=== PATIENT | male | born 1960 | race Caucasian/White ===

== ENCOUNTER 2016-08-11 17:16 | Inpatient (IN) | payer BC ==
[~2016-08-11] VITALS: Ht 182.9 cm; Wt 138.2 kg
[~2016-08-11 17:16] MED LIST: ALT10 PO; AMBCR125 PO; ESCI1TAB10 PO; MULT-506 PO; RISP1TAB68 PO
[2016-08-11] MEDS ORDERED: OPTIRAY 320 IV PRN (17:45)
[2016-08-11 17:51] LABS: BASO % 0.4 %; BASO ABS # 0.03 K/uL (0-0.2); COMPLETE YES; EOS % 6.3 %; HEMATOCRIT 55.8 % (42-52); IG% 0.3 %; LYMPH ABS # 2.32 K/uL (1.2-3.4); MEAN CORPUSCULAR HEMOGLOBIN 32.4 pg (25-34); MEAN CORPUSCULAR HGB CONC 32.4 g/dl (32-36); MEAN PLATELET VOLUME 9.1 fL (7.4-10.4); MONO % 9.3 %; NEUT % 54.7 %; PLATELET COUNT 208 K/uL (130-400); RED BLOOD COUNT 5.58 M/uL (4.7-6.1)
[2016-08-11] MEDS ORDERED: TRAM-10 PO (17:54)
[2016-08-11] MEDS ORDERED: HYDR12.55 PO (17:54)
[2016-08-11] MEDS ORDERED: IBUP-1449 PO (17:54)
[2016-08-11] MEDS ORDERED: ALT/10 PO (17:54)
[2016-08-11] MEDS ORDERED: FRS/40 PO (17:54)
[2016-08-11 17:55] LABS: ISTAT CREATININE 0.9 mg/dl (0.6-1.3); ISTAT HEMOGLOBIN 19.7 g/dl (14.0-18.0); ISTAT IONIZED CALCIUM 1.16 mmol/l (1.12-1.32)
[2016-08-11 17:59] LABS: POINT OF CARE TROPONIN I 0.02 ng/ml (0-0.045)
--- NOTE | 2016-08-11 18:13 | DIAGNOSTIC IMAGING REPORT ---
SINGLE VIEW CHEST CLINICAL HISTORY: Atypical chest pain. FINDINGS: An AP, portable, upright chest radiograph is obtained. No prior studies are available for comparison at the time of dictation. The examination is degraded by portable technique and apical lordotic positioning. The heart is enlarged and there is pulmonary basilar congestion. There is elevation right hemidiaphragm and bibasilar atelectasis. No airspace consolidation is seen typical for pneumonia and there is no large pleural effusion. No pneumothorax is seen. The bony thorax is grossly intact. IMPRESSION: Cardiomegaly with evidence of mild congestive failure. Electronically signed by: Raffy Gleason M.D. 08/11/2016 6:12 PM Dictated Date/Time: 08/11/2016 6:12 PM
[2016-08-11 18:16] LABS: BUN/CREATININE RATIO 19.9 (10-20); CREATININE 0.96 mg/dl (0.60-1.40); POTASSIUM 4.6 mmol/L (3.5-5.1)
[2016-08-11 18:25] LABS: CKMB/CK RATIO 2.7 (0-3.0)
--- NOTE | 2016-08-11 18:40 | DIAGNOSTIC IMAGING REPORT ---
CT ANGIOGRAM OF THE CHEST CLINICAL HISTORY: Dyspnea. Leg swelling. COMPARISON STUDY: Chest x-ray dated 08/11/2016. TECHNIQUE: Following the IV administration of 94 cc of Optiray 320, CT angiogram of the chest was performed from the upper abdomen to the thoracic inlet utilizing the pulmonary embolus protocol. Images are reviewed in the axial, sagittal, and coronal planes. 3-D MIPS images are created and assessed. IV contrast was administered without complication. The examination is moderately degraded by motion artifact. CT DOSE: 776.79 mGy.cm FINDINGS: Thyroid: Imaged portions of the thyroid gland are normal in size and attenuation. Thoracic aorta: The thoracic aorta is normal in caliber and demonstrates standard 3-vessel arch anatomy. No dissection is seen. Pulmonary vasculature: The pulmonary trunk is dilated, measuring 3.5 cm in diameter. This suggests pulmonary artery hypertension. There are no filling defects identified in main, lobar, or proximal segmental pulmonary branches to suggest pulmonary embolus. Evaluation of the peripheral vessels is degraded by motion artifact. Heart: The heart is enlarged and without pericardial effusion. There are coronary artery calcifications. Lungs and pleural spaces: Evaluation of the lung parenchyma is degraded by motion artifact. There is elevation of the right hemidiaphragm with atelectasis at the right lung base. No airspace consolidation is seen typical for pneumonia and there is no pleural effusion. The trachea and central airways are clear. Mediastinum: There is no mediastinal lymphadenopathy. Zari: Clear. Axillae: There is no axillary lymphadenopathy. Upper abdomen: The liver is enlarged and steatotic. There is nodularity of the surface contour suggesting early change of cirrhosis. A tiny hiatal hernia is identified. Skeletal structures: No lytic or blastic bony lesions are seen. IMPRESSION: 1. Motion degraded examination. 2. There is no evidence of pulmonary embolus in the main, lobar, or proximal segmental pulmonary arteries. 3. There is no airspace consolidation typical for pneumonia or pleural effusion. 4. Cardiomegaly with evidence of pulmonary artery hypertension. 5. Hepatomegaly and hepatic steatosis. Nodularity of the hepatic surface contour suggests early change of cirrhosis. Electronically signed by: Raffy Gleason M.D. 08/11/2016 6:38 PM Dictated Date/Time: 08/11/2016 6:33 PM
[2016-08-11 18:43] LABS: PROTHROMBIN TIME (PATIENT) 10.6 SECONDS (9.0-12.0)
[2016-08-11] MEDS ORDERED: ASPIRIN 81 MG CHEW PO STA (18:52)
[2016-08-11] MEDS ORDERED: LEVALBUTEROL/IPRATROPIUM NEB INH STA (19:51)
[2016-08-11 19:52] LABS: THYROID STIMULATING HORMONE 2.88 uIu/ml (0.300-4.500)
[2016-08-11] MEDS ORDERED: ACETAMINOPHEN 325 MG TAB PO PRN (20:00)
[2016-08-11] MEDS ORDERED: TRAMADOL HCL 50 MG TAB PO PRN (20:00)
[2016-08-11] MEDS ORDERED: LEVALBUTEROL/IPRATROPIUM NEB INH PRN (20:00)
[2016-08-11] MEDS ORDERED: NITROGLYCERIN 0.4 MG SL PER TAB CHARGE SL PRN (20:00)
[2016-08-11 20:10] LABS: ALLEN TEST POS (POS); ARTERIAL BLD GAS O2 SATURATION 80.2 % (90-95); ARTERIAL BLOOD GAS BASE EXCESS 5.5 mEq/L (-9-1.8); ARTERIAL BLOOD GAS HCO3 35 mmol/L (19-24); ARTERIAL BLOOD GAS PO2 47 mmHg (80-95); O2 ADMINISTRATION ROOM AIR
--- NOTE | 2016-08-11 20:53 | DIAGNOSTIC IMAGING REPORT ---
ULTRASOUND BILATERAL LOWER EXTREMITY VENOUS CLINICAL HISTORY: Lower extremity edema. COMPARISON STUDY: No priors. TECHNIQUE: Real-time, grayscale, and color Doppler sonography of the deep veins of the right and left lower extremity was performed from the inguinal crease to the calf. Compression and augmentation were utilized. FINDINGS: There is no sonographic evidence of deep venous thrombosis identified in the right or left lower extremity. The common femoral, superficial femoral, and popliteal veins are patent and normally compressible bilaterally. The greater saphenous vein and the profunda femoris vein at the junction with the common femoral vein are clear in both legs. The visualized calf veins are patent bilaterally. IMPRESSION: There is no sonographic evidence of deep venous thrombosis identified in the right or left lower extremity. Electronically signed by: Raffy Gleason M.D. 08/11/2016 8:52 PM Dictated Date/Time: 08/11/2016 8:51 PM
[2016-08-11 21:10] VITALS: BP 150/87; PULSE 96; TEMP 37; O2SAT 79; Ht 182.9 cm; Wt 138.2 kg
[2016-08-11] MEDS ORDERED: IPRATROPIUM BROMIDE NEB SOLN 0.02% 2.5 ML VIAL INH STA (21:28)
[2016-08-11] MEDS ORDERED: LEVALBUTEROL 1.25MG/0.5ML NEB INH STA (21:28)
[2016-08-11] MEDS ORDERED: LEVALBUTEROL 1.25MG/0.5ML NEB INH PRN (21:30)
[2016-08-11] MEDS ORDERED: IPRATROPIUM BROMIDE NEB SOLN 0.02% 2.5 ML VIAL INH PRN (21:30)
[2016-08-11] MEDS ORDERED: LISINOPRIL 2.5 MG TAB PO STA (21:57)
[2016-08-11] MEDS: ENOXAPARIN 40 MG/0.4 ML SYR SC SCH (22:00)
[2016-08-11 22:14] VITALS: PULSE 105; O2SAT 93
--- NOTE | 2016-08-11 22:28 | HISTORY & PHYSICAL EXAMINATION ---
DATE OF ADMISSION: 08/11/2016 PRIMARY CARE DOCTOR: Dr. Christianson. Hx obtained from px and records. CHIEF COMPLAINT: Shortness of breath, sent by cleaning specialist. HISTORY OF PRESENT ILLNESS: Medical history significant for chronic diastolic HF, hypertension, depression, ongoing tobacco abuse. Recent confinement 2009 at the mental health unit for depression. The last month, the patient noted shortness of breath, especially on exertion. No new cough symptoms. Increasing abdominal distention and libby leg swelling. some orthopnea sx. weight gain of about 40 lbs as per px. Seen at PCP's office 3 weeks ago. CXR pulm congestion Px started on diuretics. Improvement of swelling and symptoms. Outpx Cardiology evaluation today. 2D echo showed LVH, mild. EF 60%-70%. RV pressure, volume overload, grade 1 diastolic dysfunction, RV dilatation, typical of acute PE, mild lateral right ventricle akinesis, sparing the basal and apical lateral segments, congenital bicuspid aortic valve, mild calcific aortic valve without stenosis. pulmonary hypertension present. Patient sent to the Emergency Room for further evaluation. Px unaware of snoring sx even when was still alive. Claims he had a normal sleep study years ago after a sinus surgery. MEDICAL HISTORY: As above. SURGERIES: sinus surgery. HOME MEDICATIONS: Include Lasix, HCTZ, Motrin, multivitamins, Altace, Ultram. ALLERGIES: None. FAMILY HISTORY: No heart disease, no lung disease. PERSONAL AND SOCIAL HISTORY: One pack daily. No chronic intake of alcoholic beverages. 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 REVIEW OF SYSTEMS: As per HPI, all other ROS negative. PHYSICAL EXAMINATION: VITAL SIGNS: Blood pressure was noted to be 120/80, pulse rate 101, RR 20, temperature 37, sats 92 on 3 liters. GENERAL: Noted to be obese, no overt respiratory distress. SKIN: Normal color. HEENT: [place] palpebral conjuctivae. Moist buccal mucosa. nasal cannula in place NECK: Short. LUNGS: Occasional wheeze. HEART: Tachycardic. ABDOMEN: Some distension. NT EXTREMITIES: Bilateral lower extremity edema, right greater than left. No tenderness. NEUROLOGIC: No gross focality. LABS: Hemoglobin was noted to be 18.1, white cell count 8, platelets 208. Sodium 136, potassium 4.6, chloride 96, CO2 35, BUN 19, creatinine 0.9, glucose was noted to be 98, troponin 0.02. BNP was normal. Chest x-ray, some congestion, cardiomegaly. CTA noted no evidence of pulmonary embolus, main, lobar, proximal segment pulmonary arteries. cardiomegaly, pulmonary hypertension, hepatomegaly, hepatic steatosis. EKG, normal sinus rhythm, LAD, LAFB, LVH, poor R-wave progression. ASSESSMENT: 1. Acute diastolic congestive heart failure right sided HF possible OHS, underlying chronic obstructive pulmonary disease subacute sx some improvement ff outpx diuretic therapy instituted a few weeks back. 2. Hypoxemic respiratory failure possible hypercapnia possibly chronic 3. Hypertension, stable. 4. Ongoing tobacco abuse. 5. Depression, stable off meds. 6. LE swelling 2 to RSHF ro dvt PLAN: PCU. Continue home diuretics Further management as per Cardiology. Plan for possible right-sided cardiac catheterization tomorrow as per outpx Cardio note. Baseline ABG. Outpatient PFTs/Sleep study/Pulmonary evaluation. Nicotine patch. LE dopplers ro dvt DVT prophylaxis, Lovenox subQ. Full code. MTDD
[2016-08-11 23:22] VITALS: BP 122/70; PULSE 98; TEMP 36.8; O2SAT 90
[2016-08-12] VITALS (9 sets, daily range): BP systolic 115–146; BP diastolic 73–77; PULSE 83–127; TEMP 36.7–37.2; O2SAT 88–93
[2016-08-12] MEDS ORDERED: [UNRECOGNIZED DRUG - REMARK] SCH
[2016-08-12 06:16] LABS: BASO % 0.3 %; BASO ABS # 0.02 K/uL (0-0.2); COMPLETE YES; EOS % 4.9 %; HEMATOCRIT 56.6 % (42-52); IG% 0.1 %; LYMPH % 21.5 %; LYMPH ABS # 1.58 K/uL (1.2-3.4); MEAN CELL VOLUME 103.3 fL (80-100); MEAN CORPUSCULAR HEMOGLOBIN 33.2 pg (25-34); MEAN CORPUSCULAR HGB CONC 32.2 g/dl (32-36); MEAN PLATELET VOLUME 8.9 fL (7.4-10.4); MONO % 8.7 %; NEUT % 64.5 %; PLATELET COUNT 176 K/uL (130-400); RED BLOOD COUNT 5.48 M/uL (4.7-6.1); WHITE BLOOD COUNT 7.36 K/uL (4.8-10.8)
[2016-08-12 06:56] LABS: BUN/CREATININE RATIO 22.2 (10-20); CALCIUM 8.9 mg/dl (8.5-10.1); CREATININE 0.86 mg/dl (0.60-1.40); POTASSIUM 4.9 mmol/L (3.5-5.1)
--- NOTE | 2016-08-12 07:55 | PULMONARY CONSULTATION ---
DATE OF CONSULTATION: 08/12/2016 DATE OF CONSULTATION: 08/12/2016. HISTORY OF PRESENT ILLNESS: The patient is a pleasant 55-year-old male admitted to the hospital on the and presented with shortness of breath. Dr. Cheung has asked me to evaluate the patient from a pulmonary standpoint since the patient has significant hypercapnia. He has had shortness of breath over the last 3 months. Prior to that actually he states he was doing fairly well. He has not had any cough, significant sputum production, but developed about 30-pound weight gain associated with profound peripheral edema. He carries a history of some diastolic heart failure with pulmonary hypertension and continued tobacco use. He was seen in his physician's office 3 weeks ago and chest x-ray showed "pulmonary congestion", although I do not have that film. He had outpatient cardiology evaluation done and was noted to have volume overload with grade 1 diastolic dysfunction, right ventricular dilatation and was admitted to the hospital for treatment of possible pulmonary embolism. CT angiogram of the thorax showed no evidence of pulmonary emboli but did suggest changes consistent with pulmonary hypertension. The pulmonary trunk was dilated to 35 mm. There was cardiomegaly with coronary calcifications, elevation of the right hemidiaphragm with some atelectasis at the right base as well and steatosis of the liver. Changes consistent with cirrhosis of liver were noted as well with small hiatal hernia. He was placed on diuretics and with diuresis he has lost 2.6 kg. He states he is feeling better today. Prior to the development of the significant peripheral edema he actually was fairly stable. A month ago he had difficulty with catching his 3-year-old grandson when running in a park because of shortness of breath. 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 He has some episodes of frequent awakenings at night he relates to the use of diuretic and snoring. His is in March and so he was noted to be heavy snorer in the past. He denies morning headaches, states his dream quality is just fair. He does not have a significant hypersomnia during the day and states he feels fairly well rested for the most part. REVIEW OF SYSTEMS: Otherwise is unremarkable. PAST MEDICAL HISTORY: Positive for obesity, depression after his 's illness. Grade 1 diastolic dysfunction, pulmonary hypertension, congenital bicuspid aortic valve, mild calcific aortic stenosis, obesity, sinusitis. PAST SURGICAL HISTORY: Sinus surgery [place] [address] Ray for chronic sinusitis. At that time he had bilateral ethmoid antrostomies with septoplasty and sinusotomy with removal of osteoma at that time. He also carries a history of some hypertension. ALLERGIES: None. SOCIAL HISTORY: Smoking 2 packs of cigarettes daily, originally from [facility] and has been smoking for about 35 years. He rarely drinks alcohol now. He was drinking several beers a day, states he quit that now. 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 He was in the service in the [employer] and then in the [employer] for a number of years with no significant injuries. He has 2 children. He is not an illicit drug user. MEDICATIONS: Noted. PHYSICAL EXAMINATION: VITAL SIGNS: His blood pressure 125/73, pulse is 90 and regular, respiratory rate 20, oxygen saturation 92% on 4 liters and he is afebrile. His weight is down from 144.6 to 142 kilograms. I\\T\\O is not noted. According to nurses' notes, he had a fairly good night last night had been placed on BiPAP. Apparently, he has some cats and a boxer dog at home that would keep him awake at night. He was concerned about wearing the BiPAP at night. I discussed that with him at great length and his need to wear the BiPAP and he has agreed. HEAD, EYES, EARS, NOSE, AND THROAT: Reveals normal nose with normal septum. No tenderness over the sinuses. He has a very small posterior pharynx, large tongue, low lying soft palate with no evidence of upper airway obstruction. Trachea midline. Thyroid nonpalpable. No adenopathy noted. HEART: Regular rate and rhythm. I do not detect any gallops or murmurs. LUNGS: Reveal decreased breath sounds, otherwise are clear. No crackles or rales noted. No fremitus is noted. Expansion of the thorax is good with deep inspiration. No muscular weakness is noted. ABDOMEN: Soft and massively obese. I could not palpate the liver or spleen. He has +3 edema of the pretibial area. No cyanosis or clubbing is noted. CT scan is noted as above. Venous Doppler study showed no evidence of DVT in the lower extremities. White count 7.36, hemoglobin is 18.2 with hematocrit considerably increased at 56.6 with macrocytic indices, platelet count 176,000. Blood gas revealed pH 7.30, pCO2 of 73, pO2 of only 47 on room air at 8:00 last night. PRP shows a CO2 of 38 this morning with normal liver function studies. BNP was only 454 with normal TSH. IMPRESSION: 1. Respiratory failure with hypercapnia profound hypoxemia. This most likely is related to chronic obstructive lung disease and hypoventilation syndrome. 2. Chronic obstructive pulmonary disease with exacerbation. 3. Probable profound hypoventilation syndrome. I suspect he probably has significant nocturnal hypoxemia hence his symptoms of hypercapnia with a respiratory acidosis and elevated hematocrit, probably secondary to chronic hypoxemia at night. 4. Grade 1 diastolic dysfunction. 5. Pulmonary hypertension. The pulmonary hypertension probably is related to sleep disordered breathing. RECOMMENDATIONS: 1. BiPAP at night. I added an ST rate to the BiPAP. He will need a sleep study as an outpatient. 2. He will continue with his inhalers. 3. Smoking cessation. We discussed this at great length. 4. Continue with diuresis and weight reduction. 5. Check a set of pulmonary function studies as an outpatient. The main treatment for him right now will be good diuresis and use of BiPAP. He states he is feeling considerably improved today compared to yesterday. Good DVT prophylaxis will be recommended as well. Thanks for asking me to evaluate Mr. Dietrich and he could follow up with Dr. Field as an outpatient when he is discharged.
[2016-08-12] MEDS: FUROSEMIDE 40 MG TAB PO SCH (08:17)
[2016-08-12] MEDS: MULTIVITAMIN TAB PO SCH (08:17)
[2016-08-12] MEDS: NICOTINE 21 MG/24 HR TDSY TD SCH (08:18)
--- NOTE | 2016-08-12 09:13 | Clinical Documentation Query ---
AMISHA Gusman : CLINICAL DOCUMENTATION QUERY Patient is a 55 year old male admitted for evaluation and treatment of acute on chronic diastolic CHF and "hypoxemic respiratory failure, possible hypercapnea, possibly chronic". ABG's demonstrated a pH of 7.30, pCO2 of 73, pO2 of 47, HCO3 of 35 with an O2 sat of 80% and Base Excess of 5.5 on room air, suggesting acute on chronic hypercarbia and acute hypoxemia As appropriate, consider clarification as suggested below to avoid technology training associate uncertainty as to the acuity/chronicity of hypercarbia and hypoxemia in your patient. In your clinical opinion is this patient being managed for: ( x ) Acute on chronic hypercapneic and acute hypoxemic respiratory failure ( ) Other explanation of clinical findings (Please Explain) ( ) Unable to determine (Please Define) ( ) Need to Discuss ( ) Not Agree The medical record reflects the following clinical findings, treatment, and risk factors. Clinical Indicators: As above Treatment: Telemetry, Pulmonary consultation, Bi-PAP, nebs, labs, diuresis, cardiology consultation. Risk Factors: Obesity, COPD Please clarify and document your clinical opinion in the progress notes and discharge summary. Terms such as "probable", "suspected", "likely", "questionable", "possible", or "still to be ruled out" are acceptable. IF IN AGREEMENT, YOU MUST DOCUMENT ABOVE DIAGNOSTIC STATEMENT IN DAILY PROGRESS NOTES AND DISCHARGE SUMMARY. This document is not part of the patient's record. Thank You, Tyrell Nam, RN [phone]
--- NOTE | 2016-08-12 10:37 | Cardiology Consultation ---
Cardiology Consultation Date of Consultation: August 12, 2016 Requesting Physician: Skye Attending Digging Machine Operator: Jenna (Ricardo Rand PA-C) History of Present Illness Mr. Dietrich is a 55 year old male who is being seen at the request of Dr. Cheung. Reason for consultation is heart failure. Mr. Dietrich notes the passing of his on April 05, 2016 with metastatic breast cancer. He notes that he went from being active, walking daily to not wanting to get out of bed. Notes only working three or four days since her passing, decreased concentration, increased appetite, drinking 3-4 beers per day , difficulty sleeping, depression. He was being seen by Dr. Christianson, prescribed Lexapro then with lorazepam added for anxiety in May. On July 27, [address] Myers's office with right greater than left lower extremity peripheral edema, weight gain, and dyspnea. He was referred for a chest x-ray, laboratory work, and a resting echocardiogram. D-Dimer was negative on 2016. CXR was interpreted by the radiologist at [facility] as demonstrating a right lower lobe opacity (? atelectasis and/or pneumonia) and mild pulmonary vascular congestion with increased interstitial markings. He was started on furosemide 20 mg/day. He notes loosing 6 pounds with the addition of furosemide 20 mg/day. He was reevaluated by his PCP on 08/04/2016 at which time furosemide was increased to 40 mg/day, resultant additional 4 pound weight loss and improvement in abdominal distention as well as the lower extremity edema. He was referred for an abdominal ultrasound which was negative for ascites or pleural effusion, revealing hepatomegaly and mild hepatic steatosis. On August 11, 2016 he underwent resting echocardiography which demonstrated normal LV chamber size with mild concentric LVH. LV systolic function was normal, EF 65 -70%. Abnormal septal wall motion was observed, consistent with RV pressure/ volume overload. The right ventricular cavity was noted to be moderately dilated with reduced function. There was mid lateral right ventricular akinesis to dyskinesis with sparing of the basal and apical lateral segments. The aortic valve was noted to be congenitally bicuspid, mildly calcified, without stenosis or significant regurgitation. Pulmonary hypertension present, PASP 50 mm Hg. Grade I diastolic dysfunction observed. The patient was see by Dr. Sherman at the time of the resting echocardiogram. He was referred to [facility] for further evaluation, concern for PE. CT of the chest showed no evidence of pulmonary embolus in the main, lobar, or proximal segmental pulmonary arteries. There was no airspace consolidation typical for pneumonia or pleural effusion. There was cardiomegaly with evidence of pulmonary artery hypertension and hepatomegaly along with hepatic steatosis and nodularity of the hepatic surface contour suggestive of early cirrhosis. Venous duplex showed no evidence of DVT in either lower extremity. CXR, as per Dr. Gleason, revealed cardiomegaly with evidence of mild congestive failure. Blood gas revealed a pH 7.30, pCO2 of 73, pO2 of only 47 on room air. Serum CO2 is 38 this morning. BNP was normal. (Ricardo Rand PA-C) History Past Medical and Surgical History: COPD Longstanding tobacco abuse, ongoing Hypertension Obesity. Depression Testicular hypofunction Erectile dysfunction Sinus surgery Family History: Not notable for CAD. Father in his 70's, unknown cause. Mother in her 60's with brain cancer. He has a half brother and half sister without cardiac issues. Social History: Smoker, currently 1.5 to 2 ppd. He started smoking around the age of 25. Alcohol: 3-4 12 ounce beers per day. He denies illegal drug use. ; passed 04/05/2016 with metastatic breast cancer. Originally from [place], [place]. 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 (Ricardo Rand PA-C) Review Of Systems General: 40-50 lb weight gain since the passing of his . No fevers. No chills. No recent illness. HEENT: Glasses. Cataracts. Floaters. No headaches. No head trauma. 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 No palpitations. Starting in July he has experienced orthopnea, PND, increased edema. No near syncope or syncope. Pulmonary: + Cough. Excessive snoring. No hemoptysis. Gastrointestinal: Abdominal bloating. Early satiety. Fatty liver. No vomiting. No diarrhea. No melena or hematochezia. Skin: Erythema of the right lower extremity. No rash. Musculoskeletal: Knee pain. No injuries. Neurological: Denies history of TIA, CVA, or seizures Complete review of systems is as stated above, negative, or noncontributory. (Ricardo Rand PA-C) Allergies Coded Allergies: No Known Allergies (Unverified , 12/22/09) Medications Reported Home Medications Medications Dose Route/Sig Max Daily Dose Days Date Category Motrin (Ibuprofen) 400 Mg Tab 400 Mg PO BID PRN 08/11/16 Reported Ultram (Tramadol HCl) 50 Mg Tab 50 Mg PO Q6H PRN 08/11/16 Reported Hydrochlorothiazide 12.5 Mg Tab 12.5 Mg PO DAILY 08/11/16 Reported Lasix (Furosemide) 40 Mg Tab 40 Mg PO DAILY 08/11/16 Reported Altace (Ramipril) 10 Mg Cap 10 Mg PO BID 08/11/16 Reported Multivitamin (Multivitamins) Tab 1 Tab PO QAM 12/22/09 Reported (Ricardo Rand PA-C) Physical Exam Vital Signs (Last 8hrs): Last 8 Hrs Date Time Temp Pulse Resp B/P Pulse Ox O2 Delivery O2 Flow Rate FiO2 08/12/16 09:23 89 18 92 Nasal Cannula 4.0 08/12/16 08:00 Room Air 08/12/16 07:46 36.7 98 20 134/77 92 Nasal Cannula 4.0 08/12/16 04:00 Nasal Cannula 08/12/16 03:43 36.8 92 21 125/73 92 Nasal Cannula 4.0 General Appearance: Alert and Oriented x3. NAD. Elevated BMI. Head: Normocephalic Atraumatic. Eyes: PER. EOMI. Conjunctiva and sclera clear Neck: Supple. No carotid bruits. No JVD. No HJD. Respiratory: Considerably decreased breath sounds. Right lower lobe rhonchi. Diffuse anterior and posterior expiratory wheezing. Cardiovascular: Regular at 100 bpm. Soft systolic ejection murmur. No diastolic murmur. No rub. No gallop. PMI non displaced. Abdomen: Obese. Normal bowel sounds. Soft. Nontender. Extremities: 1-2+ right greater than left lower extremity edema. Minimal erythema. No overt cellulitis. No clubbing. No cyanosis. Distal pulses 2/4 bilaterally. Neuro: No focal deficits. Psychiatric: Flat affect. (Ricardo Rand PA-C) Data Last 24 Hours Test 08/11/16 17:35 08/11/16 17:40 5/3/17 17:43 08/11/16 18:23 White Blood Count 8.00 K/uL Red Blood Count 5.58 M/uL Hemoglobin 18.1 g/dL Hematocrit 55.8 % Mean Corpuscular Volume 100.0 fL Mean Corpuscular Hemoglobin 32.4 pg Mean Corpuscular Hemoglobin Concent 32.4 g/dl Platelet Count 208 K/uL Mean Platelet Volume 9.1 fL Neutrophils (%) (Auto) 54.7 % Lymphocytes (%) (Auto) 29.0 % Monocytes (%) (Auto) 9.3 % Eosinophils (%) (Auto) 6.3 % Basophils (%) (Auto) 0.4 % Neutrophils # (Auto) 4.39 K/uL Lymphocytes # (Auto) 2.32 K/uL Monocytes # (Auto) 0.74 K/uL Eosinophils # (Auto) 0.50 K/uL Basophils # (Auto) 0.03 K/uL RDW Standard Deviation 53.8 fL RDW Coefficient of Variation 14.6 % Immature Granulocyte % (Auto) 0.3 % Immature Granulocyte # (Auto) 0.02 K/uL Sodium Level 136 mmol/L Potassium Level 4.6 mmol/L Chloride Level 96 mmol/L Carbon Dioxide Level 35 mmol/L Anion Gap 5.0 mmol/L 16.0 mmol/L Blood Urea Nitrogen 19 mg/dl Creatinine 0.96 mg/dl Est Creatinine Clear Calc Drug Dose 131.4 ml/min Estimated GFR () 104.2 Estimated GFR (Non- 89.9 BUN/Creatinine Ratio 19.9 Random Glucose 98 mg/dl Calcium Level 9.0 mg/dl Magnesium Level 2.0 mg/dl Total Bilirubin 0.6 mg/dl Direct Bilirubin 0.1 mg/dl Aspartate Amino Transf (AST/SGOT) 23 U/L Alanine Aminotransferase (ALT/SGPT) 43 U/L Alkaline Phosphatase 99 U/L Total Creatine Kinase 71 U/L Creatine Kinase MB 1.9 ng/ml Creatine Kinase MB Ratio 2.7 Total Protein 7.5 gm/dl Albumin 4.0 gm/dl Lipase 130 U/L Thyroid Stimulating Hormone (TSH) 2.880 uIu/ml Bedside Troponin I 0.020 ng/ml FF-Arp-M-Type Natriuretic Peptide 454 pg/ml Bedside Hemoglobin 19.7 g/dl Bedside Hematocrit 58 % Bedside Sodium 136 mEq/L Bedside Potassium 4.6 mEq/L Bedside Chloride 92 mEq/L Bedside Total CO2 33 mEq/l Bedside Blood Urea Nitrogen 21 mg/dl Bedside Creatinine 0.9 mg/dl Bedside Glucose (other) 102 mg/dl Bedside Ionized Calcium (Salma) 1.16 mmol/l Prothrombin Time 10.6 SECONDS Prothromb Time International Ratio 1.0 Activated Partial Thromboplast Time 26.8 SECONDS Partial Thromboplastin Ratio 1.0 Test 08/11/16 19:57 08/12/16 05:57 Arterial Blood pH 7.30 Arterial Blood Partial Pressure CO2 73 mmHg Arterial Blood Partial Pressure O2 47 mmHg Arterial Blood HCO3 35 mmol/L Arterial Blood Oxygen Saturation 80.2 % Arterial Blood Base Excess 5.5 mEq/L Arterial Blood Gas Delivery ROOM AIR Jose Test POS White Blood Count 7.36 K/uL Red Blood Count 5.48 M/uL Hemoglobin 18.2 g/dL Hematocrit 56.6 % Mean Corpuscular Volume 103.3 fL Mean Corpuscular Hemoglobin 33.2 pg Mean Corpuscular Hemoglobin Concent 32.2 g/dl Platelet Count 176 K/uL Mean Platelet Volume 8.9 fL Neutrophils (%) (Auto) 64.5 % Lymphocytes (%) (Auto) 21.5 % Monocytes (%) (Auto) 8.7 % Eosinophils (%) (Auto) 4.9 % Basophils (%) (Auto) 0.3 % Neutrophils # (Auto) 4.75 K/uL Lymphocytes # (Auto) 1.58 K/uL Monocytes # (Auto) 0.64 K/uL Eosinophils # (Auto) 0.36 K/uL Basophils # (Auto) 0.02 K/uL RDW Standard Deviation 56.2 fL RDW Coefficient of Variation 14.7 % Immature Granulocyte % (Auto) 0.1 % Immature Granulocyte # (Auto) 0.01 K/uL Sodium Level 139 mmol/L Potassium Level 4.9 mmol/L Chloride Level 99 mmol/L Carbon Dioxide Level 38 mmol/L Anion Gap 2.0 mmol/L Blood Urea Nitrogen 19 mg/dl Creatinine 0.86 mg/dl Est Creatinine Clear Calc Drug Dose 145.2 ml/min Estimated GFR () 114.7 Estimated GFR (Non- 99.0 BUN/Creatinine Ratio 22.2 Random Glucose 106 mg/dl Calcium Level 8.9 mg/dl EKG dated and timed 11-AUG-2016 @ 17:22:22: Normal sinus rhythm. Left axis deviation. Left ventricular hypertrophy with QRS widening and repolarization abnormality. Inferior infarct, age undetermined. When compared with ECG of Mar-2000 12:12, premature ectopic complexes are no longer present. QRS duration has increased. Inferior infarct is now Present. EKG dated and timed 12-AUG-2016 @ 06:21:05: Normal sinus rhythm at 99 bpm. Left axis deviation. Inferior infarct (cited on or before 11-AUG-2016). Telemetry: Sinus. Sinus tachycardia. Occasional PVC, very rare couplet. No sustained runs. No significant bradyarrhythmias or pauses. (Ricardo Rand PA-C) Assessment & Plan Respiratory failure with hypercapnia, profound hypoxemia, probable secondary polycythemia, right ventricular dysfunction and pulmonary hypertension appearing to be secondary to marked obesity hypoventilation syndrome and significant underlying chronic obstructive pulmonary disease with acute exacerbation, continued chronic tobacco abuse. RECOMMENDATIONS: Shave facial hair BiPAP therapy strongly encouraged. Continue furosemide as presently prescribed Discontinue HCTZ Add Toprol XL 25 mg/day Add Losartan 25 mg/day (Ramipril is not on formulary) Add ASA 81 mg/day ? ability to add statin given CT finding suggestive of cirrhosis NPO after midnight tonight. ? Full right and left heart catheterization Tobacco cessation DVT prophylaxis, Lovenox. Recommend routine follow-up of the congenitally bicuspid aortic valve. Further recommendations pending the above, evaluation by Dr. West, and his ongoing hospitalization. (Ricardo Rand PA-C) CARDIOLOGY ATTENDING ADDENDUM: The patient was seen and personally examined. Agree with Ricardo Rand PA-C's findings and plans as documented above with additions noted below. At this time, given ABG , echo, clinical findings, with hypoxia, CO2 retention, right heart failure. Trop was negative, BNP only minimally elevated. Although patient has coronary risk factors and coronary calcification, presentation does not seem to be due to subacute isolated right ventricular infarction, but rather obesity hypoventilation syndrome with pulmonary hypertension and resultant RV failure and congestive hepatopathy. Recommend diuretic therapy, CPAP. Hold off on cardiac catheterization for now, but can reconsider depending on progress with treatment as planned. Continue lovenox for DVT prophylaxis. (Nick West D.O.)
[2016-08-12] MEDS: ASPIRIN 81 MG ECTAB PO SCH (11:32)
[2016-08-12] MEDS: METOPROLOL SUCC 25MG EXT REL TAB PO SCH (11:32)
[2016-08-12] MEDS: ENOXAPARIN 40 MG/0.4 ML SYR SC SCH (20:06)
--- NOTE | 2016-08-12 22:47 | Progress Note ---
Medicine Progress Note Date & Time of Visit: August 12, 2016 at 16:00 . Subjective Feels a bit less SOB. No chest pain. No fever. No cough. No nausea or vomiting. . Objective Last 8 Hrs Date Time Temp Pulse Resp B/P Pulse Ox O2 Delivery O2 Flow Rate FiO2 08/12/16 21:47 83 93 3.0 08/12/16 20:00 Nasal Cannula 4.0 08/12/16 19:54 37.2 90 20 146/77 92 Nasal Cannula 4.0 08/12/16 16:00 Nasal Cannula 4.0 08/12/16 16:00 93 Nasal Cannula 4.0 08/12/16 15:55 37.1 100 20 122/76 88 3.0 Physical Exam: General- lying in bed, no acute distress Eyes- anicteric Neck- + JVD Lungs- diffuse mild wheezing Heart- RRR, increased P2 Abdomen- obese, + BS, soft, nontender Extremities- 3+ pretibial edema; no calf tenderness Neuro- alert . Laboratory Results: Last 24 Hours Test 08/12/16 05:57 White Blood Count 7.36 K/uL Red Blood Count 5.48 M/uL Hemoglobin 18.2 g/dL Hematocrit 56.6 % Mean Corpuscular Volume 103.3 fL Mean Corpuscular Hemoglobin 33.2 pg Mean Corpuscular Hemoglobin Concent 32.2 g/dl Platelet Count 176 K/uL Mean Platelet Volume 8.9 fL Neutrophils (%) (Auto) 64.5 % Lymphocytes (%) (Auto) 21.5 % Monocytes (%) (Auto) 8.7 % Eosinophils (%) (Auto) 4.9 % Basophils (%) (Auto) 0.3 % Neutrophils # (Auto) 4.75 K/uL Lymphocytes # (Auto) 1.58 K/uL Monocytes # (Auto) 0.64 K/uL Eosinophils # (Auto) 0.36 K/uL Basophils # (Auto) 0.02 K/uL RDW Standard Deviation 56.2 fL RDW Coefficient of Variation 14.7 % Immature Granulocyte % (Auto) 0.1 % Immature Granulocyte # (Auto) 0.01 K/uL Sodium Level 139 mmol/L Potassium Level 4.9 mmol/L Chloride Level 99 mmol/L Carbon Dioxide Level 38 mmol/L Anion Gap 2.0 mmol/L Blood Urea Nitrogen 19 mg/dl Creatinine 0.86 mg/dl Est Creatinine Clear Calc Drug Dose 145.2 ml/min Estimated GFR () 114.7 Estimated GFR (Non- 99.0 BUN/Creatinine Ratio 22.2 Random Glucose 106 mg/dl Calcium Level 8.9 mg/dl Assessment & Plan CHF Echo performed in clinic demonstrated dilated RV, pulmonary hypertension, normal LVEF, diastolic dysfunction. Primarily acute right ventricular heart failure mixed with left ventricular diastolic failure. IV diuretics. Pulmonary management as discussed below. ACUTE HYPERCAPNIC AND HYPOXIC RESPIRATORY FAILURE Probably combination of COPD and obesity hypoventilation syndrome. CTA chest negative for pulmonary embolism. Pulmonary Medicine consulted. Nebs ordered. BiPAP recommended. POSSIBLE CIRRHOSIS Incidental finding on CTA chest was hepatomegaly, steatosis, nodularity of hepatic surface suggesting early cirrhosis. Moderate drinking in past (3 beers a night), but not at this time. May have fatty liver disease. Will need GI f/u as outpatient. VTE PROPHYLAXIS SQ enoxaparin. Ambulate. DISPOSITION Expected discharge to home. Family Medicine follow-up with Dr. Christianson. . Current Inpatient Medications: Current Inpatient Medications Medications (Trade) Dose Ordered Sig/Colin Route Start Time Stop Time Status Last Admin Dose Admin Ioversol (Optiray 320) 100 ml UD PRN IV 08/11/16 17:45 08/15/16 17:44 Enoxaparin Sodium (Lovenox Inj) 40 mg Q24H SC 08/11/16 22:00 09/10/16 21:59 08/12/16 20:06 40 MG Acetaminophen (Tylenol Tab) 650 mg Q4H PRN PO 08/11/16 20:00 09/10/16 19:59 Nitroglycerin (Nitrostat Tab) 0.4 mg UD PRN SL 08/11/16 20:00 09/10/16 19:59 Nicotine (Nicoderm Cq 21MG Patch) 1 patch QAM TD 08/12/16 09:00 09/11/16 08:59 Miscellaneous (Remove Nicoderm Patch) 1 ea HS N/A 08/12/16 21:00 09/11/16 20:59 08/12/16 20:05 1 EA Furosemide (Lasix Tab) 40 mg DAILY PO 08/12/16 09:00 09/11/16 08:59 08/12/16 08:17 40 MG Multivitamins (Multivitamin Tab) 1 tab QAM PO 08/12/16 09:00 09/11/16 08:59 08/12/16 08:17 1 TAB Tramadol HCl (Ultram Tab) 50 mg Q6H PRN PO 08/11/16 20:00 09/10/16 19:59 Ipratropium [place] (Atrovent 0.02% 0.5MG/2.5ML Neb) 0.5 mg Q4H PRN INH 08/11/16 21:30 09/10/16 21:29 08/12/16 09:23 0.5 MG Levalbuterol (Xopenex 1.25MG/ 0.5ML Neb) 1.25 mg Q4H PRN INH 08/11/16 21:30 09/10/16 21:29 08/12/16 09:23 1.25 MG Metoprolol Succinate (Toprol Xl Tab) 25 mg QAM PO 08/12/16 11:30 09/11/16 11:29 08/12/16 11:32 25 MG Losartan Potassium (coZAAR TAB) 25 mg QAM PO 08/13/16 09:00 09/12/16 08:59 Aspirin (Ecotrin Tab) 81 mg QAM PO 08/12/16 11:30 09/11/16 11:29 08/12/16 11:32 81 MG
[2016-08-13] VITALS (10 sets, daily range): BP systolic 92–148; BP diastolic 59–89; PULSE 22–104; TEMP 36.7–37.7; O2SAT 91–95
--- NOTE | 2016-08-13 00:35 | EMERGENCY ROOM VISIT NOTE ---
History Report prepared by Ally: Mayi Sheth Under the Supervision of: Dr. Tyrell Geiger M.D. First contact with patient: 17:19 Stated Complaint: CARDIAC/ EVAL History of Present Illness The patient is a 55 year old male who presents to the Emergency Room with complaints of persistent leg swelling for the past 3 weeks. He saw cardiology for an echo today and was sent here after they found the right side of his heart was not pumping well. They were concerned for a blood clot in the lungs. He has had SOB which worsens on exertion. The SOB started around the same time as his leg swelling. He has gained around 30 lbs since his symptoms began. One week ago he was started on Lasix and lost 10 lbs since then. His SOB has improved since then. He has some abdominal tightness and feels distended. He denies any chest pain, leg pain, fever, chills, or cough. He denies any recent travel. He has a history of smoking. He has a history of hypertension. 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 He has torn ligaments in his knees from walking. He has been under increased stress for the past 4 months after his passed. Lab work from August 08 shows creatinine at 1.0. Source of History: patient Onset: 3 weeks Position: leg (bilateral) Quality: other (swelling) Timing: other (persistent) Associated Symptoms: + SOB, + abdominal pain, No chest pain, No chills, No cough, No fevers Note: Pt reports weight gain. Pt denies leg pain. Review of Systems See HPI for pertinent positives & negatives. A total of 10 systems reviewed and were otherwise negative. Past Medical & Surgical Medical Problems: (1) CHF (congestive heart failure) (2) CHF (congestive heart failure) (3) Depression (4) Hypertension (5) Testicular hypofunction (6) Tobacco use disorder Surgical Problems: (1) H/O endoscopic sinus surgery Old medical records were reviewed. Nurse's notes were reviewed and I agree with. Family History No pertinent family history stated. Social History Smoking Status: Former Smoker Drug Use: none Marital Status: Occupation Status: employed Current/Historical Medications Scheduled Furosemide (Lasix), 40 MG PO DAILY Hydrochlorothiazide (Hydrochlorothiazide), 12.5 MG PO DAILY Multivitamin (Multivitamin), 1 TAB PO QAM Ramipril (Altace), 10 MG PO BID Scheduled PRN Ibuprofen Tab (Motrin), 400 MG PO BID PRN for Pain Tramadol (Ultram), 50 MG PO Q6H PRN for Pain Allergies Coded Allergies: No Known Allergies (Unverified , 12/22/09) Physical Exam Vital Signs Date Time Temp Pulse Resp B/P Pulse Ox O2 Delivery O2 Flow Rate FiO2 08/11/16 18:48 102 20 123/83 92 Nasal Cannula 3.0 08/11/16 17:31 99 08/11/16 17:29 95 Nasal Cannula 2.0 08/11/16 17:29 36.7 101 20 178/109 92 Room Air Physical Exam General: Non ill-appearing middle aged male in no acute distress. Well developed well nourished, breathing comfortably on room air. Normal speech HEENT: Normal cephalic atraumatic. Pupils are equal round and reactive to light. Extraocular movements are intact. Oropharynx is pink with moist mucous membranes. No swelling of the mouth lips or tongue. Neck: Supple with a midline trachea. No meningeal signs or stiffness, no JVD or bruits. No Stridor. Chest: Clear to auscultation bilaterally. No wheezes or rhonchi. No increased work of breathing. Heart: regular rate and rhythm. Abdomen: Soft nontender, nondistended without rebound guarding or rigidity. Extremities: No cyanosis clubbing. No calf tenderness or assymetry. 1+ bilateral lower extremity edema. Spine/Back. Non tender to palpation. No CVA tenderness Skin: Good turgor without rashes. Neurologic exam: Cranial nerves two through 12 are intact. Motor and sensation are intact and symmetrical throughout. Medical Decision & Procedures ER Provider Diagnostic Interpretation: X-ray results as stated below per interpretation by me and the radiologist: SINGLE VIEW CHEST CLINICAL HISTORY: Atypical chest pain. FINDINGS: An AP, portable, upright chest radiograph is obtained. No prior studies are available for comparison at the time of dictation. The examination is degraded by portable technique and apical lordotic positioning. The heart is enlarged and there is pulmonary basilar congestion. There is elevation right hemidiaphragm and bibasilar atelectasis. No airspace consolidation is seen typical for pneumonia and there is no large pleural effusion. No pneumothorax is seen. The bony thorax is grossly intact. IMPRESSION: Cardiomegaly with evidence of mild congestive failure. Electronically signed by: Raffy Gleason M.D. 08/11/2016 6:12 PM Dictated Date/Time: 08/11/2016 6:12 PM ULTRASOUND BILATERAL LOWER EXTREMITY VENOUS CLINICAL HISTORY: Lower extremity edema. COMPARISON STUDY: No priors. TECHNIQUE: Real-time, grayscale, and color Doppler sonography of the deep veins of the right and left lower extremity was performed from the inguinal crease to the calf. Compression and augmentation were utilized. FINDINGS: There is no sonographic evidence of deep venous thrombosis identified in the right or left lower extremity. The common femoral, superficial femoral, and popliteal veins are patent and normally compressible bilaterally. The greater saphenous vein and the profunda femoris vein at the junction with the common femoral vein are clear in both legs. The visualized calf veins are patent bilaterally. IMPRESSION: There is no sonographic evidence of deep venous thrombosis identified in the right or left lower extremity. Electronically signed by: Raffy Gleason M.D. 08/11/2016 8:52 PM Dictated Date/Time: 08/11/2016 8:[address] ANGIOGRAM OF THE CHEST CLINICAL HISTORY: Dyspnea. Leg swelling. COMPARISON STUDY: Chest x-ray dated 08/11/2016. TECHNIQUE: Following the IV administration of 94 cc of Optiray 320, CT angiogram of the chest was performed from the upper abdomen to the thoracic inlet utilizing the pulmonary embolus protocol. Images are reviewed in the axial, sagittal, and coronal planes. 3-D MIPS images are created and assessed. IV contrast was administered without complication. The examination is moderately degraded by motion artifact. CT DOSE: 776.79 mGy.cm FINDINGS: Thyroid: Imaged portions of the thyroid gland are normal in size and attenuation. Thoracic aorta: The thoracic aorta is normal in caliber and demonstrates standard 3-vessel arch anatomy. No dissection is seen. Pulmonary vasculature: The pulmonary trunk is dilated, measuring 3.5 cm in diameter. This suggests pulmonary artery hypertension. There are no filling defects identified in main, lobar, or proximal segmental pulmonary branches to suggest pulmonary embolus. Evaluation of the peripheral vessels is degraded by motion artifact. Heart: The heart is enlarged and without pericardial effusion. There are coronary artery calcifications. Lungs and pleural spaces: Evaluation of the lung parenchyma is degraded by motion artifact. There is elevation of the right hemidiaphragm with atelectasis at the right lung base. No airspace consolidation is seen typical for pneumonia and there is no pleural effusion. The trachea and central airways are clear. Mediastinum: There is no mediastinal lymphadenopathy. Zari: Clear. Axillae: There is no axillary lymphadenopathy. Upper abdomen: The liver is enlarged and steatotic. There is nodularity of the surface contour suggesting early change of cirrhosis. A tiny hiatal hernia is identified. Skeletal structures: No lytic or blastic bony lesions are seen. IMPRESSION: 1. Motion degraded examination. 2. There is no evidence of pulmonary embolus in the main, lobar, or proximal segmental pulmonary arteries. 3. There is no airspace consolidation typical for pneumonia or pleural effusion. 4. Cardiomegaly with evidence of pulmonary artery hypertension. 5. Hepatomegaly and hepatic steatosis. Nodularity of the hepatic surface contour suggests early change of cirrhosis. Electronically signed by: Raffy Gleason M.D. 08/11/2016 6:38 PM Dictated Date/Time: 08/11/2016 6:33 PM Laboratory Results Test 08/11/16 17:35 08/11/16 17:40 08/11/16 17:43 08/11/16 18:23 Magnesium Level 2.0 mg/dl (1.8-2.4) Total Bilirubin 0.6 mg/dl (0.2-1) Direct Bilirubin 0.1 mg/dl (0-0.2) Aspartate Amino Transf (AST/SGOT) 23 U/L (15-37) Alanine Aminotransferase (ALT/SGPT) 43 U/L (12-78) Alkaline Phosphatase 99 U/L (45-117) Total Creatine Kinase 71 U/L (39-308) Creatine Kinase MB 1.9 ng/ml (0.5-3.6) Creatine Kinase MB Ratio 2.7 (0-3.0) Total Protein 7.5 gm/dl (6.4-8.2) Albumin 4.0 gm/dl (3.4-5.0) Lipase 130 U/L (73-393) Thyroid Stimulating Hormone (TSH) 2.880 uIu/ml (0.300-4.500) Bedside Troponin I 0.020 ng/ml (0-0.045) WW-Ldf-E-Type Natriuretic Peptide 454 pg/ml (0-900) Bedside Hemoglobin 19.7 g/dl (14.0-18.0) Bedside Hematocrit 58 % (42-52) Bedside Sodium 136 mEq/L (135-144) Bedside Potassium 4.6 mEq/L (3.3-5.0) Bedside Chloride 92 mEq/L (101-112) Bedside Total CO2 33 mEq/l (24-31) Bedside Blood Urea Nitrogen 21 mg/dl (7-18) Bedside Creatinine 0.9 mg/dl (0.6-1.3) Bedside Glucose (other) 102 mg/dl (70-99) Bedside Ionized Calcium (Salma) 1.16 mmol/l (1.12-1.32) Prothrombin Time 10.6 SECONDS (9.0-12.0) Prothromb Time International Ratio 1.0 (0.9-1.1) Activated Partial Thromboplast Time 26.8 SECONDS (21.0-31.0) Partial Thromboplastin Ratio 1.0 Laboratory studies as stated above per my review. Medications Administered Medications (Trade) Dose Ordered Sig/Colin Route Start Time Stop Time Status Last Admin Dose Admin Aspirin (Aspirin Chew) 324 mg NOW STAT PO 08/11/16 18:52 08/11/16 18:53 DC 08/11/16 19:03 324 MG ECG Indication: SOB/dyspnea Rate (beats per minute): 98 Rhythm: normal sinus Findings: Q waves (Inferior), other (LVH) Comparison ECG Date: 06-Apr-2000 Change: LVH is now present. ED Course 1722: Past medical records reviewed. The patient was evaluated in room C8, and a complete history and physical examination were performed. 1849: Upon reevaluation, the patient is resting comfortably. I discussed the results and treatment plan with the patient. He verbalized agreement of the treatment plan. The patient will be evaluated for further management. 185: Aspirin 324 mg PO. 185: I discussed the patient's [facility] The patient will be evaluated for further management. Medical Decision Differential diagnoses: CHF, PE, arrhythmia, acute coronary syndrome, anemia, electrolyte or metabolic abnormality. Medication reconciliation: I have personally reviewed his medication list This patient comes in as described above. He was sent over by Dr. Sherman his corporate relations director after he was noted have a dilated RV. He was concerned that he could have a PE or an RV infarct. The patient has had shortness of breath for about 2 or 3 weeks now. He looks well on exam. He does have peripheral edema. IV access established, EKG and multiple blood testing was obtained. I did do chest CT there is no evidence of PE. His EKG does not show any evidence to suggest acute STEMI. His cardiac enzymes are not elevated. I do think that he has CHF and does need to be admitted for further cardiac workup and evaluation as this is a new finding as of a couple weeks ago. I did consult Dr. Taylor, who saw the patient the ER. The patient did receive an aspirin as well and the ER will be admitted for further treatment and evaluation. Consults Time Called: 1850 Consulting Physician: Dr. Cheung [facility] Hospitalist Returned Call: [phone] I discussed the patient's case with him. The patient will be evaluated for further management. Impression Primary Impression: CHF (congestive heart failure) Additional Impressions: Edema of both legs Shortness of breath Scribe Attestation The scribe's documentation has been prepared under my direction and personally reviewed by me in its entirety. I confirm that the note above accurately reflects all work, treatment, procedures, and medical decision making performed by me. Departure Information Dispostion Being Evaluated By Hospitalist Problem Qualifiers
[2016-08-13 07:19] LABS: BUN/CREATININE RATIO 18.4 (10-20); CALCIUM 9.1 mg/dl (8.5-10.1); CREATININE 0.86 mg/dl (0.60-1.40); POTASSIUM 4.7 mmol/L (3.5-5.1)
[2016-08-13] MEDS: FUROSEMIDE 40 MG TAB PO SCH (08:09)
[2016-08-13] MEDS: METOPROLOL SUCC 25MG EXT REL TAB PO SCH (08:09)
[2016-08-13] MEDS: MULTIVITAMIN TAB PO SCH (08:09)
[2016-08-13] MEDS: ASPIRIN 81 MG ECTAB PO SCH (08:09)
[2016-08-13] MEDS: NICOTINE 21 MG/24 HR TDSY TD SCH (08:10)
[2016-08-13] MEDS ORDERED: LOSARTAN POTASSIUM 25 MG TAB PO SCH (09:00)
--- NOTE | 2016-08-13 09:50 | Cardiology Follow-Up ---
Subjective General Date of Service: August 13, 2016. Chief Complaint: RV failure Pt evaluation today including: conversation w/ patient, physical exam, chart review, lab review, review of studies, review of inpatient medication list History of Present Illness Patient seen and examined. Notes difficulty tolerating BiPAP last night Remains bearded. Improved fluid retention, lower extremity peripheral edema. + Cough. + Expiratory wheezing. Improved tremor with the use of the nicotine replacement. Denies chest pain or palpitations. Telemetry: Sinus, sinus tachycardia. PVC's in singles. No runs. No bradyarrhythmias or pauses. Allergies Coded Allergies: No Known Allergies (Unverified , 12/22/09) Social History Smoking Status: Former Smoker Hx Tobacco Use In Past Year?: Yes Hx Alcohol Use - Type And Amou: Yes (beer-3/day) Hx Substance Use - Type And Am: No Problem List Medical Problems: (1) CHF (congestive heart failure) Status: Chronic (2) Edema of both legs Status: Acute (3) Shortness of breath Status: Acute Physical Exam Vital Signs Last Vital Signs Documentation Date Time Temp Pulse Resp B/P Pulse Ox O2 Delivery O2 Flow Rate FiO2 08/13/16 08:00 Nasal Cannula 4.0 08/13/16 04:00 91 08/13/16 03:44 37.7 104 20 142/76 Physical Exam Constitutional: General Apperance: overweight Level of Distress: NAD Psychiatric: Mental Status: active & alert Orientation: to time, to place, to person Memory: recent memory normal, remote memory normal Head: normocephalic, atraumatic Eyes: Pupils: PERRLA Neck: pertinent finding (Normal JVP. No HJR) Lungs: Respiratory effort: no dyspnea Auscultation: no rales/crackles, no rhonchi, deminished air movement, decreased breath sounds, expiratory wheezing Cardiovascular: Heart Auscultation: normal S1, normal S2, no murmurs, no rubs, tachycardia ( 100 bpm) Peripheral Pulses: Carotid Pulse: normal on the left, normal on the right Radial Pulse: normal on the left, normal on the right Dorsalis Pedis Pulse: decreased on the left, decreased on the right Abdomen: Bowel Sounds: normal Inspection & Palpation: soft, non-distended, no masses Musculoskeletal: normal Extremities: no cyanosis, no clubbing, edema (1+ edema) Neurologic: Cranial Nerves: grossly intact Assessment and Plan Assessment and Plan Respiratory failure with hypercapnia, hypoxemia, probable secondary polycythemia , right ventricular dysfunction and pulmonary hypertension appearing to be secondary to marked obesity hypoventilation syndrome and significant underlying chronic obstructive pulmonary disease, chronic tobacco abuse. Doubt subacute isolated right ventricular infarction. RECOMMENDATIONS: Shave facial hair BiPAP therapy Continue furosemide Titrate Toprol and Losartan for heart rate and blood pressure control. ASA 81 mg/day added, use and risks explained. ? ability to add statin given CT finding suggestive of cirrhosis. Will await outpatient GI input. Tobacco cessation advised. HCTZ discontinued. Recommend outpatient cardiology follow-up, consideration to be made for full right and left heart catheterization as well as routine follow-up of the congenitally bicuspid aortic valve. DVT prophylaxis, Lovenox. CARDIOLOGY ATTENDING ADDENDUM: The patient was seen and personally examined. Agree with Ricardo Rand PA-C's findings and plans as documented above with additions as noted below. Patient states he tolerated CPAP for a few hours last night. He notes having a better seal with the mask since his figueroa was shaved. Exam: mild R > L LE edema, no murmurs Impression: as above. Plan. as above. Laboratory Results Last 24 Hours Test 08/13/16 05:59 Sodium Level 138 mmol/L Potassium Level 4.7 mmol/L Chloride Level 97 mmol/L Carbon Dioxide Level 38 mmol/L Anion Gap 3.0 mmol/L Blood Urea Nitrogen 16 mg/dl Creatinine 0.86 mg/dl Est Creatinine Clear Calc Drug Dose 145.2 ml/min Estimated GFR () 114.7 Estimated GFR (Non- 99.0 BUN/Creatinine Ratio 18.4 Random Glucose 106 mg/dl Calcium Level 9.1 mg/dl
--- NOTE | 2016-08-13 10:11 | PULMONARY PROGRESS NOTE ---
DATE: 08/13/2016 DATE: 08/13/2016. SUBJECTIVE: The patient is comfortable this morning. He states he has difficulty with wearing BIPAP at night, only worked for about an hour but did tolerate it for an hour. I discussed using the BiPAP for a longer period of time each time he sleeps. He understands. He states no one showed him how to use it. I showed him how easy it was just to put the head gear on and off. I showed him where the quick removal clip was on the left hand side. He seems to understand. He states with the diuresis he is feeling improved. PHYSICAL EXAMINATION: VITAL SIGNS: Stable and he is afebrile. Respiratory rate is 20, blood pressure 142/76, oxygen saturation is 91-93% on 4 liters. His weight is down from 144.6 to 142 kilograms. HEAD, EYES, EARS, NOSE, AND THROAT: Posterior pharynx shows a small posterior pharyngeal opening with a large tongue, low lying soft palate, normal mandible and TM joints. HEART: Regular rate and rhythm. LUNGS: Revealed decreased breath sounds. ABDOMEN: Soft and obese. No tenderness noted. EXTREMITIES: He has less edema of his lower extremities. One can now visualize the tibia bilaterally. LABORATORY DATA: CO2 on the electrolytes is 38 with a BUN of 16, creatinine of 0.86. TSH is 2.9. IMPRESSIONS: 1. Respiratory failure secondary to hypoventilation syndrome, probable obstructive sleep apnea, chronic obstructive lung disease. 2. Chronic obstructive pulmonary disease with exacerbation. RECOMMENDATIONS: 1. At this point I would encourage the patient to try to use the BiPAP. It could be placed on him during the daytime so he can get accustomed to use it and perhaps from 9 at night to about 6 in the morning every day, or at least when he is sleeping. 2. Continue with the diuresis and the inhalers. Overall he is stable.
[2016-08-13] MEDS ORDERED: METOPROLOL SUCC 25MG EXT REL TAB PO ONE (10:30)
[2016-08-13] MEDS ORDERED: LOSARTAN POTASSIUM 25 MG TAB PO ONE (10:30)
--- NOTE | 2016-08-13 21:02 | Progress Note ---
Medicine Progress Note Date & Time of Visit: August 13, 2016 at 17:40 . Subjective Less SOB. No chest pain. No nausea or vomiting. Good diuresis. Having some difficulty tolerating BiPAP. . Objective Last 8 Hrs Date Time Temp Pulse Resp B/P Pulse Ox O2 Delivery O2 Flow Rate FiO2 08/13/16 20:11 37.1 94 18 125/80 91 Nasal Cannula 4.0 08/13/16 16:00 Nasal Cannula 4.0 08/13/16 15:37 37.2 90 20 123/80 93 Nasal Cannula 4.0 Physical Exam: General-no acute distress Eyes- anicteric Neck- + JVD Lungs- diffuse mild wheezing Heart- RRR, increased P2 Abdomen- obese, + BS, soft, nontender Extremities- 2-3+ pretibial edema; no calf tenderness Neuro- alert . Laboratory Results: Last 24 Hours Test 08/13/16 05:59 Sodium Level 138 mmol/L Potassium Level 4.7 mmol/L Chloride Level 97 mmol/L Carbon Dioxide Level 38 mmol/L Anion Gap 3.0 mmol/L Blood Urea Nitrogen 16 mg/dl Creatinine 0.86 mg/dl Est Creatinine Clear Calc Drug Dose 145.2 ml/min Estimated GFR () 114.7 Estimated GFR (Non- 99.0 BUN/Creatinine Ratio 18.4 Random Glucose 106 mg/dl Calcium Level 9.1 mg/dl Assessment & Plan CHF Echo performed in clinic demonstrated dilated RV, pulmonary hypertension, normal LVEF, diastolic dysfunction. Primarily acute right ventricular heart failure mixed with left ventricular diastolic failure. IV diuretics. Pulmonary management as discussed below. ACUTE HYPERCAPNIC AND HYPOXIC RESPIRATORY FAILURE Probably combination of COPD and obesity hypoventilation syndrome. CTA chest negative for pulmonary embolism. Pulmonary Medicine consulted. Nebs ordered. BiPAP recommended; not well-tolerated, but patient trying to comply. POSSIBLE CIRRHOSIS Incidental finding on CTA chest was hepatomegaly, steatosis, nodularity of hepatic surface suggesting early cirrhosis. Moderate drinking in past (3 beers a night), but not at this time. May have fatty liver disease. Will need GI f/u as outpatient. POLYCYTHEMIA Hgb on admission = 18.1. Polycythemia probably due to chronic hypoxia. Follow. VTE PROPHYLAXIS SQ enoxaparin. Ambulate. DISPOSITION Expected discharge to home. Family Medicine follow-up with Dr. Christianson. . Current Inpatient Medications: Current Inpatient Medications Medications (Trade) Dose Ordered Sig/Colin Route Start Time Stop Time Status Last Admin Dose Admin Ioversol (Optiray 320) 100 ml UD PRN IV 08/11/16 17:45 08/15/16 17:44 Enoxaparin Sodium (Lovenox Inj) 40 mg Q24H SC 08/11/16 22:00 09/10/16 21:59 08/12/16 20:06 40 MG Acetaminophen (Tylenol Tab) 650 mg Q4H PRN PO 08/11/16 20:00 09/10/16 19:59 Nitroglycerin (Nitrostat Tab) 0.4 mg UD PRN SL 08/11/16 20:00 09/10/16 19:59 Nicotine (Nicoderm Cq 21MG Patch) 1 patch QAM TD 08/12/16 09:00 09/11/16 08:59 08/13/16 08:10 1 PATCH Miscellaneous (Remove Nicoderm Patch) 1 ea HS N/A 08/12/16 21:00 09/11/16 20:59 08/12/16 20:05 1 EA Furosemide (Lasix Tab) 40 mg DAILY PO 08/12/16 09:00 09/11/16 08:59 08/13/16 08:09 40 MG Multivitamins (Multivitamin Tab) 1 tab QAM PO 08/12/16 09:00 09/11/16 08:59 08/13/16 08:09 1 TAB Tramadol HCl (Ultram Tab) 50 mg Q6H PRN PO 08/11/16 20:00 09/10/16 19:59 Ipratropium Holloway (Atrovent 0.02% 0.5MG/2.5ML Neb) 0.5 mg Q4H PRN INH 08/11/16 21:30 09/10/16 21:29 08/12/16 09:23 0.5 MG Levalbuterol (Xopenex 1.25MG/ 0.5ML Neb) 1.25 mg Q4H PRN INH 08/11/16 21:30 09/10/16 21:29 08/12/16 09:23 1.25 MG Aspirin (Ecotrin Tab) 81 mg QAM PO 08/12/16 11:30 09/11/16 11:29 08/13/16 08:09 81 MG Metoprolol Succinate (Toprol Xl Tab) 50 mg QAM PO 08/14/16 09:00 09/13/16 08:59 Losartan Potassium (coZAAR TAB) 50 mg QAM PO 08/14/16 09:00 09/13/16 08:59
[2016-08-13] MEDS: ENOXAPARIN 40 MG/0.4 ML SYR SC SCH (21:09)
[2016-08-14] VITALS (10 sets, daily range): BP systolic 118–132; BP diastolic 66–77; PULSE 70–95; TEMP 36.5–37.3; O2SAT 77–94
[2016-08-14 07:40] LABS: BUN/CREATININE RATIO 17.3 (10-20); CALCIUM 9.1 mg/dl (8.5-10.1); CREATININE 0.9 mg/dl (0.60-1.40)
[2016-08-14] MEDS: ASPIRIN 81 MG ECTAB PO SCH (08:15)
[2016-08-14] MEDS: MULTIVITAMIN TAB PO SCH (08:16)
[2016-08-14] MEDS: NICOTINE 21 MG/24 HR TDSY TD SCH (08:16)
[2016-08-14] MEDS: FUROSEMIDE 40 MG TAB PO SCH (08:16)
[2016-08-14] MEDS: LOSARTAN POTASSIUM 50 MG TAB PO SCH (08:16)
[2016-08-14] MEDS: METOPROLOL SUCC 50MG EXT REL TAB PO SCH (08:16)
--- NOTE | 2016-08-14 08:42 | PULMONARY PROGRESS NOTE ---
DATE: 08/14/2016 DATE: 08/14/2016. SUBJECTIVE: The patient is comfortable this morning, states he feels 100% better than he did at the time of admission. He is able to use the BiPAP last night for several hours. He did shave his figueroa and that has allowed better placement and fitting of the mask. He was out of bed yesterday, has been able to ambulate in his room without difficulty. OBJECTIVE: VITAL SIGNS: Stable and he is afebrile. Oxygen saturation 93% on 4 liters. I\T\O is 1000 in, unknown amount out. Weight is down to 140.9 kilograms from 144.6 kilograms. NECK: Posterior pharynx shows no evidence of thrush. No neck vein distention or HJR. HEART: Regular rate and rhythm, second heart sound normal. LUNGS: Clear today. ABDOMEN: Soft, there is no tenderness. He has considerably less edema. He does have asterixis. IMPRESSION: 1. Respiratory failure secondary to hypoventilation syndrome, chronic obstructive lung disease. 2. Chronic obstructive pulmonary disease. RECOMMENDATIONS: 1. Wear the BiPAP each time he sleeps. He should be sent home with BiPAP since he is improved. 2. Follow up with Dr. Field or Dr. Dickinson a week to 10 days after discharge. He should be scheduled for a sleep study as well and that can be done with BiPAP if his insurance will allow that to adjust the settings appropriately. 3. Continue weight reduction and good diuresis. We discussed avoiding cigarette smoking at all costs and he understands. Overall he is stable today.
[2016-08-14] MEDS ORDERED: LOSARTAN POTASSIUM 25 MG TAB PO SCH (09:00)
[2016-08-14] MEDS ORDERED: FUROSEMIDE INJ 40 MG in SYRINGE 0 ML IV ONE (18:30)
--- NOTE | 2016-08-14 19:28 | Progress Note ---
Medicine Progress Note Date & Time of Visit: August 14, 2016 at 10:20 . Subjective No fever. Less SOB. Still adapting to BiPAP. Rare cough. No chest pain. No nausea or vomiting. . Objective Last 8 Hrs Date Time Temp Pulse Resp B/P Pulse Ox O2 Delivery O2 Flow Rate FiO2 08/14/16 16:00 91 Nasal Cannula 2.0 Humidified Oxygen 08/14/16 15:30 36.7 86 20 132/77 91 Nasal Cannula 2.0 Humidified Oxygen 08/14/16 12:00 Nasal Cannula 2.0 08/14/16 11:38 37.3 91 18 118/70 89 2.0 Physical Exam: General-no acute distress Eyes- anicteric Neck- + JVD Lungs- diffuse mild wheezing Heart- RRR, increased P2 Abdomen- obese, + BS, soft, nontender Extremities- 3+ pretibial edema; no calf tenderness Neuro- alert . Laboratory Results: Last 24 Hours Test 08/14/16 06:15 Sodium Level 138 mmol/L Potassium Level 5.0 mmol/L Chloride Level 95 mmol/L Carbon Dioxide Level 41 mmol/L Anion Gap 2.0 mmol/L Blood Urea Nitrogen 16 mg/dl Creatinine 0.90 mg/dl Est Creatinine Clear Calc Drug Dose 138.2 ml/min Estimated GFR () 112.6 Estimated GFR (Non- 97.2 BUN/Creatinine Ratio 17.3 Random Glucose 104 mg/dl Calcium Level 9.1 mg/dl Assessment & Plan CHF Echo performed in clinic demonstrated dilated RV, pulmonary hypertension, normal LVEF, diastolic dysfunction. Primarily acute right ventricular heart failure mixed with left ventricular diastolic failure. IV diuretics. Pulmonary management as discussed below. ACUTE HYPERCAPNIC AND HYPOXIC RESPIRATORY FAILURE Probably combination of COPD, sleep apnea, obesity hypoventilation syndrome. CTA chest negative for pulmonary embolism. Pulmonary Medicine consulted. Nebs ordered. Continue BiPAP as tolerated. Outpatient sleep study recommended. POSSIBLE CIRRHOSIS Incidental finding on CTA chest was hepatomegaly, steatosis, nodularity of hepatic surface suggesting early cirrhosis. Moderate drinking in past (3 beers a night), but not at this time. May have fatty liver disease. Will need GI f/u as outpatient. POLYCYTHEMIA Hgb on admission = 18.1. Polycythemia probably due to chronic hypoxia. Follow. VTE PROPHYLAXIS SQ enoxaparin. Ambulate. DISPOSITION Expected discharge to home. Family Medicine follow-up with Dr. Christianson. . Current Inpatient Medications: Current Inpatient Medications Medications (Trade) Dose Ordered Sig/Colin Route Start Time Stop Time Status Last Admin Dose Admin Ioversol (Optiray 320) 100 ml UD PRN IV 08/11/16 17:45 08/15/16 17:44 Enoxaparin Sodium (Lovenox Inj) 40 mg Q24H SC 08/11/16 22:00 09/10/16 21:59 08/13/16 21:09 40 MG Acetaminophen (Tylenol Tab) 650 mg Q4H PRN PO 08/11/16 20:00 09/10/16 19:59 Nitroglycerin (Nitrostat Tab) 0.4 mg UD PRN SL 08/11/16 20:00 09/10/16 19:59 Nicotine (Nicoderm Cq 21MG Patch) 1 patch QAM TD 08/12/16 09:00 09/11/16 08:59 08/14/16 08:16 1 PATCH Miscellaneous (Remove Nicoderm Patch) 1 ea HS N/A 08/12/16 21:00 09/11/16 20:59 08/13/16 21:08 1 EA Furosemide (Lasix Tab) 40 mg DAILY PO 08/12/16 09:00 09/11/16 08:59 08/14/16 08:16 40 MG Multivitamins (Multivitamin Tab) 1 tab QAM PO 08/12/16 09:00 09/11/16 08:59 08/14/16 08:16 1 TAB Tramadol HCl (Ultram Tab) 50 mg Q6H PRN PO 08/11/16 20:00 09/10/16 19:59 Ipratropium [place] (Atrovent 0.02% 0.5MG/2.5ML Neb) 0.5 mg Q4H PRN INH 08/11/16 21:30 09/10/16 21:29 08/12/16 09:23 0.5 MG Levalbuterol (Xopenex 1.25MG/ 0.5ML Neb) 1.25 mg Q4H PRN INH 08/11/16 21:30 09/10/16 21:29 08/12/16 09:23 1.25 MG Aspirin (Ecotrin Tab) 81 mg QAM PO 08/12/16 11:30 09/11/16 11:29 08/14/16 08:15 81 MG Metoprolol Succinate (Toprol Xl Tab) 50 mg QAM PO 08/14/16 09:00 09/13/16 08:59 08/14/16 08:16 50 MG Losartan Potassium 50 mg 50 mg QAM PO 08/14/16 09:00 09/13/16 08:59 08/14/16 08:16 50 MG Furosemide/Syringe (Lasix Inj/ Syringe) 4 ml @ 4 mls/min BID@0900,1500 IV 08/15/16 09:00 09/14/16 08:59
[2016-08-14] MEDS: ENOXAPARIN 40 MG/0.4 ML SYR SC SCH (22:07)
[2016-08-15 03:19] VITALS: BP 118/70; PULSE 81; TEMP 36.6; O2SAT 90
[2016-08-15 06:23] LABS: BASO % 0.4 %; BASO ABS # 0.03 K/uL (0-0.2); COMPLETE YES; EOS % 7.7 %; HEMATOCRIT 55.9 % (42-52); IG% 0.1 %; LYMPH % 27.1 %; MEAN CELL VOLUME 102.9 fL (80-100); MEAN CORPUSCULAR HEMOGLOBIN 33.5 pg (25-34); MEAN CORPUSCULAR HGB CONC 32.6 g/dl (32-36); MEAN PLATELET VOLUME 8.7 fL (7.4-10.4); MONO % 8.4 %; NEUT % 56.3 %; PLATELET COUNT 152 K/uL (130-400); RED BLOOD COUNT 5.43 M/uL (4.7-6.1); WHITE BLOOD COUNT 7.38 K/uL (4.8-10.8)
[2016-08-15 06:57] LABS: BUN/CREATININE RATIO 22.2 (10-20); CALCIUM 8.8 mg/dl (8.5-10.1); CREATININE 0.81 mg/dl (0.60-1.40); POTASSIUM 4.6 mmol/L (3.5-5.1)
[2016-08-15 07:24] VITALS: BP 119/87; PULSE 81; TEMP 37; O2SAT 94
[2016-08-15] MEDS: NICOTINE 21 MG/24 HR TDSY TD SCH (08:04)
[2016-08-15] MEDS: METOPROLOL SUCC 50MG EXT REL TAB PO SCH (08:05)
[2016-08-15] MEDS: LOSARTAN POTASSIUM 50 MG TAB PO SCH (08:05)
[2016-08-15] MEDS: FUROSEMIDE 40 MG TAB PO SCH (08:05)
[2016-08-15] MEDS: ASPIRIN 81 MG ECTAB PO SCH (08:05)
[2016-08-15] MEDS: MULTIVITAMIN TAB PO SCH (08:05)
[2016-08-15] MEDS: FUROSEMIDE INJ 40 MG in SYRINGE 0 ML IV SCH ×2 (08:06→15:53)
[2016-08-15 11:39] VITALS: BP 126/78; PULSE 91; TEMP 37.1; O2SAT 92
[2016-08-15 16:13] VITALS: BP 131/60; PULSE 92; TEMP 36.8; O2SAT 92
--- NOTE | 2016-08-15 18:25 | Progress Note ---
Medicine Progress Note Date & Time of Visit: August 15, 2016 at 13:30 . Subjective Gradually improving. Less SOB. Still having problems adapting to BiPAP. No chest pain. No nausea or vomiting. . Objective Last 8 Hrs Date Time Temp Pulse Resp B/P Pulse Ox O2 Delivery O2 Flow Rate FiO2 08/15/16 16:13 36.8 92 18 131/60 92 CPAP 08/15/16 16:00 Nasal Cannula 2.0 08/15/16 12:00 Nasal Cannula 2.0 08/15/16 11:39 37.1 91 20 126/78 92 Nasal Cannula 2.0 Physical Exam: General- no distress Eyes- anicteric Neck- + JVD Lungs- diffuse mild wheezing Heart- RRR, increased P2 Abdomen- obese, + BS, soft, nontender Extremities- 2+ pretibial edema; no calf tenderness Neuro- alert . Laboratory Results: Last 24 Hours Test 08/15/16 06:00 White Blood Count 7.38 K/uL Red Blood Count 5.43 M/uL Hemoglobin 18.2 g/dL Hematocrit 55.9 % Mean Corpuscular Volume 102.9 fL Mean Corpuscular Hemoglobin 33.5 pg Mean Corpuscular Hemoglobin Concent 32.6 g/dl Platelet Count 152 K/uL Mean Platelet Volume 8.7 fL Neutrophils (%) (Auto) 56.3 % Lymphocytes (%) (Auto) 27.1 % Monocytes (%) (Auto) 8.4 % Eosinophils (%) (Auto) 7.7 % Basophils (%) (Auto) 0.4 % Neutrophils # (Auto) 4.15 K/uL Lymphocytes # (Auto) 2.00 K/uL Monocytes # (Auto) 0.62 K/uL Eosinophils # (Auto) 0.57 K/uL Basophils # (Auto) 0.03 K/uL RDW Standard Deviation 54.7 fL RDW Coefficient of Variation 14.3 % Immature Granulocyte % (Auto) 0.1 % Immature Granulocyte # (Auto) 0.01 K/uL Sodium Level 139 mmol/L Potassium Level 4.6 mmol/L Chloride Level 96 mmol/L Carbon Dioxide Level 40 mmol/L Anion Gap 2.0 mmol/L Blood Urea Nitrogen 18 mg/dl Creatinine 0.81 mg/dl Est Creatinine Clear Calc Drug Dose 153.2 ml/min Estimated GFR () 117.6 Estimated GFR (Non- 101.5 BUN/Creatinine Ratio 22.2 Random Glucose 119 mg/dl Calcium Level 8.8 mg/dl Assessment & Plan CHF Echo performed in clinic demonstrated dilated RV, pulmonary hypertension, normal LVEF, diastolic dysfunction. Primarily acute right ventricular heart failure mixed with left ventricular diastolic failure. Continue IV diuretics. Pulmonary management as discussed below. ACUTE HYPERCAPNIC AND HYPOXIC RESPIRATORY FAILURE Probably combination of COPD, sleep apnea, obesity hypoventilation syndrome. CTA chest negative for pulmonary embolism. Pulmonary Medicine consulted. Nebs ordered. Continue BiPAP as tolerated- will need at time of discharge. Outpatient sleep study recommended. POSSIBLE CIRRHOSIS Incidental finding on CTA chest was hepatomegaly, steatosis, nodularity of hepatic surface suggesting early cirrhosis. Moderate drinking in past (3 beers a night), but not at this time. May have fatty liver disease. Will need GI f/u as outpatient. POLYCYTHEMIA Hgb on admission = 18.1. Polycythemia probably due to chronic hypoxia. Follow. VTE PROPHYLAXIS SQ enoxaparin. Ambulate. DISPOSITION Expected discharge to home. Family Medicine follow-up with Dr. Christianson. Pulmonary follow-up with MIR[facility]. . Current Inpatient Medications: Current Inpatient Medications Medications (Trade) Dose Ordered Sig/Colin Route Start Time Stop Time Status Last Admin Dose Admin Enoxaparin Sodium (Lovenox Inj) 40 mg Q24H SC 08/11/16 22:00 09/10/16 21:59 08/14/16 22:07 40 MG Acetaminophen (Tylenol Tab) 650 mg Q4H PRN PO 08/11/16 20:00 09/10/16 19:59 Nitroglycerin (Nitrostat Tab) 0.4 mg UD PRN SL 08/11/16 20:00 09/10/16 19:59 Nicotine (Nicoderm Cq 21MG Patch) 1 patch QAM TD 08/12/16 09:00 09/11/16 08:59 08/14/16 08:16 1 PATCH Miscellaneous (Remove Nicoderm Patch) 1 ea HS N/A 08/12/16 21:00 09/11/16 20:59 08/14/16 20:24 1 EA Furosemide (Lasix Tab) 40 mg DAILY PO 08/12/16 09:00 09/11/16 08:59 08/14/16 08:16 40 MG Multivitamins (Multivitamin Tab) 1 tab QAM PO 08/12/16 09:00 09/11/16 08:59 08/15/16 08:05 1 TAB Tramadol HCl (Ultram Tab) 50 mg Q6H PRN PO 08/11/16 20:00 09/10/16 19:59 Ipratropium [place] (Atrovent 0.02% 0.5MG/2.5ML Neb) 0.5 mg Q4H PRN INH 08/11/16 21:30 09/10/16 21:29 08/12/16 09:23 0.5 MG Levalbuterol (Xopenex 1.25MG/ 0.5ML Neb) 1.25 mg Q4H PRN INH 08/11/16 21:30 09/10/16 21:29 08/12/16 09:23 1.25 MG Aspirin (Ecotrin Tab) 81 mg QAM PO 08/12/16 11:30 09/11/16 11:29 08/15/16 08:05 81 MG Metoprolol Succinate (Toprol Xl Tab) 50 mg QAM PO 08/14/16 09:00 09/13/16 08:59 08/15/16 08:05 50 MG Losartan Potassium 50 mg 50 mg QAM PO 08/14/16 09:00 09/13/16 08:59 08/15/16 08:05 50 MG Furosemide/Syringe (Lasix Inj/ Syringe) 4 ml @ 4 mls/min BID@0900,1500 IV 08/15/16 09:00 09/14/16 08:59 08/15/16 15:53 4 MLS/MIN
[2016-08-15 19:59] VITALS: BP 123/75; PULSE 95; TEMP 37.4; O2SAT 92
[2016-08-15] MEDS: ENOXAPARIN 40 MG/0.4 ML SYR SC SCH (22:27)
[2016-08-15 23:58] VITALS: BP 132/78; PULSE 89; TEMP 36.7; O2SAT 91
[2016-08-16 03:45] VITALS: BP 143/76; PULSE 86; TEMP 36.9; O2SAT 91
[2016-08-16 07:04] LABS: CREATININE 0.79 mg/dl (0.60-1.40)
[2016-08-16 07:05] LABS: BUN/CREATININE RATIO 23.8 (10-20); CALCIUM 8.7 mg/dl (8.5-10.1); POTASSIUM 4.2 mmol/L (3.5-5.1)
[2016-08-16] MEDS: METOPROLOL SUCC 50MG EXT REL TAB PO SCH (07:28)
[2016-08-16] MEDS: ASPIRIN 81 MG ECTAB PO SCH (07:28)
[2016-08-16] MEDS: NICOTINE 21 MG/24 HR TDSY TD SCH (07:29)
[2016-08-16] MEDS: MULTIVITAMIN TAB PO SCH (07:29)
[2016-08-16] MEDS: LOSARTAN POTASSIUM 50 MG TAB PO SCH (07:29)
[2016-08-16] MEDS: FUROSEMIDE 40 MG TAB PO SCH (07:29)
[2016-08-16 07:52] VITALS: BP 129/77; PULSE 84; TEMP 37.1; O2SAT 92
[2016-08-16] MEDS ORDERED: SODIUM CHLORIDE 0.65% NA SOLN 45 ML (OCEAN) PRN (08:00)
[2016-08-16] MEDS ORDERED: NURSING DECISION MEDICATION ORDER SCH (08:00)
[2016-08-16] MEDS: FUROSEMIDE INJ 40 MG in SYRINGE 0 ML IV SCH (08:31)
[2016-08-16 12:00] VITALS: BP 108/78; PULSE 83; TEMP 37.2; O2SAT 92
--- NOTE | 2016-08-16 14:01 | PULMONARY PROGRESS NOTE ---
DATE: 08/16/2016 TIME: 1:25 p.m. SUBJECTIVE: The patient is feeling much better. He is less short of breath. He is trying to adapt to wearing BiPAP at night. Apparently, he wears it for about 3 hours, then takes it off for a while and then puts it back on. He does find it difficult to sleep with it. He feels that his edema is continuing to get better. His weight continues to decrease. The patient discussed that, sometimes he feels like it is hard to find his words. He was wondering if this was something permanent. The patient did have his pass away about 5 months ago. He has been going through a very stressful situation and now he is ill. I expressed to him that I suspect it was all of these issues that perhaps had him feeling it was hard to think clearly. It could also be that his blood gas abnormalities have played some sort of a role. OBJECTIVE: GENERAL: The patient was comfortable at rest. Apparently, he has been walking around the hallways without too much difficulty. VITAL SIGNS: Temperature is 37.2. HEENT: Pupils were reactive. Mouth exam was unremarkable. NECK: Palpation of the neck reveals no lymph nodes. CHEST: Normal development. HEART: Heart rate was 96 per minute. The rhythm was regular. Blood pressure was 108/78. LUNGS: Lung drake revealed diminished breath sounds. No wheezes, rales or rhonchi were heard. Oxygen saturation on 2 liters was 92%. The patient's weight today is 139.1 kilograms, which reflects a 5.5 kilograms weight loss compared with 08/11/2016. ABDOMEN: Soft. Bowel sounds were present. There was no tenderness to palpation. EXTREMITIES: Reveals +2 edema on the right and +1 edema on the left. LABORATORIES: Electrolytes today show sodium of 139, potassium 4.2, chloride 96 and bicarbonate 40. BUN was 19 with a creatinine of 0.79. It is notable that his last CBC on 08/15/2016 showed a hemoglobin elevated at 18.2. This would be suspicious for secondary polycythemia. IMPRESSION: 1. Respiratory failure with hypoxia and hypercarbia. 2. Chronic obstructive pulmonary disease. 3. Probable obstructive sleep apnea. 4. Secondary polycythemia. COMMENTS AND RECOMMENDATIONS: The patient seems to be doing well. We would suggest that, if possible, he get a BiPAP for discharge; this would require an overnight pulse oximetry study to be done on 2 liters. The patient could be considered a candidate for pulmonary rehabilitation. He should have pulmonary function tests following discharge. It sounds like; if he had them done it was many years ago. Obviously, spirometry could give guidance as to how much aggression we need with bronchodilator therapy. I did speak with the patient about the need to totally abstain from smoking. He has done well with Chantix in the past. However, he is depressed now apparently related to his 's passing, so perhaps that is not a good choice for him. He seems interested in getting nicotine patches at home even though he feels he does not need them while in the hospital.
[2016-08-16] MEDS ORDERED: FUROSEMIDE INJ 40 MG in SYRINGE 0 ML IV ONE (15:00)
[2016-08-16 15:35] VITALS: BP 148/81; PULSE 95; TEMP 36.7; O2SAT 93
[2016-08-16 19:01] VITALS: BP 134/78; PULSE 90; TEMP 37.1; O2SAT 92
[2016-08-16] MEDS: ENOXAPARIN 40 MG/0.4 ML SYR SC SCH (21:03)
--- NOTE | 2016-08-16 22:29 | Progress Note ---
Medicine Progress Note Date & Time of Visit: August 16, 2016 at 09:10 . Subjective Doing his best to use BiPAP, but can only tolerate it for short periods of time. No chest pain. No cough. Less SOB. Edema improved. Ambulating. . Objective Last 8 Hrs Date Time Temp Pulse Resp B/P Pulse Ox O2 Delivery O2 Flow Rate FiO2 08/16/16 20:00 Nasal Cannula 2.0 08/16/16 19:01 37.1 90 18 134/78 92 Nasal Cannula 2.0 08/16/16 16:00 Nasal Cannula 2.0 08/16/16 15:35 36.7 95 20 148/81 93 Nasal Cannula 2.0 Physical Exam: General- no distress Eyes- anicteric Neck- + JVD Lungs- minimal wheezing Heart- RRR, increased P2 Abdomen- obese, + BS, soft, nontender Extremities- 2+ pretibial edema; no calf tenderness Neuro- alert . Laboratory Results: Last 24 Hours Test 08/16/16 05:50 Sodium Level 139 mmol/L Potassium Level 4.2 mmol/L Chloride Level 96 mmol/L Carbon Dioxide Level 40 mmol/L Anion Gap 3.0 mmol/L Blood Urea Nitrogen 19 mg/dl Creatinine 0.79 mg/dl Est Creatinine Clear Calc Drug Dose 156.3 ml/min Estimated GFR () 118.8 Estimated GFR (Non- 102.5 BUN/Creatinine Ratio 23.8 Random Glucose 101 mg/dl Calcium Level 8.7 mg/dl Assessment & Plan CHF Echo performed in clinic demonstrated dilated RV, pulmonary hypertension, normal LVEF, diastolic dysfunction. Primarily acute right ventricular heart failure mixed with left ventricular diastolic failure. Receiving IV diuretics. Weight down 4.7 kg since admission. Pulmonary management as discussed below. ACUTE + CHORNIC HYPERCAPNIC AND HYPOXIC RESPIRATORY FAILURE Probably combination of COPD, sleep apnea, obesity hypoventilation syndrome. Echo in clinic showed pulmonary hypertension and RV systolic failure / cor pulmonale due to underlying respiratory disease. CTA chest negative for pulmonary embolism. Pulmonary Medicine consulted. Continue BiPAP as tolerated- will need at time of discharge. Outpatient sleep study and PFT's recommended. Smoking cessation discussed. POSSIBLE CIRRHOSIS Incidental finding on CTA chest was hepatomegaly, steatosis, nodularity of hepatic surface suggesting early cirrhosis. Moderate drinking in past (3 beers a night), but not at this time. May have fatty liver disease. Will need GI f/u as outpatient. POLYCYTHEMIA Hgb on admission = 18.1. Polycythemia probably due to chronic hypoxia. Follow. VTE PROPHYLAXIS SQ enoxaparin. Ambulate. DISPOSITION Expected discharge to home. Family Medicine follow-up with Dr. Christianson. Pulmonary follow-up with MIRZA. . Consultants: Cardiology Pulmonary . Procedures: CTA chest venous duplex lower extremities cardiac monitoring IV meds . Current Inpatient Medications: Current Inpatient Medications Medications (Trade) Dose Ordered Sig/Colin Route Start Time Stop Time Status Last Admin Dose Admin Enoxaparin Sodium (Lovenox Inj) 40 mg Q24H SC 08/11/16 22:00 09/10/16 21:59 08/16/16 21:03 40 MG Acetaminophen (Tylenol Tab) 650 mg Q4H PRN PO 08/11/16 20:00 09/10/16 19:59 Nitroglycerin (Nitrostat Tab) 0.4 mg UD PRN SL 08/11/16 20:00 09/10/16 19:59 Nicotine (Nicoderm Cq 21MG Patch) 1 patch QAM TD 08/12/16 09:00 09/11/16 08:59 08/14/16 08:16 1 PATCH Miscellaneous (Remove Nicoderm Patch) 1 ea HS N/A 08/12/16 21:00 09/11/16 20:59 08/14/16 20:24 1 EA Furosemide (Lasix Tab) 40 mg DAILY PO 08/12/16 09:00 09/11/16 08:59 08/16/16 07:29 40 MG Multivitamins (Multivitamin Tab) 1 tab QAM PO 08/12/16 09:00 09/11/16 08:59 08/16/16 07:29 1 TAB Tramadol HCl (Ultram Tab) 50 mg Q6H PRN PO 08/11/16 20:00 09/10/16 19:59 Ipratropium [place] (Atrovent 0.02% 0.5MG/2.5ML Neb) 0.5 mg Q4H PRN INH 08/11/16 21:30 09/10/16 21:29 08/12/16 09:23 0.5 MG Levalbuterol (Xopenex 1.25MG/ 0.5ML Neb) 1.25 mg Q4H PRN INH 08/11/16 21:30 09/10/16 21:29 08/12/16 09:23 1.25 MG Aspirin (Ecotrin Tab) 81 mg QAM PO 08/12/16 11:30 09/11/16 11:29 08/16/16 07:28 81 MG Metoprolol Succinate (Toprol Xl Tab) 50 mg QAM PO 08/14/16 09:00 09/13/16 08:59 08/16/16 07:28 50 MG Losartan Potassium (coZAAR TAB) 50 mg QAM PO 08/14/16 09:00 09/13/16 08:59 08/16/16 07:29 50 MG Sodium Chloride ([place] Nasal [place]) 1 sprays PRN PRN NA 08/16/16 08:00 09/15/16 07:59
[2016-08-16 23:19] VITALS: BP 135/74; PULSE 81; TEMP 36.7; O2SAT 96
[2016-08-17 03:50] VITALS: BP 126/86; PULSE 86; TEMP 36.8; O2SAT 90
[2016-08-17 07:18] LABS: CALCIUM 9.2 mg/dl (8.5-10.1); CREATININE 0.82 mg/dl (0.60-1.40); POTASSIUM 4.4 mmol/L (3.5-5.1)
[2016-08-17 07:41] VITALS: BP 146/86; PULSE 84; TEMP 36.8; O2SAT 92
[2016-08-17] MEDS: METOPROLOL SUCC 50MG EXT REL TAB PO SCH (07:46)
[2016-08-17] MEDS: LOSARTAN POTASSIUM 50 MG TAB PO SCH (07:46)
[2016-08-17] MEDS: ASPIRIN 81 MG ECTAB PO SCH (07:46)
[2016-08-17] MEDS: MULTIVITAMIN TAB PO SCH (07:46)
[2016-08-17] MEDS: NICOTINE 21 MG/24 HR TDSY TD SCH (07:46)
[2016-08-17] MEDS: FUROSEMIDE 40 MG TAB PO SCH (07:46)
--- NOTE | 2016-08-17 12:02 | PROGRESS NOTE ---
DATE: 08/17/2016 PULMONARY PROGRESS NOTE PROBLEM LIST: Includes: 1. Respiratory failure with hypoxia and hypercarbia. 2. Chronic obstructive pulmonary disease. 3. Probable obstructive sleep apnea. 4. Secondary polycythemia. SUBJECTIVE: The patient reports that he is doing well today. He is a little bit down because he thought that he was going to be able to go home today, but he had an overnight test done last night on oxygen and unfortunately the sensor fell off, so he is unable to go home today due to the need for BiPAP. He states that he is tolerating the BiPAP somewhat. He states that he still has taken it off from time to time and he states that he does not feel that he is getting a good seal with his facial hair. He states that his breathing bassett, he seems to be doing pretty well. He is not really having any cough or congestion. He is not having any wheezing or chest tightness or heaviness. He states he is walking around, he states he did 20 laps around the floor yesterday with oxygen on. He is wearing oxygen at 2 liters per minute when he walks. He states that he has done about 6 laps today, he states that he is not really getting short of breath. When he is walking, he has had oxygen on. He denies any chest pain. Denies any abdominal pain, no nausea or vomiting, no indigestion or heartburn, no difficulty with his bowels. No difficulty voiding. No swelling in his extremities. The patient may get a little bit teary. At the end of the visit, he mentioned about his passing away about 5 years ago from cancer. OBJECTIVE: GENERAL: The patient is a 55-year-old male in no acute distress. He is alert and oriented x3. Mood is good. Affect is good. VITAL SIGNS: Temp 36.8, pulse 84, respirations 20, blood pressure is 148/86, pulse ox 92% on 2 liters. HEENT: Normocephalic, atraumatic. Pupils equal, round and reactive to light and accommodation. Extraocular movements are intact. [place] moist gingival and buccal mucosa. NECK: Supple, short, thick. No mass. No adenopathy. No bruit. CHEST: The patient has a few expiratory wheezes. No rales or rhonchi noted. CARDIOVASCULAR: Regular rate and rhythm. No appreciated murmurs, gallops or rubs. ABDOMEN: Bowel sounds are present. Abdomen soft, nontender. No guarding, rigidity or organomegaly. EXTREMITIES: No erythema, trace edema bilaterally. No tenderness to palpation. No guarding. NEUROLOGIC: Cranial nerves II through XII are intact. No focal deficit noted. LABORATORY DATA: BUN 21, creatinine 0.82. IMAGING DATA: No new imaging data. IMPRESSION: 1. A 55-year-old male with respiratory failure and hypoxia, hypercarbia secondary to chronic obstructive pulmonary disease exacerbation. The patient is doing better, continues to use oxygen at 2 liters per minute, but is doing well at this. 2. Presumed obstructive sleep apnea. The patient has been doing better with his BiPAP. He still has difficulty tolerating it, but is sounding like he is trying to utilize that and wants to be able to use it more, he does feel better when he uses it. 3. Chronic obstructive pulmonary disease. The patient's long time smoking. PLAN: 1. Continue current regimen. At this point, await the results of the overnight oximetry study, for evaluation for BiPAP at night. The patient has been counseled on stopping smoking. Will continue to follow through hospitalization. ALYSSA
[2016-08-17 12:16] VITALS: BP 121/77; PULSE 92; TEMP 36.8; O2SAT 91
[2016-08-17 15:38] VITALS: BP 114/70; PULSE 92; TEMP 36.8; O2SAT 94
--- NOTE | 2016-08-17 19:32 | Progress Note ---
Medicine Progress Note Date & Time of Visit: August 17, 2016 at 09:20 . Subjective Doing well. No chest pain. No cough. Less SOB. No nausea or vomiting. Diuresing well. Nocturnal pulse oximetry study last night not completed due to technical difficulties. . Objective Last 8 Hrs Date Time Temp Pulse Resp B/P Pulse Ox O2 Delivery O2 Flow Rate FiO2 08/17/16 16:00 Nasal Cannula 2.0 08/17/16 15:38 36.8 92 20 114/70 94 Nasal Cannula 2.0 08/17/16 12:16 36.8 92 20 121/77 91 Nasal Cannula 2.0 08/17/16 12:00 Nasal Cannula 2.0 Physical Exam: General- no distress Neck- + JVD Lungs- essentially clear Heart- RRR Abdomen- obese, + BS, soft, nontender Extremities- 2+ pretibial edema; no calf tenderness Neuro- alert . Laboratory Results: Last 24 Hours Test 08/17/16 06:20 Sodium Level 138 mmol/L Potassium Level 4.4 mmol/L Chloride Level 96 mmol/L Carbon Dioxide Level 39 mmol/L Anion Gap 3.0 mmol/L Blood Urea Nitrogen 21 mg/dl Creatinine 0.82 mg/dl Est Creatinine Clear Calc Drug Dose 150.0 ml/min Estimated GFR () 117.0 Estimated GFR (Non- 101.0 BUN/Creatinine Ratio 25.0 Random Glucose 114 mg/dl Calcium Level 9.2 mg/dl Assessment & Plan CHF Echo performed in clinic demonstrated dilated RV, pulmonary hypertension, normal LVEF, diastolic dysfunction. Primarily acute right ventricular heart failure mixed with left ventricular diastolic failure. Receiving IV diuretics. Weight down 6.5 kg since admission. Pulmonary management as discussed below. ACUTE + CHORNIC HYPERCAPNIC AND HYPOXIC RESPIRATORY FAILURE Probably combination of COPD, sleep apnea, obesity hypoventilation syndrome. Echo in clinic showed pulmonary hypertension and RV systolic failure / cor pulmonale due to underlying respiratory disease. CTA chest negative for pulmonary embolism. Pulmonary Medicine consulted. Continue BiPAP as tolerated- will need at time of discharge. Outpatient sleep study and PFT's recommended. Smoking cessation discussed. POSSIBLE CIRRHOSIS Incidental finding on CTA chest was hepatomegaly, steatosis, nodularity of hepatic surface suggesting early cirrhosis. Moderate drinking in past (3 beers a night), but not at this time. May have fatty liver disease. Will need GI f/u as outpatient. Discussed with patient. POLYCYTHEMIA Hgb on admission = 18.1. Polycythemia probably due to chronic hypoxia. Follow. VTE PROPHYLAXIS SQ enoxaparin. Ambulate. DISPOSITION Expected discharge to home. Family Medicine follow-up with Dr. Christianson. Pulmonary follow-up with M[facility]. . Consultants: Cardiology Pulmonary . Procedures: CTA chest venous duplex lower extremities cardiac monitoring IV meds . Current Inpatient Medications: Current Inpatient Medications Medications (Trade) Dose Ordered Sig/Colin Route Start Time Stop Time Status Last Admin Dose Admin Enoxaparin Sodium (Lovenox Inj) 40 mg Q24H SC 08/11/16 22:00 09/10/16 21:59 08/16/16 21:03 40 MG Acetaminophen (Tylenol Tab) 650 mg Q4H PRN PO 08/11/16 20:00 09/10/16 19:59 Nitroglycerin (Nitrostat Tab) 0.4 mg UD PRN SL 08/11/16 20:00 09/10/16 19:59 Nicotine (Nicoderm Cq 21MG Patch) 1 patch QAM TD 08/12/16 09:00 09/11/16 08:59 08/14/16 08:16 1 PATCH Miscellaneous (Remove Nicoderm Patch) 1 ea HS N/A 08/12/16 21:00 09/11/16 20:59 08/14/16 20:24 1 EA Furosemide (Lasix Tab) 40 mg DAILY PO 08/12/16 09:00 09/11/16 08:59 08/17/16 07:46 40 MG Multivitamins (Multivitamin Tab) 1 tab QAM PO 08/12/16 09:00 09/11/16 08:59 08/17/16 07:46 1 TAB Tramadol HCl (Ultram Tab) 50 mg Q6H PRN PO 08/11/16 20:00 09/10/16 19:59 Ipratropium [place] (Atrovent 0.02% 0.5MG/2.5ML Neb) 0.5 mg Q4H PRN INH 08/11/16 21:30 09/10/16 21:29 08/12/16 09:23 0.5 MG Levalbuterol (Xopenex 1.25MG/ 0.5ML Neb) 1.25 mg Q4H PRN INH 08/11/16 21:30 09/10/16 21:29 08/12/16 09:23 1.25 MG Aspirin (Ecotrin Tab) 81 mg QAM PO 08/12/16 11:30 09/11/16 11:29 08/17/16 07:46 81 MG Metoprolol Succinate (Toprol Xl Tab) 50 mg QAM PO 08/14/16 09:00 09/13/16 08:59 08/17/16 07:46 50 MG Losartan Potassium (coZAAR TAB) 50 mg QAM PO 08/14/16 09:00 09/13/16 08:59 08/17/16 07:46 50 MG Sodium Chloride ([place] Nasal [place]) 1 sprays PRN PRN NA 08/16/16 08:00 09/15/16 07:59
[2016-08-17 20:28] VITALS: BP 118/76; PULSE 85; TEMP 37.1; O2SAT 94
[2016-08-17] MEDS: ENOXAPARIN 40 MG/0.4 ML SYR SC SCH (21:54)
[2016-08-17 23:43] VITALS: BP 112/64; PULSE 73; TEMP 36.5; O2SAT 93
[2016-08-18 04:02] VITALS: BP 114/69; PULSE 77; TEMP 36.6; O2SAT 94
[2016-08-18 07:13] LABS: BASO % 0.6 %; BASO ABS # 0.04 K/uL (0-0.2); COMPLETE YES; EOS % 7.2 %; HEMATOCRIT 56.6 % (42-52); IG% 0.1 %; LYMPH % 28.8 %; LYMPH ABS # 2.01 K/uL (1.2-3.4); MEAN CELL VOLUME 102.4 fL (80-100); MEAN CORPUSCULAR HEMOGLOBIN 33.3 pg (25-34); MEAN CORPUSCULAR HGB CONC 32.5 g/dl (32-36); MEAN PLATELET VOLUME 9.2 fL (7.4-10.4); MONO % 9.6 %; NEUT % 53.7 %; PLATELET COUNT 161 K/uL (130-400); RED BLOOD COUNT 5.53 M/uL (4.7-6.1); WHITE BLOOD COUNT 6.99 K/uL (4.8-10.8)
[2016-08-18 07:25] VITALS: BP 129/73; PULSE 73; TEMP 36.9; O2SAT 94
[2016-08-18 07:48] LABS: BUN/CREATININE RATIO 21.3 (10-20); CALCIUM 9.1 mg/dl (8.5-10.1); CREATININE 0.9 mg/dl (0.60-1.40); POTASSIUM 4.2 mmol/L (3.5-5.1)
[2016-08-18] MEDS: LOSARTAN POTASSIUM 50 MG TAB PO SCH (08:06)
[2016-08-18] MEDS: ASPIRIN 81 MG ECTAB PO SCH (08:06)
[2016-08-18] MEDS: MULTIVITAMIN TAB PO SCH (08:06)
[2016-08-18] MEDS: METOPROLOL SUCC 50MG EXT REL TAB PO SCH (08:06)
[2016-08-18] MEDS: FUROSEMIDE 40 MG TAB PO SCH (08:07)
[2016-08-18] MEDS: NICOTINE 21 MG/24 HR TDSY TD SCH (08:07)
[2016-08-18 11:01] VITALS: BP 155/79; PULSE 89; TEMP 36.5; O2SAT 94
--- NOTE | 2016-08-18 11:39 | Consultant Recommendations ---
Chemical Strength Tester Recommendations Date of Service August 18, 2016. Chemical Strength Tester Recommendations The patient has a followup scheduled in the [facility] [place] office on at 9:45 am.
--- NOTE | 2016-08-18 12:27 | PROGRESS NOTE ---
DATE: 08/18/2016 DATE: 08/18/2016. PROBLEM LIST: Includes: 1. Respiratory failure with hypoxia and hypercarbia. 2. Chronic obstructive pulmonary disease. 3. Probable obstructive sleep apnea. 4. Secondary polycythemia. HISTORY OF PRESENT: The patient reports that he is doing well today. He did have the overnight study last night. It is showing desaturation of greater than 50 minutes on oxygen at 2 liters per minute. The longest continuous episode was for 16 minutes and 40 seconds. He had 7 events over 3 minutes. He had 21 events between 10 seconds and 3 minutes with the average duration of those being 90.4 seconds. The patient reports that he is breathing well. He did have a 2-step done today and does require 2 liters with ambulation. At rest his oxygen saturation is maintaining at about 95%. He denies any cough at this time. No chest pain. No chest pressure. No chest tightness. He is not having any palpitations at this time. He is not having any wheezing. He states that he has been up walking around with oxygen and is doing well. He is concerned about going back to work. He states that he does need [facility] paperwork filled out. I did inform him that our office can fill this out for him. He states that he also is going to be set up with cardiology. He showed me a list of names with the [facility] group. He is not having any GI symptoms. No bowel symptoms, no swelling in his extremities. OBJECTIVE: GENERAL: The patient is a 55-year-old male in no acute distress. He is alert and oriented x3. Mood is good. Affect is good. VITAL SIGNS: Temp 36.9, pulse 73, respirations 20, blood pressure is 129/73, pulse ox is 94% on 2 liters. HEAD, EYES, EARS, NOSE, AND THROAT: Normocephalic, atraumatic. Pupils equal, round and react to light and accommodation. Extraocular movements are intact. Rupert moist gingival and buccal mucosa. NECK: Supple. No mass. No adenopathy. No bruit. CHEST: Overall pretty clear today. I do not really appreciate any wheeze or rales at this time. CARDIOVASCULAR: Regular rate and rhythm. No murmurs, gallops or rubs. ABDOMEN: Bowel sounds present. Abdomen soft, nontender. No guarding, rigidity or organomegaly. EXTREMITIES: No erythema or edema. No cyanosis or clubbing. NEUROLOGIC: Cranial nerves II through XII are intact. No focal deficit noted. LABORATORY DATA: Shows white count 6.9, H\T\H of 18.4 and 56.5, platelet count of 161,000. BUN 19, creatinine 0.9. No new imaging data. IMPRESSION: This is a 55-year-old male with respiratory failure, hypoxia and hypercarbia secondary to COPD as well as polycythemia and right ventricular cardiac dysfunction with possible pulmonary hypertension. At this point, the patient is improved. He is doing well with current medications. He did have a 2-step done today and is showing some slight desaturations to about 86% with ambulation which is corrected with 2 liters of oxygen. He is to use oxygen as part of his protocol with any type of exertion or ambulation. His overnight did show desaturation greater than 16 minutes. In 1 continuous episode he had several events over 3 minutes and 21 events between 10 seconds and 3 minutes. At this time, it is recommended that he have BiPAP for continued treatment as this may help prevent his CO2 retention or decrease it. It does appear that the patient is going to be discharged today at this time. He does have an appointment set up in the office on August 31 at 9:45 a.m. He is to keep that appointment. As discussed above he did have some significant concerns and anxieties about his [facility] paperwork. I did inform him that our office would fill it out for him. He will be followed up in the office.
[2016-08-18] MEDS ORDERED: OXYGEN ×2 (14:18→14:48)
[2016-08-18 15:12] VITALS: BP 155/79; PULSE 89; TEMP 36.5; O2SAT 94
[2016-08-18] MEDS ORDERED: ASPEC81 PO (15:33)
[2016-08-18] MEDS ORDERED: TPRSR50 PO (15:33)
[2016-08-18] MEDS ORDERED: CZR50 PO (15:33)
[2016-08-18] MEDS ORDERED: LSX40 PO (15:33)
--- NOTE | 2016-08-18 16:09 | Discharge Instructions ---
Discharge Instructions Date of Service August 18, 2016. Admission Reason for Admission: shortness of breath . Discharge Discharge Diagnosis / Problem: congestive heart failure (fluid retention in lungs and legs) Discharge Goals Goal(s): Decrease discomfort, Improve function, Increase independence, Improve disease control Activity Recommendations Activity Limitations: as noted below Lifting Limitations: gradually increase as tolerated . Instructions / Follow-Up Instructions / Follow-Up APPOINTMENTS: MEDICINE 08/23/2016 11:00 AM Patty Myers MD (covering for Dr. Christianson) [facility] CARDIOLOGY [facility] Office will contact you with appointment. PULMONARY Lynette Harvey PA-C 08/31/16 at 9:[address] [facility] [id number] [place] [address] INSTRUCTIONS: You have congestive heart failure, primarily due to lung problems. New medications for congestive heart failure and high blood pressure: furosemide (Lasix) 40 mg twice a day (new dose) aspirin (Ecotrin) 81 mg daily losartan (Cozaar) 50 mg daily metoprolol succinate (Toprol XL) 50 mg daily STOP hydrochlorothiazide. STOP ramipril (Altace). Losartan (Cozaar) is taking its place. STOP ibuprofen (Advil or Motrin)- it can cause fluid retention, high blood pressure, heart attacks, strokes, kidney failure. Wear oxygen 2 liters / minute when you are sleeping and during the day when walking. Please do not smoke- it will cause more damage to your lungs and heart. Please do not drink any alcoholic beverages, including beer. Arrangements will be made for pulmonary function tests and sleep study. Seek medical attention if you have: * temperature above 101 * chest pain or trouble breathing * abdominal pain, nausea, vomiting * diarrhea, dark stools or bloody stools * any unanswered questions or concerns Call 911 if symptoms are severe. Call if you have any questions or problems. My cell # is [phone]. You can also reach a [facility] hospitalist on duty at [facility] 24 hours a day by calling [phone]. Please take good care of yourself. Kenton Brooks INSTRUCTIONS FOR CONGESTIVE HEART FAILURE: Call your Primary Care doctor if any of the following symptoms or problems start or get worse: * Shortness of breath or difficulty breathing * Wake up at night short of breath * Chest pain * Cough * Swelling of your hands, feet, or legs * More fatigued or tired with your normal activity * Palpitations - sudden fast heart beats WEIGHT * Weigh yourself every morning after using the bathroom. * Use the same scale. * Wear the same amount of clothing. * Write your weight down on a chart. * Call your Primary Care doctor if you gain more than 2-3 pounds in 1-2 days. MEDICATIONS * Use this discharge instruction sheet for medication instructions. * Take your medications at the time your doctor ordered. * Do not skip a dose of your medicines. * If you miss a dose of medicine, take it as soon as possible, but DO NOT DOUBLE A DOSE. * Read your medicine information when you get home. * Know all of the side effects of your medicine. If in doubt, ask your pharmacist * Call your Primary Care doctor's office if you have any side effects. * Be sure all of your doctors know what medicine and herbs you take (including cold, flu, and herbal medicine). Take the following with you to your follow-up doctor appointments: * Weight Chart * Medication List * List of questions . Current Hospital Diet Patient's current hospital diet: AHA Diet (Heart Healthy) Discharge Diet Recommended Diet: AHA Diet (Heart Healthy) Pending Studies Studies pending at discharge: no Work Instructions Return To Work: after follow-up Additional Instructions: Mr. Dietrich has been absent from work since 08/11/16 due to illness. Return to work date to be determined after further evaluation and consultation. Medical Emergencies . Who to Call and When: Call 911 or go to the Emergency Room if: * If at any time you feel your situation is an emergency * You have tightness or pain in your chest that does not go away with rest or Nitroglycerin * You are very short of breath even with rest . Non-Emergent Contact Non-Emergency issues call your: Primary Care Provider . . "Provider Documentation" section prepared by Kenton Brooks. . Credit Resolution Representative Recommendations Credit Resolution Representative Recommendations: The patient has a followup scheduled in the [facility] pulmonary [place] office on at 9:45 am. VTE Core Measure Inpt VTE Proph given/why not?: Enoxaparin (Lovenox)SQ
--- NOTE | 2016-08-18 16:22 | Progress Note ---
Medicine Progress Note Date & Time of Visit: August 18, 2016 at ~ 15:00 . Subjective Doing well. Dyspnea improved. No cough. No chest pain. Ambulating with O2. . Objective Last 8 Hrs Date Time Temp Pulse Resp B/P Pulse Ox O2 Delivery O2 Flow Rate FiO2 08/18/16 15:12 36.5 89 20 94 Nasal Cannula 08/18/16 12:00 Nasal Cannula 2.0 08/18/16 11:01 36.5 89 20 155/79 94 Nasal Cannula 2.0 Physical Exam: General- no distress Neck- + JVD Lungs- essentially clear Heart- RRR Abdomen- obese, + BS, soft, nontender Extremities- 1-2+ pretibial edema; no calf tenderness Neuro- alert . Laboratory Results: Last 24 Hours Test 08/18/16 06:40 White Blood Count 6.99 K/uL Red Blood Count 5.53 M/uL Hemoglobin 18.4 g/dL Hematocrit 56.6 % Mean Corpuscular Volume 102.4 fL Mean Corpuscular Hemoglobin 33.3 pg Mean Corpuscular Hemoglobin Concent 32.5 g/dl Platelet Count 161 K/uL Mean Platelet Volume 9.2 fL Neutrophils (%) (Auto) 53.7 % Lymphocytes (%) (Auto) 28.8 % Monocytes (%) (Auto) 9.6 % Eosinophils (%) (Auto) 7.2 % Basophils (%) (Auto) 0.6 % Neutrophils # (Auto) 3.76 K/uL Lymphocytes # (Auto) 2.01 K/uL Monocytes # (Auto) 0.67 K/uL Eosinophils # (Auto) 0.50 K/uL Basophils # (Auto) 0.04 K/uL RDW Standard Deviation 51.6 fL RDW Coefficient of Variation 13.6 % Immature Granulocyte % (Auto) 0.1 % Immature Granulocyte # (Auto) 0.01 K/uL Sodium Level 137 mmol/L Potassium Level 4.2 mmol/L Chloride Level 96 mmol/L Carbon Dioxide Level 40 mmol/L Anion Gap 1.0 mmol/L Blood Urea Nitrogen 19 mg/dl Creatinine 0.90 mg/dl Est Creatinine Clear Calc Drug Dose 136.7 ml/min Estimated GFR () 112.6 Estimated GFR (Non- 97.2 BUN/Creatinine Ratio 21.3 Random Glucose 128 mg/dl Calcium Level 9.1 mg/dl Assessment & Plan CHF Echo performed in clinic demonstrated dilated RV, pulmonary hypertension, normal LVEF, diastolic dysfunction. Primarily acute right ventricular heart failure mixed with left ventricular diastolic failure. Right-sided heart failure secondary to underlying pulmonary disease (s). Pulmonary embolism ruled out per CTA. Received diuretics and lost 6.4 kg during hospital stay. CHF instructions given. Pulmonary management as discussed below. ACUTE + CHRONIC HYPERCAPNIC AND HYPOXIC RESPIRATORY FAILURE Probably combination of COPD, sleep apnea, obesity hypoventilation syndrome. Echo in clinic showed pulmonary hypertension and RV systolic failure / cor pulmonale due to underlying respiratory disease. CTA chest negative for pulmonary embolism. ABG on RA: Item Value Date Time Arterial Blood pH 7.30 L 08/11/161956 Arterial Blood Partial Pressure CO2 73 mmHg H 08/11/161956 Arterial Blood Partial Pressure O2 47 mmHg L 08/11/161956 Arterial Blood HCO3 35 mmol/L H 08/11/161956 Arterial Blood Oxygen Saturation 80.2 % L 08/11/161956 Arterial Blood Gas Delivery ROOM AIR 08/11/161956 Pulmonary Medicine consulted. BiPAP was utilized during hospital stay. Nocturnal O2 saturations as low as 81% on RA. Desaturation with exercise also noted. Did not qualify for BiPAP per data available by time of discharge. Discharged to home on O2 2 LPM. Outpatient sleep study and PFT's to be arranged. Smoking cessation discussed. POSSIBLE CIRRHOSIS Incidental finding on CTA chest was hepatomegaly, steatosis, nodularity of hepatic surface suggesting early cirrhosis. Moderate drinking in past (3 beers a night), but not at this time. May have fatty liver disease. Will need GI f/u as outpatient. Discussed with patient. POLYCYTHEMIA Hgb on admission = 18.1. Polycythemia probably due to chronic hypoxia. Follow. VTE PROPHYLAXIS SQ enoxaparin. Ambulating. DISPOSITION Discharge to home. Family Medicine follow-up with Dr. Christianson. Pulmonary follow-up with [facility]. Follow[facility]up with [facility]. [facility]. . Consultants: Cardiology Pulmonary . Procedures: CTA chest venous duplex lower extremities cardiac monitoring IV meds . Current Inpatient Medications: Current Inpatient Medications Medications (Trade) Dose Ordered Sig/Colin Route Start Time Stop Time Status Last Admin Dose Admin Enoxaparin Sodium (Lovenox Inj) 40 mg Q24H SC 08/11/16 22:00 09/10/16 21:59 08/17/16 21:54 40 MG Acetaminophen (Tylenol Tab) 650 mg Q4H PRN PO 08/11/16 20:00 09/10/16 19:59 Nitroglycerin (Nitrostat Tab) 0.4 mg UD PRN SL 08/11/16 20:00 09/10/16 19:59 Nicotine (Nicoderm Cq 21MG Patch) 1 patch QAM TD 08/12/16 09:00 09/11/16 08:59 08/14/16 08:16 1 PATCH Miscellaneous (Remove Nicoderm Patch) 1 ea HS N/A 08/12/16 21:00 09/11/16 20:59 08/14/16 20:24 1 EA Furosemide (Lasix Tab) 40 mg DAILY PO 08/12/16 09:00 09/11/16 08:59 08/18/16 08:07 40 MG Multivitamins (Multivitamin Tab) 1 tab QAM PO 08/12/16 09:00 09/11/16 08:59 08/18/16 08:06 1 TAB Tramadol HCl (Ultram Tab) 50 mg Q6H PRN PO 08/11/16 20:00 09/10/16 19:59 08/18/16 11:02 50 MG Ipratropium [place] (Atrovent 0.02% 0.5MG/2.5ML Neb) 0.5 mg Q4H PRN INH 08/11/16 21:30 09/10/16 21:29 08/12/16 09:23 0.5 MG Levalbuterol (Xopenex 1.25MG/ 0.5ML Neb) 1.25 mg Q4H PRN INH 08/11/16 21:30 09/10/16 21:29 08/12/16 09:23 1.25 MG Aspirin (Ecotrin Tab) 81 mg QAM PO 08/12/16 11:30 09/11/16 11:29 08/18/16 08:06 81 MG Metoprolol Succinate (Toprol Xl Tab) 50 mg QAM PO 08/14/16 09:00 09/13/16 08:59 08/18/16 08:06 50 MG Losartan Potassium (coZAAR TAB) 50 mg QAM PO 08/14/16 09:00 09/13/16 08:59 08/18/16 08:06 50 MG Sodium Chloride ([place] Nasal [place]) 1 sprays PRN PRN NA 08/16/16 08:00 09/15/16 07:59
--- NOTE | 2016-08-18 16:31 | Discharge Summary ---
Discharge Summary Date of Service August 18, 2016. Discharge Summary Admission Date: August 11, 2016 at 19:18 Discharge Date: August 18, 2016 Principal Diagnosis: congestive heart failure acute + chronic left ventricular diastolic failure acute + chronic right ventricular systolic failure (cor pulmonale) acute on chronic hypoxic and hypercapnic respiratory failure obesity hypoventilation syndrome probable sleep apnea probable COPD possible cirrhosis of liver per CT . Secondary Diagnoses/Problems: Chronic and Resolved Medical Problems: (1) CHF (congestive heart failure) Status: Chronic (2) Depression Status: Chronic (3) Hypertension Status: Chronic (4) Testicular hypofunction Status: Chronic (5) Tobacco use disorder Status: Chronic Surgical Problems: (1) H/O endoscopic sinus surgery Status: Chronic . Procedures: CTA chest venous duplex lower extremities cardiac monitoring IV meds BiPAP . Consultations: Cardiology Pulmonary . Pending Studies/Follow-Up: Please check basic metabolic profile in clinic Re: CHF. Please arrange for sleep study as soon as possible Re: chronic hypoxic and hypercapnic respiratory failure. Please make referral to Lynette Harvey PA-C (Pulmonary Medicine) if necessary Re: chronic hypoxic and hypercapnic respiratory failure. Appointment already made for 08/31/16. Please make referral to Ricardo Rand PA-C Re: CHF. Please make referral to GI Re: possible cirrhosis noted on CT. . Medication Reconciliation New Medications: Home O2 Therapy (Oxygen) Gas 1 LITER NA UD, #2 Dx: chronic hypoxic respiratory failure, nocturnal hypoxia 2 LPM by nasal cannula continuously + supplies + portable equipment Aspirin (Aspirin EC Low Dose) 81 Mg Ectab 81 MG PO QAM, #30 TAB 5 Refills Furosemide (Furosemide) 40 Mg Tab 40 MG PO BID, #60 TAB 5 Refills Losartan Potassium (Losartan Potassium) 50 Mg Tab 50 MG PO QAM, #30 TAB 5 Refills Metoprolol Succinate (Metoprolol Succinate ER) 50 Mg Tabcr 50 MG PO QAM, #30 TAB 5 Refills Continued Medications: Multivitamin (Multivitamin) Tab 1 TAB PO QAM Tramadol (Ultram) 50 Mg Tab 50 MG PO Q6H PRN for Pain, TAB Discontinued Medications: Furosemide (Lasix) 40 Mg Tab 40 MG PO DAILY, TAB Hydrochlorothiazide (Hydrochlorothiazide) 12.5 Mg Tab 12.5 MG PO DAILY, TAB Ibuprofen Tab (Motrin) 400 Mg Tab 400 MG PO BID PRN for Pain, TAB Ramipril (Altace) 10 Mg Cap 10 MG PO BID, CAP Admission Information HPI (per Admitting provider): Medical history significant for chronic diastolic HF, hypertension, depression, ongoing tobacco abuse. Recent confinement 2009 at the mental health unit for depression. The last month, the patient noted shortness of breath, especially on exertion. No new cough symptoms. Increasing abdominal distention and libby leg swelling. some orthopnea sx. weight gain of about 40 lbs as per px. Seen at PCP's office 3 weeks ago. CXR pulm congestion Px started on diuretics. Improvement of swelling and symptoms. Outpx Cardiology evaluation today. 2D echo showed LVH, mild. EF 60%-70%. RV pressure, volume overload, grade 1 diastolic dysfunction, RV dilatation, typical of acute PE, mild lateral right ventricle akinesis, sparing the basal and apical lateral segments, congenital bicuspid aortic valve, mild calcific aortic valve without stenosis. pulmonary hypertension present. Patient sent to the Emergency Room for further evaluation. Px unaware of snoring sx even when was still alive. Claims he had a normal sleep study years ago after a sinus surgery. . Physical Exam (per Admitting): VITAL SIGNS: Blood pressure was noted to be 120/80, pulse rate 101, RR 20, temperature 37, sats 92 on 3 liters. GENERAL: Noted to be obese, no overt respiratory distress. SKIN: Normal color. HEENT: Burchard palpebral conjuctivae. Moist buccal mucosa. nasal cannula in place NECK: Short. LUNGS: Occasional wheeze. HEART: Tachycardic. ABDOMEN: Some distension. NT EXTREMITIES: Bilateral lower extremity edema, right greater than left. No tenderness. NEUROLOGIC: No gross focality. . Hospital Course CHF Presented with worsening dyspnea, dependent edema, abdominal distention. Echo performed in clinic demonstrated dilated RV, pulmonary hypertension, normal LVEF, diastolic dysfunction. Primarily acute right ventricular heart failure mixed with left ventricular diastolic failure. Right-sided heart failure secondary to underlying pulmonary disease (s). Pulmonary embolism ruled out per CTA. Received diuretics and lost 6.4 kg during hospital stay. CHF instructions given. Pulmonary management as discussed below. ACUTE + CHRONIC HYPERCAPNIC AND HYPOXIC RESPIRATORY FAILURE Probably combination of COPD, sleep apnea, obesity hypoventilation syndrome. Echo in clinic showed pulmonary hypertension and RV systolic failure / cor pulmonale due to underlying respiratory disease. CTA chest negative for pulmonary embolism. ABG on RA: Item Value Date Time Arterial Blood pH 7.30 L 08/11/161956 Arterial Blood Partial Pressure CO2 73 mmHg H 08/11/161956 Arterial Blood Partial Pressure O2 47 mmHg L 08/11/161956 Arterial Blood HCO3 35 mmol/L H 08/11/161956 Arterial Blood Oxygen Saturation 80.2 % L 08/11/161956 Arterial Blood Gas Delivery ROOM AIR 08/11/161956 Pulmonary Medicine consulted. BiPAP was utilized during hospital stay. Nocturnal O2 saturations as low as 81% on RA. Desaturation with exercise also noted. Did not qualify for BiPAP per data available by time of discharge. Discharged to home on O2 2 LPM. Outpatient sleep study and PFT's to be arranged. Smoking cessation discussed. POSSIBLE CIRRHOSIS Incidental finding on CTA chest was hepatomegaly, steatosis, nodularity of hepatic surface suggesting early cirrhosis. Moderate drinking in past (3 beers a night), but not at this time. May have fatty liver disease. Will need GI f/u as outpatient. Discussed with patient. POLYCYTHEMIA Hgb on admission = 18.1. Polycythemia probably due to chronic hypoxia. Follow. VTE PROPHYLAXIS SQ enoxaparin. Ambulating. DISPOSITION Discharge to home. Family Medicine follow-up with Dr. Christianson. Pulmonary follow-up with [facility]. Follow-up with [facility]. Follow-up with Jose E STRICKLAND to be arranged. . Total time spent on discharge = 45 min. This includes examination of the patient, discharge planning, medication reconciliation, and communication with other providers. . Discharge Instructions Date of Service August 18, 2016. Admission Reason for Admission: shortness of breath . Discharge Discharge Diagnosis / Problem: congestive heart failure (fluid retention in lungs and legs) Discharge Goals Goal(s): Decrease discomfort, Improve function, Increase independence, Improve disease control Activity Recommendations Activity Limitations: as noted below Lifting Limitations: gradually increase as tolerated . Instructions / Follow-Up Instructions / Follow-Up APPOINTMENTS: MEDICINE 08/23/2016 11:00 AM Patty Myers MD (covering for Dr. Christianson) [facility] CARDIOLOGY [facility] Office will contact you with appointment. PULMONARY Lynette Harvey PA-C 08/31/16 at 9:45 AM [facility] [address] [place] [address] [address] [place] [address] INSTRUCTIONS: You have congestive heart failure, primarily due to lung problems. New medications for congestive heart failure and high blood pressure: furosemide (Lasix) 40 mg twice a day (new dose) aspirin (Ecotrin) 81 mg daily losartan (Cozaar) 50 mg daily metoprolol succinate (Toprol XL) 50 mg daily STOP hydrochlorothiazide. STOP ramipril (Altace). Losartan (Cozaar) is taking its place. STOP ibuprofen (Advil or Motrin)- it can cause fluid retention, high blood pressure, heart attacks, strokes, kidney failure. Wear oxygen 2 liters / minute when you are sleeping and during the day when walking. Please do not smoke- it will cause more damage to your lungs and heart. Please do not drink any alcoholic beverages, including beer. Arrangements will be made for pulmonary function tests and sleep study. Seek medical attention if you have: * temperature above 101 * chest pain or trouble breathing * abdominal pain, nausea, vomiting * diarrhea, dark stools or bloody stools * any unanswered questions or concerns Call 911 if symptoms are severe. Call if you have any questions or problems. My cell # is [phone]. You can also reach a [facility] hospitalist on duty at [facility] 24 hours a day by calling [phone]. Please take good care of yourself. Kenton Brooks INSTRUCTIONS FOR CONGESTIVE HEART FAILURE: Call your Primary Care doctor if any of the following symptoms or problems start or get worse: * Shortness of breath or difficulty breathing * Wake up at night short of breath * Chest pain * Cough * Swelling of your hands, feet, or legs * More fatigued or tired with your normal activity * Palpitations - sudden fast heart beats WEIGHT * Weigh yourself every morning after using the bathroom. * Use the same scale. * Wear the same amount of clothing. * Write your weight down on a chart. * Call your Primary Care doctor if you gain more than 2-3 pounds in 1-2 days. MEDICATIONS * Use this discharge instruction sheet for medication instructions. * Take your medications at the time your doctor ordered. * Do not skip a dose of your medicines. * If you miss a dose of medicine, take it as soon as possible, but DO NOT DOUBLE A DOSE. * Read your medicine information when you get home. * Know all of the side effects of your medicine. If in doubt, ask your pharmacist * Call your Primary Care doctor's office if you have any side effects. * Be sure all of your doctors know what medicine and herbs you take (including cold, flu, and herbal medicine). Take the following with you to your follow-up doctor appointments: * Weight Chart * Medication List * List of questions . Current Hospital Diet Patient's current hospital diet: AHA Diet (Heart Healthy) Discharge Diet Recommended Diet: AHA Diet (Heart Healthy) Pending Studies Studies pending at discharge: no Work Instructions Return To Work: after follow-up Additional Instructions: Mr. Dietrich has been absent from work since 08/11/16 due to illness. Return to work date to be determined after further evaluation and consultation. Medical Emergencies . Who to Call and When: Call 911 or go to the Emergency Room if: * If at any time you feel your situation is an emergency * You have tightness or pain in your chest that does not go away with rest or Nitroglycerin * You are very short of breath even with rest . Non-Emergent Contact Non-Emergency issues call your: Primary Care Provider . . "Provider Documentation" section prepared by Kenton Brooks. . Brand Marketing Manager Recommendations Brand Marketing Manager Recommendations: The patient has a [place] [facility] [place] on at 9:45 am. VTE Core Measure Inpt VTE Proph given/why not?: Enoxaparin (Lovenox)SQ . Additional Copies To Ottoniel Dickinson DO; Lynette Harvey PA-C; Ricardo Rand PA-C; Patty Myers M.D.; Kenton Christianson III, M.D.
[2016-08-18] MEDS ORDERED: NURSING VERBAL MED ORDER ONE (17:45)
[2016-08-18] MEDS ORDERED: DESTROY THIS MEDICATION ONE (17:45)
[2016-10-11] MEDS ORDERED: VAREPAK PO (08:36)
[2016-10-11] MEDS ORDERED: BUPR150T5 PO (08:36)
[2016-10-11] MEDS ORDERED: METO50TA7 PO (08:36)
== END 2016-08-18 17:45 | disposition home or self-care (01) | DRG 291 ==
LOC: ENRESERVTM → ENRESERVDT → EDBD 17:16 → C.EDC 17:18 → C.2T 19:18
PROVIDERS: ADMIT Hospitalist; ATTEND Hospitalist
DX: I50.43 Acute on chronic combined systolic (congestive) and diastolic (congestive) heart failure (principal); J96.22 Acute and chronic respiratory failure with hypercapnia; J96.01 Acute respiratory failure with hypoxia; J96.21 Acute and chronic respiratory failure with hypoxia; E66.2 Morbid (severe) obesity with alveolar hypoventilation; Z68.41 Body mass index [BMI] 40.0-44.9, adult; I27.81 Cor pulmonale (chronic); J44.9 Chronic obstructive pulmonary disease, unspecified; F32.9 Major depressive disorder, single episode, unspecified; F17.210 Nicotine dependence, cigarettes, uncomplicated; K74.60 Unspecified cirrhosis of liver; E29.9 Testicular dysfunction, unspecified; D75.1 Secondary polycythemia; I27.2 Other secondary pulmonary hypertension; Z79.899 Other long term (current) drug therapy; Z79.1 Long term (current) use of non-steroidal anti-inflammatories (NSAID); Z79.891 Long term (current) use of opiate analgesic

== ENCOUNTER → 2016-09-22 | Outpatient (CLI) | payer BC ==
[~2016-09-22] MED LIST changes: -ALT10 PO; -AMBCR125 PO; +ASPEC81 PO; +BUPR150T5 PO; +CZR50 PO; -ESCI1TAB10 PO; +LSX40 PO; +METO50TA7 PO; +OXYGEN; -RISP1TAB68 PO; +TPRSR50 PO; +TRAM-10 PO; +VAREPAK PO
--- NOTE | 2016-09-23 05:56 | PAP/PSG TECHNICIAN REPORT ---
[facility] Lift Mechanic Polysomnogram Report Study name: None Report date: 09/23/2016 Study date: 09/22/2016 Referring Physician: OTTONIEL FAIR DO, DO Name: GURMEET DIETRICH Interpreting Physician: Ottoniel Fair D.O. Date of : 1960 Lift Mechanic: Domenica Hoffmann, PSGT. Sex: Male Age: 56 StudyType: PSG Weight: 305 lbs Height: 56 years, Height 5' 11" BMI: 42.53 Medications: Aspirin 81 mg, Furosemide 40 mg, Losartan 50 mg, Metoprolol ER 50 mg, Tramadol 50 mg, Wellbutrin XL 150 mg. Patient History 56 yr. old male in room 7, presents tonight with resp..failure, failed pulse ox test. Pt. uses 2 liters of oxygen at night. Parameters Monitored NPSG: E1-M2, E2-M1, Fp1-M2, Fp2-M1, F3-M2, F4-M2, F4-M1, C3-M2, C4-M2, C4-M1, O1-M2, O2-M2, O2-M1, T3-M2, T4-M1, P3-M2, P4-M1, CHIN1, CHIN2, HR, EKG, Legs, PFLOW, SNOR, FLOW, CFLOW, Tidal Volume, THOR, ABDO, SpO2, PLTH, CPRESS, ETCO2 Wave, ETCO2, pH Sleep Architecture Sleep Stages Time at Lights Off 9:41:19 PM STAGES Time (min.) TST (%) Time at Lights On 5:13:19 AM Wake 87.0 -- Total Recording Time (TRT) 451.00 min. N1 6.5 2 Total Sleep Period (TSP) 414.0 min. N2 325.5 89 Total Sleep Time (TST) 364.0min. N3 0.0 0 Awake Time 87.0 min. REM 32.0 9 Wake after Sleep Onset 51.0 min. Sleep Efficiency (SE) 81 % Sleep Onset Latency (YADIRA) 37.0 min. Number of Stage 1 Shifts None Awakenings 10 Stage Changes 35 Number of REM periods 3 REM 32.0 9 REM Latency 289.5 min. NREM 332.0 91 Body Position Analysis Supine Right Left Side Prone Vertical Total Sleep Time (min.) 261.2 45.0 129.4 174.32 0.0 0.0 Total Sleep Time (%) 52% 12% 36% 48 0% N/A% Total Sleep Time REM (min.) 0.0 0.0 32.0 None 0.0 0.0 Total Sleep Time NREM (min.) 189.7 45.0 97.4 None 0.0 0.0 Intermittent Wake (min.) 71.5 13.0 2.5 None 0.0 0.0 Total Sleep Period (%) 54% None None None None None Arousals Myoclonus (PLM) * Events Count Index Events Count Index Spontaneous 216 36 Events Awake (PLMW) 0 0.0 Respiratory 17 2.8 Events Asleep w/ Arousal (PLMA) 27 4.5 PLM 27 4 Events Asleep w/o Arousal (PLMS) 277 45.7 Snoring 28 5 Total Asleep 304 50.1 Total 287 47 Total 304 40 Respiratory Analysis * CA OA MA CH H RERA Total Count 0 0 0 0 36 0 37 Index 0.0 0.0 0.0 0 5.9 0 6.1 Mean Duration 0.0 0.0 0.0 28.82 20.9 0.0 21.1 Longest Duration 0.0 0.0 0.0 28.82 0.0 0.0 49.4 Respiratory Event Summary Total Supine ~Supine Right Left Prone REM NREM Apneas Count 0 0 0 0 0 N/A 0 0 Index 0.0 0 0 0.0 0.0 N/A 0 0 Hypopneas (4% Desat) Count 36 25 11 9 2 N/A 2 34 Index 5.9 7.9 4 12.0 0.9 N/A 3.8 6.1 Apneas & All Hypopneas Count 37 25 12 9 3 N/A 2 35 Index 6.1 8 4 12 1 N/A 3.8 6.3 Respiratory Events (Toe Lining Closer+All Hyp+RERA) Count 37 25 12 9 3 N/A 2 35 Index 6.1 8 4 12.0 1.4 N/A 3.8 6.3 Respiratory Related Arousal Count 17 25 7 6 1 N/A 1 16 Index 2.8 3 2 8 0 N/A 2 3 Snoring Analysis Supine Right Left Prone REM NREM Total Snore duration 14.1 min Snores count 320 75 78 N/A 8 465 473 Snore mean duration 1.8 Sec Snores index 101 100 36 N/A 15.0 84.0 78.0 TST with snoring (%) 3.9% SpO2 Analysis Total REM NREM Awake <50% 0.0 min. 0.0 min. 0.0 min. 0.0 min. 51 - 60% 0.0 min. 0.0 min. 0.0 min. 0.0 min. 61 - 70% 0.0 min. 0.0 min. 0.0 min. 0.0 min. 71 - 80% 41.4 min. 0.0 min. 17.3 min. 24.1 min. 81 - 90% 375.8 min. 28.6 min. 296.2 min. 51.0 min. 91 - 100% 5.8 min. 2.6 min. 2.4 min. 0.7 min. Average 85 87 85 82 Minimum SpO2 73 83 77 73 Desaturation Event Index 10.2 3.8 13.6 0.0 # Desat. Events below 89% 77 2 75 0 Time(%) with Saturation below 89% 91.6 5.4 69.0 17.3 Time(min.) with Saturation below 89% 387.5 22.7 291.6 73.2 Heart Rate Analysis End Tidal CO2 Analysis Min (bpm) Max (bpm) Average (bpm) TSP (mins) % of TSP Awake 42 281 84 Above 55 mmHg 312.3 85.8 NREM 38 237 80 50-55 mmHg 24.3 6.7 REM 60 127 84 45-50 mmHg 16.2 4.5 Overall 38 237 80 40-45 mmHg 8.3 2.3 35-40 mmHg 2.3 0.6 30-35 mmHg 0.4 0.1 Average ETCO2 0.0 Supplemental O2 Values Minimum O2 level: None Value Start Time End Time Lift Mechanic Comments PSG Study Mr. Dietrich slept in the right, left, and supine positions. No cardiac arrhythmia or PLM's noted. No bruxism noted. Snoring was noted and scored as a 2 on a scale of 1 through 5. (0=no snoring, 5=snoring loud enough to be heard through a closed door or down the daugherty way) Mr. Dietrich awoke to use the restroom one time during the night. Mr. Dietrich stated, I did not sleep as well as I do when I am in my own bed. The final report will be interpreted and signed by a sleep physician. The completed physician report will then be placed in the patient medical record. Pt. had very low oxygen saturations and 2 liters of 02 was during this study, Pt. was restless during the study, had a hard time getting his breath, he raised the head of the bed at 40-degree angle. Therapy (cm H2O) 0 TIB (min.) 451.0 TST (min.) 364.0 Sleep Onset (min.) 37.0 REM Onset From Sleep (min.) 289.5 Sleep Efficiency % 81 Wakefulness (%) 19 Wakefulness (min.) 87.0 NREM 1 (%) 2 NREM 1 (min.) 6.5 NREM 2 (%) 89 NREM 2 (min.) 325.5 NREM 3 (%) 0 NREM 3 (min.) 0.0 REM (%) 9 REM (min.) 32.0 # Arousals 287 Arousal Index 47 # Snore 473 Snore Index 78.0 AHI 6.1 AHI Supine 8 AHI Non-Supine 4 NREM AHI 6.3 REM AHI 3.8 RDI 6.1 # Obstructive Apnea 0 # Central Apnea 0 # Mixed Apnea 0 # Hypopneas 36 RERAs 0 Total Respiratory Events 38 Time Below SpO2 89% (min.) 314.4 Mean NREM SpO2 (%) 85 Mean REM SpO2 (%) 87 Mean Sleep SpO2 (%) 85 Min NREM SpO2 (%) 77 Min REM SpO2 (%) 83 Position Supine (min.) 261.2 Position Non-supine (min.) 174.3 LM Index Sleep 50.1 LM Index NREM 52.8 LM Index REM 22.5 Mean Heart Rate (bpm) 80 Min Heart Rate (bpm) 38
--- NOTE | 2016-09-25 12:18 | POLYSOMNOGRAPH REPORT ---
DATE OF STUDY: 09/22/2016. REFERRING PHYSICIAN: Kenton Christianson. CLINICAL DATA: The patient is a 56-year-old male who was hospitalized recently with respiratory failure. He had congestive heart failure. He was thought to likely have sleep apnea. He has symptoms of disturbed nocturnal sleep and excessive daytime somnolence. His BMI is elevated at 42.53. This was an in-lab diagnostic sleep study. SLEEP ARCHITECTURE: The total sleep period was 414 minutes. The total sleep time was 364 minutes. The sleep efficiency was modestly reduced to 81%. The sleep latency was prolonged to 37 minutes. Wake after sleep onset was 51 minutes. The REM latency was severely prolonged to 289.5 minutes. Sleep consisted of stage N1 2%, stage N2 89%, stage N3 0%, and stage REM 9%. AROUSAL DATA: The patient had a total of 287 arousals including 216 spontaneous arousals, 17 respiratory arousals, 27 PLM arousals, and 28 snoring arousals. The arousal index is severely elevated at 47. PLM DATA: The patient had 304 periodic limb movements for an index of 50.1. There were 27 limb movements associated with arousals for a PLM arousal index of 4.5. EKG: The underlying cardiac rhythm was normal sinus. The cardiac rates generally range between 38 and 90 beats per minute. The average heart rate was 80 beats per minute. He had a mild number of PVCs during the night. RESPIRATORY DATA: The patient had a total of 37 respiratory events including 36 hypopneas and 1 central hypopnea. Hypopneas were scored by the 4% desaturation rule. The apnea hypopnea index is mildly elevated at 6.1 events per hour. This would be compatible with mild sleep apnea. It is notable that his end tidal CO2 was above 55 for the majority of the night and the highest was approximately 87. This would be significantly abnormal. The mean duration of the hypopneas was 20.9 seconds. OXIMETRY DATA: The average saturation was 85%. The minimum saturation was 73%. He had 387.5 minutes with saturations less than 89%. This is despite the fact the patient was wearing 2 liters of oxygen throughout the night. FORKLIFT DRIVER COMMENTS: Mr. Dietrich slept in the right, left, and supine positions. PLMs were noted. No bruxism noted. Snoring was noted and scored as a 2 on a scale of 1 through 5. IMPRESSIONS: 1. Obstructive sleep apnea -- mild. 2. Periodic limb movement disorder. 3. Occasional premature ventricular contractions. COMMENTS: The patient has mild sleep apnea. However, he has severe hypoxia and it is suggested that he has significant elevation of carbon dioxide based upon the end tidal CO2 recordings. The patient was known to have a high pCO2 when he was hospitalized recently. He has frequent periodic limb movements. However, the sleep apnea should be treated first. Although his apnea hypopnea index is only mildly elevated, with his history of respiratory failure and congestive heart failure he is clearly a candidate for treatment. He also is known to have hypertension. He had increased spontaneous arousals. This may well be seen with upper airways resistance. RECOMMENDATIONS: 1. It is advised that the patient be treated with nasal CPAP or BiPAP. BiPAP would be preferred with his history of respiratory failure and his significant elevation of carbon dioxide. Considerations would be with a titration study versus treatment with an auto BiPAP. 2. Consideration is given to having an arterial blood gas done in light of the end tidal CO2 results. 3. Weight reduction is advised in light of the elevation of his body mass index at 42.53. 4. If possible, the patient should avoid sleeping in the supine position. He did spend more than half of this sleep study night supine. [facility]
== END | disposition home or self-care (01) ==
LOC: C.NEUR 20:00
PROVIDERS: ATTEND Physician Assistant
DX: J96.22 Acute and chronic respiratory failure with hypercapnia (principal); J96.21 Acute and chronic respiratory failure with hypoxia; I27.81 Cor pulmonale (chronic); I27.2 Other secondary pulmonary hypertension; G47.33 Obstructive sleep apnea (adult) (pediatric); G47.61 Periodic limb movement disorder; I49.3 Ventricular premature depolarization

== ENCOUNTER → 2016-10-11 | Day surgery (SDC) | payer BC ==
[~2016-10-11] VITALS: Ht 180.3 cm; Wt 137.0 kg
[~2016-10-11] MED LIST changes: +ACETAMINOPHEN 325 MG TAB PO PRN; +ATROPINE SULFATE 0.1 MG/ML 5ML SYR IV PRN; +DIAZEPAM 5MG TAB ONE; +FENTANYL CITRATE INJ 50 MCG/1 ML 2 ML VIAL ONE; +MIDAZOLAM HCL 1 MG/ML 2ML VIAL ONE; +ONDANSETRON INJ 2 MG/ML 2 ML VIAL IV PRN; +SODIUM CHLORIDE 0.9% 1000ML 1,000 ML IV SCH; +SODIUM CHLORIDE 0.9% 1000ML 250 ML IV PRN
[2016-10-11 08:00] VITALS: BP 164/98; PULSE 82; TEMP 36.5; O2SAT 95; Ht 180.3 cm; Wt 137.0 kg
--- NOTE | 2016-10-11 09:20 | History and Physical ---
History General Date of Service: Oct 11, 2016. Chief Complaint: SOB Stated Complaint: Left And Right , Abnormal Stress Echo, R Ventricular failure. This is a 55 year old male with a history of COPD, Cor Pulmonale Obesity and sleep apnea. Pt has continuous SOB with activity. Limited stress ECHO. Here for RT and LT hearrt cath. History of Present Illness The patient is a 56 year old male who presents to [facility] with complaints of Left And Right , Abnormal Stress Echo, R Ventricular failure. The patient's primary care provider is Kenton Christianson III, M.D.. Review of Systems Constitutional: No see HPI, No fever, No chills, No sweats, No weight loss, No weakness, No fatigue, No problem reported Respiratory: + shortness of breath, + dyspnea on exertion Cardiac: No see HPI, No chest pain, No orthopnea, No PND, No edema, No claudication, No palpitations, No problem reported Abdomen: No see HPI, No pain, No nausea, No vomiting, No diarrhea, No constipation, No GI bleeding, No problem reported Male : No see HPI, No dysuria, No urinary frequency, No incontinence, No nocturia more than once/night, No slowing stream, No hematuria, No sexual dysfunction, No problem reported Neurologic: No see HPI, No memory loss, No paralysis, No weakness, No numbness/ tingling, No vertigo, No balance problems, No problem reported Heme: No see HPI, No abnormal bleeding/bruising, No clotting problems, No swollen lymph nodes, No night sweats, No problem reported Endo: No see HPI, No fatigue, No excessive thirst, No excessive urination, No problem reported Skin: No see HPI, No rash, No itch, No new/changing skin lesions, No color change, No bleeding, No problem reported Family History FH: cancer MOTHER ( of lung CA age 65) Hypertension MOTHER Social History Smoking Status: Current Every Day Smoker Drug Use: none Marital Status: Occupation Status: employed Immunizations History of Influenza Vaccine: No History of Tetanus Vaccine?: Yes Tetanus Immunization Date: May 13, 2009 History of Pneumococcal: No History of Hepatitis B Vaccine: No History of MDRO History of MDRO: No Allergies Coded Allergies: No Known Allergies (Unverified , 12/22/09) Current Home Medications Reported Home Medications Medications Dose Route/Sig Max Daily Dose Days Date Category Dose Instructions Toprol-Xl (Metoprolol Succinate) 50 Mg Tabcr 1 Tab PO BID 30 10/11/16 Reported Chantix (Varenicline Tartrate) 1 Charlie Charlie PO UD 28 10/11/16 Reported Bupropion Hcl Xl (Bupropion Hcl) 150 Mg Tab 1 Tab PO QAM 30 10/11/16 Reported Furosemide 40 Mg Tab 40 Mg PO BID 08/18/16 Rx Aspirin EC Low Dose (Aspirin) 81 Mg Ectab 81 Mg PO QAM 08/18/16 Rx Losartan Potassium 50 Mg Tab 50 Mg PO QAM 08/18/16 Rx Oxygen Gas 1 Liter NA UD 08/18/16 Rx Dx: chronic hypoxic respiratory failure, nocturnal hypoxia 2 LPM by nasal cannula continuously + supplies + portable equipment Ultram (Tramadol HCl) 50 Mg Tab 50 Mg PO Q6H PRN 08/11/16 Reported Multivitamin (Multivitamins) Tab 1 Tab PO QAM 12/22/09 Reported Physical Exam Date Time Temp Pulse Resp B/P (MAP) Pulse Ox O2 Delivery O2 Flow Rate FiO2 10/11/16 08:00 36.5 82 16 164/98 95 Room Air Weight in Kilograms: 137 Head: normocephalic ENMT: normal ENT inspection Neck: supple, trachea midline, no masses Lungs: Auscultation: breath sounds normal, no wheezing, no rales/crackles Cardiovascular: Heart Auscultation: RRR, normal S1, normal S2 Peripheral Pulses: Carotid Pulse: normal on the left, normal on the right Radial Pulse: normal on the left, normal on the right Femoral Pulse: normal on the left, normal on the right Abdomen: Bowel Sounds: normal Inspection & Palpation: soft, non-distended Liver: non-tender Musculoskeletal: normal Extremities: no cyanosis, no edema, no varicosities Neurologic: Gait & Station: normal gait Cranial Nerves: grossly intact Sensation: grossly intact Impression Assessment and Plan Here for RT and LT heart cath. Risk ,benefit and intent of procedure explained. Pt. willing to proceed.
[2016-10-11 11:11] LABS: ISTAT ARTERIAL BLOOD GAS HCO3 37 meq/L (19-24); ISTAT ARTERIAL BLOOD GAS HCO3 38 meq/L (19-24); ISTAT ARTERIAL BLOOD GAS PCO2 64 mmHg (35-46); ISTAT ARTERIAL BLOOD GAS PCO2 71 mmHg (35-46); ISTAT ARTERIAL BLOOD GAS PO2 76 mmHg (80-95); ISTAT ARTERIAL BLOOD GAS PO2 85 mmHg (80-95); ISTAT ARTERIAL BLOOD GAS pH 7.34 (7.35-7.45); ISTAT ARTERIAL BLOOD GAS pH 7.37 (7.35-7.45); ISTAT CARBON DIOXIDE 39 mEq/l (24-31); ISTAT CARBON DIOXIDE > 40 mEq/l (24-31)
[2016-10-11 11:11] LABS: ISTAT ARTERIAL BLOOD GAS HCO3 41 meq/L (19-24); ISTAT ARTERIAL BLOOD GAS PCO2 77 mmHg (35-46); ISTAT ARTERIAL BLOOD GAS PO2 < 32 mmHg (80-95); ISTAT ARTERIAL BLOOD GAS pH 7.33 (7.35-7.45); ISTAT CARBON DIOXIDE > 40 mEq/l (24-31)
[2016-10-11 11:11] LABS: ISTAT ARTERIAL BLOOD GAS HCO3 39 meq/L (19-24); ISTAT ARTERIAL BLOOD GAS PCO2 72 mmHg (35-46); ISTAT ARTERIAL BLOOD GAS PO2 33 mmHg (80-95); ISTAT ARTERIAL BLOOD GAS pH 7.34 (7.35-7.45); ISTAT CARBON DIOXIDE > 40 mEq/l (24-31)
--- NOTE | 2016-10-11 11:52 | Cardiac Catheterization ---
Procedure Note Procedure Date Oct 11, 2016. Pre-Procedure Diagnosis Positive Stress Test, Cardiomyopathy, Cardiothoracic Symptom AUC Score 7 Post-Procedure Diagnosis Normal Coronary Arteries Procedure(s) Performed Coronary Angiography, Left Heart Cath, Right Heart Cath, LV Angiography Guest Relation Officer Dr. Calles Tub Tender(s) None Estimated Blood Loss None Medication(s) Versed, Lidocaine 1%, Diazepam Summary of Findings Normal Coronaries. Moderate Pulmonary Hypertension Hemodynamics Rest Ao: 129/78 Final Ao: 131/82 LV: 108/24 RA: 10 RV: 45/7 PA: 46/18 PW: 14 Recommendations Medical therapy and/or Counseling Specimens None Radiation Exposure (mGy) 1469 Contrast (mls) 128 Fluids (cc crystalloids) 90 Procedural Complication(s) None Disposition Body Care Manager Holding/Recovery ACC Data Cardiac Status Clinical evaluation leading to the procedure CAD Presntation: Positive Stress Test Anginal Classification: CCS II Heart Failure: No Cardiogenic Shock w/in 24Hrs: No Cardiac Arrest w/in 24Hrs: No Imaging studies past 6 months: Yes Stress studies past 6 months: Yes Stress Echocardiogram: Yes - Indeterminant Coronary Anatomy Dominant: Co-dominant Left Main (% Stenosis): Normal LAD (% Stenosis): Normal Circumflex (% Stenosis): Normal RCA (% Stenosis): Normal Left Ventricular Angiography EF (%): 60 Mitral Regurgitation: None Diagnostic Status: Elective Closure Device Percutaneous Entry Location: Femoral Closure Device: Mynx Recommendations: Medical therapy and/or Counseling
--- NOTE | 2016-10-11 11:58 | Discharge Instructions ---
Discharge Instructions Procedure Procedure Date: Oct 11, 2016. Reason for Visit: Left And Right , Abnormal Stress Echo, R Ventricul. Discharge Discharge Date: Oct 11, 2016. Discharge Diagnosis: COPD and Pulmonary HPT Last Recorded Wt (Kilograms): 137 Anesthesia Post Anesthesia Instructions: If you have had General Anesthesia or IV Sedation: * Do not drive today. * Resume driving when surgeon permits. * Do not make important decisions or sign legal documents today. * Call surgeon for: 1. Temperature elevations greater than 101 degrees F. 2. Uncontrollable pain. 3. Excessive bleeding. 4. Persistent nausea and vomiting. 5. Medication intolerance (nausea, vomiting or rash). * For nausea and vomiting use only clear liquids such as: tea, soda, bouillon until nausea subsides, then gradually increase diet as tolerated. * If you have any concerns or questions, call your surgeon's office. If physician is unavailable and it is an emergency, call 911 or go to the nearest emergency room. Instructions Activity Recommendations: limitations Recommended Home Diet: resume previous diet Allergies: Coded Allergies: No Known Allergies (Unverified , 12/22/09) Provider Instructions ACTIVITY RECOMMENDATIONS: It is common to feel weak and fatigue for a few days. * Do not drive or operate any motorized equipment for the next three days. * Limit stair usage (2 or 3 trips a day only) for the next three days. * Do not lift anything heavier than 10 pounds for the next three days. * Do not engage in vigorous exercise or any sports for the next five days. * You may shower the day after your procedure, but do not immerse the area for three days. Cleanse the site gently with soap and water. SPECIAL CARE INSTRUCTIONS: * You may replace the pressure dressing or band-aid the morning after the procedure. * After your procedure, it is normal to have a small bruise or small lump at the site. Examine your site daily for any change in the bruise or lump, redness, swelling, drainage or numbness. Notify your doctor if any change. BLEEDING: * If there is a small amount of bleeding at the site, lie down and apply firm pressure with a clean cloth for ten minutes. When the bleeding stops, lie quietly keeping the procedure limb straight for six hours. Notify your doctor as soon as possible. * If the bleeding does not stop after ten minutes or if there is a large amount of bleeding or spurting, call 911 immediately. Continue to lie down and hold firm pressure until help arrives. SKIN IRRITATION: * You may experience some redness and/or swelling in the area where radiation was administered. If any skin irritation occurs, please contact your family physician. FOLLOW UP VISIT: Keep any scheduled doctor appointments. Follow Up Mario Vega Recommendations: Call your doctor if: * Temperature above 101 degrees * Pain not relieved by pain medicine ordered * There is increased drainage or redness from any incision * You have any unanswered questions or concerns. Your Doctors Instructions noted above were prepared by provider Lico Calles. Patient Signature Section: Patient Instructions Signature Page Surinder Dietrich Patient (or Guardian) Signature/Date: I have read and understand the instructions given to me by my caregivers. Caregiver/RN/Doctor Signature/Date: The above-named patient and/or guardian has received patient instructions on this date. + Original Patient Signature Page (only) stays with chart. Please make copy for patient.
[2016-10-11 15:00] VITALS: BP 148/56; PULSE 77; O2SAT 98
== END | disposition home or self-care (01) ==
LOC: C.CATH 07:05
PROVIDERS: ATTEND Internal Medicine Interventional Cardiology
DX: R06.02 Shortness of breath (principal); J44.9 Chronic obstructive pulmonary disease, unspecified; E66.9 Obesity, unspecified; Z82.49 Family history of ischemic heart disease and other diseases of the circulatory system; Z80.1 Family history of malignant neoplasm of trachea, bronchus and lung; F17.200 Nicotine dependence, unspecified, uncomplicated

== ENCOUNTER → 2016-10-14 | Outpatient (CLI) | payer BC ==
[~2016-10-14] MED LIST changes: -ACETAMINOPHEN 325 MG TAB PO PRN; -ATROPINE SULFATE 0.1 MG/ML 5ML SYR IV PRN; -DIAZEPAM 5MG TAB ONE; -FENTANYL CITRATE INJ 50 MCG/1 ML 2 ML VIAL ONE; -MIDAZOLAM HCL 1 MG/ML 2ML VIAL ONE; -ONDANSETRON INJ 2 MG/ML 2 ML VIAL IV PRN; -SODIUM CHLORIDE 0.9% 1000ML 1,000 ML IV SCH; -SODIUM CHLORIDE 0.9% 1000ML 250 ML IV PRN; -TPRSR50 PO
--- NOTE | 2016-10-15 07:44 | PAP/PSG TECHNICIAN REPORT ---
[facility] Captain Waiter Polysomnogram Report Study name: None Report date: 10/15/2016 Study date: 10/14/2016 Referring Physician: Kenton Stewart M.D. Name: GURMEET DIETRICH Interpreting Physician: Lynette Harvey PA-C. Date of : 1960 Captain Waiter: Domenica Hoffmann, PSGT. Sex: Male Age: 56 StudyType: PSG Weight: 305 lbs Height: 56 years, Height 5' 11" BMI: 42.53 Medications: ASPIRIN 81 MG, FUROSEMIDE 40 MG, LOSARTAN 50 MG, METOPROLOL ER 50 MG, TRAMADOL 50 MG, WELLBUTRIN XL 150 MG. Patient History 56 YR. OLD MALE IN ROOM #7, PRESENTS TONIGHT FOR A TITRATION BI-PAP SLEEP STUDY. PT. HAD A BASELINE DON AND HAAD AN AHI OF 6.1, HE HAS A HX OF RESPIRATORY FAILURE, PT. USES TWO LITERS OF OXYGEN AT NIGHT ONLY. Parameters Monitored NPSG: E1-M2, E2-M1, Fp1-M2, Fp2-M1, F3-M2, F4-M2, F4-M1, C3-M2, C4-M2, C4-M1, O1-M2, O2-M2, O2-M1, T3-M2, T4-M1, P3-M2, P4-M1, CHIN1, CHIN2, HR, EKG, Legs, PFLOW, SNOR, FLOW, CFLOW, Tidal Volume, THOR, ABDO, SpO2, PLTH, CPRESS, ETCO2 Wave, ETCO2, pH Sleep Architecture Sleep Stages Time at Lights Off 9:53:37 PM STAGES Time (min.) TST (%) Time at Lights On 5:07:37 AM Wake 76.0 -- Total Recording Time (TRT) 435.00 min. N1 5.5 2 Total Sleep Period (TSP) 394.5 min. N2 214.0 60 Total Sleep Time (TST) 358.0min. N3 46.5 13 Awake Time 77.0 min. REM 92.0 26 Wake after Sleep Onset 45.0 min. Sleep Efficiency (SE) 82 % Sleep Onset Latency (YADIRA) 31.0 min. Number of Stage 1 Shifts None Awakenings 10 Stage Changes 38 Number of REM periods 10 REM 92.0 26 REM Latency 9.0 min. NREM 266.0 74 Body Position Analysis Supine Right Left Side Prone Vertical Total Sleep Time (min.) 305.6 57.3 38.2 95.50 0.0 0.0 Total Sleep Time (%) 73% 16% 11% 27 0% N/A% Total Sleep Time REM (min.) 50.5 4.5 37.0 None 0.0 0.0 Total Sleep Time NREM (min.) 212.0 52.8 1.2 None 0.0 0.0 Intermittent Wake (min.) 43.1 8.5 24.4 None 0.0 0.0 Total Sleep Period (%) 70% None None None None None Arousals Myoclonus (PLM) * Events Count Index Events Count Index Spontaneous 17 3 Events Awake (PLMW) 3 2.4 Respiratory 1 0.2 Events Asleep w/ Arousal (PLMA) 10 1.7 PLM 10 2 Events Asleep w/o Arousal (PLMS) 274 45.9 Snoring 2 0 Total Asleep 284 47.6 Total 30 5 Total 287 40 Respiratory Analysis * CA OA MA CH H RERA Total Count 0 0 0 0 6 5 6 Index 0.0 0.0 0.0 0 1.0 1 1.8 Mean Duration 0.0 0.0 0.0 0.00 12.6 9.9 11.4 Longest Duration 0.0 0.0 0.0 0.00 0.0 18.9 18.9 Respiratory Event Summary Total Supine ~Supine Right Left Prone REM NREM Apneas Count 0 0 0 0 0 N/A 0 0 Index 0.0 0 0 0.0 0.0 N/A 0 0 Hypopneas (4% Desat) Count 6 6 0 0 0 N/A 1 5 Index 1.0 1.4 0 0.0 0.0 N/A 0.7 1.1 Apneas & All Hypopneas Count 6 6 0 0 0 N/A 1 5 Index 1.0 1 0 0 0 N/A 0.7 1.1 Respiratory Events (Student Driving Instructor+All Hyp+RERA) Count 6 11 0 0 0 N/A 1 5 Index 1.8 3 0 0.0 0.0 N/A 3.9 1.1 Respiratory Related Arousal Count 1 11 0 0 0 N/A 0 1 Index 0.2 0 0 0 0 N/A 0 0 Snoring Analysis Supine Right Left Prone REM NREM Total Snore duration 2.7 min Snores count 136 2 1 N/A 3 136 139 Snore mean duration 1.2 Sec Snores index 31 2 2 N/A 2.0 30.7 23.3 TST with snoring (%) 0.8% Desaturation Event Summary: Minimum %SpO2 Event Count Mean/Min/Max Duration(sec.) Desaturation Index % Time In Bed > 90 2 13.4 / 12.5 / 14.3 16.7 1.7 86 - 90 20 31.8 / 7.5 / 60.0 6.2 45.3 81 - 85 16 26.8 / 7.5 / 54.0 5.0 44.6 76 - 80 11 21.3 / 8.0 / 45.3 19.0 8.1 71 - 75 0 N/A 0.0 0.3 66 - 70 0 N/A 0.0 0.0 61 - 65 0 N/A 0.0 0.0 56 - 60 0 N/A 0.0 0.0 51 - 55 0 N/A 0.0 0.0 < 50 0 N/A 0.0 0.0 Total REM NREM Awake <50% 0.0 min. 0.0 min. 0.0 min. 0.0 min. 51 - 60% 0.0 min. 0.0 min. 0.0 min. 0.0 min. 61 - 70% 0.0 min. 0.0 min. 0.0 min. 0.0 min. 71 - 80% 36.1 min. 30.2 min. 1.1 min. 4.8 min. 81 - 90% 386.2 min. 61.4 min. 261.9 min. 62.9 min. 91 - 100% 7.2 min. 0.0 min. 0.4 min. 6.7 min. Average 85 82 86 86 Minimum SpO2 71 75 77 71 Desaturation Event Index 5.1 13.0 3.8 0.0 # Desat. Events below 89% 37 20 17 0 Time(%) with Saturation below 89% 95.2 21.2 60.3 13.7 Time(min.) with Saturation below 89% 408.7 91.1 258.9 58.7 Heart Rate Analysis End Tidal CO2 Analysis Min (bpm) Max (bpm) Average (bpm) TSP (mins) % of TSP Awake 46 265 88 Above 55 mmHg 0.0 0.0 NREM 45 237 88 50-55 mmHg 0.0 0.0 REM 68 100 89 45-50 mmHg 358.0 100.0 Overall 45 237 88 40-45 mmHg 0.0 0.0 35-40 mmHg 0.0 0.0 30-35 mmHg 0.0 0.0 Average ETCO2 0.0 Supplemental O2 Values Minimum O2 level: None Value Start Time End Time Captain Waiter Comments Bi-Level Study: slept in the right, left, and supine positions. No cardiac arrhythmia or PLM's noted. No bruxism noted. PAP initiated at an IPAP of +4 CMH2O and an EPAP of +8 CMH2O up-titrated to an optimal level of: IPAP +10 CMH2O, EPAP + 4 CM H20 which nearly eliminated all respiratory events and snoring. A Large Res Med Mirage Quattro, was used during titration awoke to use the restroom zero times during the night. Mr. Dietrich stated, I did not sleep as well as I do when I am in my own bed". The final report will be interpreted and signed by a sleep physician. The completed physician report will then be placed in the patient medical record. 4 liters of oxygen was added throughout the night.1 liter @ 10:15,pm 1 liter @ 10:46,pm 1 liter @ 1:12 am, 1 liter @ 3:46 am Therapy Event: Therapy (cm H20) 11/12 12/13 01/12 Total Time at Pressure (min.) 46.1 93.0 294.9 TST at Pressure (min.) 15.1 89.0 253.9 # Periods 1 1 1 Sleep Onset (min.) 31.0 0.0 0.0 REM Onset (min.) 40.0 0.0 31.4 Sleep Efficiency % 32 95 86 Wakefulness (%) 67.2 4.3 13.9 Wakefulness (min.) 31.0 4.0 41.0 NREM 1 (%) 2.2 0.0 1.5 NREM 1 (min.) 1.0 0.0 4.5 NREM 2 (%) 17.3 38.8 57.6 NREM 2 (min.) 8.0 36.1 169.9 NREM 3 (%) 0.0 30.7 6.1 NREM 3 (min.) 0.0 28.5 18.0 REM (%) 13.3 26.2 20.9 REM (min.) 6.1 24.4 61.5 # Arousals 0 5 25 Arousal Index 0.0 3.4 5.9 # Snore 0 3 136 Snore Index 0.0 2.0 32.1 AHI 4.0 0.7 0.9 AHI Supine 4.0 0.7 1.5 AHI Non-Supine N/A N/A 0.0 NREM AHI 0.0 0.9 1.2 REM AHI 9.8 0.0 0.0 RDI 11.9 2.7 0.9 # Obstructive 0 0 0 # Central Ap 0 0 0 # Mixed 0 0 0 # Hypopneas 1 1 4 RERAS 2 3 0 Total Respiratory Events 3 4 4 Time Below SpO2 89.00% (min.) 15.1 87.2 247.7 Mean NREM SpO2 (%) 83 86 85 Mean REM SpO2 (%) 80 81 83 Mean Sleep SpO2 (%) 82 85 85 Min NREM SpO2 (%) 81 82 77 Min REM SpO2 (%) 75 75 75 Position Supine (min.) 15.1 89.0 158.4 Position Non-supine (min.) 0.0 0.0 95.5 LM Index Sleep 55.5 76.2 37.1 LM Index NREM 60.0 97.6 40.5 LM Index REM 49.0 19.7 26.3 Mean Heart Rate (bpm) 92 90 87 Min Heart Rate (bpm) 81 46 45
--- NOTE | 2016-10-20 09:30 | Sleep Study ---
Sleep Study Report Date of Service: October 14, 2016 Sleep Study Report Clinical data: 56-year-old male with mild sleep apnea with a baseline AHI of 6.1. He also has a history of respiratory failure and uses 2 liters of oxygen at night only. He is referred for a BiPAP titration study. Sleep architecture: Total sleep period was 394.5 minutes. Total sleep time was 358 minutes divided between 266 minutes of non-REM sleep and 92 minutes of REM sleep. Sleep onset latency was delayed at 31 minutes. REM latency was markedly foreshortened at 9 minutes. Sleep efficiency was 82 percent. Wake after sleep onset was 45 minutes. Sleep consisted of stage N1 2 percent, stage N2 60 percent, stage N3 13 percent, and REM 26 percent. Arousal data: 30 arousals were recorded for an index of 5 per hour. PLM data: Significantly elevated limb movements during sleep were noted. There were 284 limb movement events during sleep noted for an index of 47.6 per hour with an arousal index of 1.7 per hour. Respiratory data: The AHI was 1. There were 6 hypopneas with a mean duration of 12.6 seconds. Oximetry data: Significant nocturnal hypoxemia was seen. Oxygen kirsten was 75 percent. Mean saturation was 85 percent. EKG: Heart rates ranged from 45 to 100 beats per minute. No arrhythmias were noted. Treatment summary: The patient slept on the right, left, and supine positions. A large ResMed Mirage Quattro mask was used. The patient was started on BiPAP 8/4 and was titrated up to an optimal level of BiPAP 10/4 which eliminated all respiratory events and snoring. However hypoxemia persisted. The patient had oxygen started at 10:15 p.m. 1 liters/minute. It was eventually titrated up to a final oxygen flow rate of 4 liters/minute. Impression: Obstructive sleep apnea and nocturnal hypoxemia corrected with BiPAP 10/4 with 4 liters/minute oxygen. Recommendations: The patient should be started on the above-noted treatment regimen. He should be seen back in follow-up within 90 days to document efficacy and compliance. Copies To 1: Lynette Harvey PA-C; Kenton Christianson III, M.D.
== END | disposition home or self-care (01) ==
LOC: C.NEUR 21:00
PROVIDERS: ATTEND Physician Assistant
DX: J44.9 Chronic obstructive pulmonary disease, unspecified (principal); E87.2 Acidosis; I27.81 Cor pulmonale (chronic); G47.30 Sleep apnea, unspecified

== ENCOUNTER 2019-02-26 17:03 | Inpatient (IN) ==
[2019-02-26] MEDS ORDERED: cefTRIAXone SODIUM 1,000 MG/50 ML BAG IV STA (17:42)
[2019-02-26] MEDS ORDERED: SODIUM CHLORIDE 0.9% 1000ML 2,000 ML IV ONE (17:42)
[2019-02-26] MEDS ORDERED: ACETAMINOPHEN 500 MG TAB PO STA (17:42)
[2019-02-26] MEDS ORDERED: LEVOFLOXACIN/D5W 750 MG/150 ML BAG IV SCH (17:45)
--- NOTE | 2019-02-26 18:00 | XRay Report ---
XR chest 1V portable CLINICAL HISTORY: 58 years-old Male presenting with Sepsis. TECHNIQUE: Portable upright AP view of the chest was obtained. COMPARISON: 08/11/2016. FINDINGS: Atherosclerosis of the aortic arch. Cardiac silhouette enlarged. Persistent elevation of the right he midiaphragm. Bandlike opacities at the right lung base. Interval development of patchy mid and periph eral left lung opacities. No large effusion or pneumothorax. Degenerative changes of the thoracic spi ne. Upper abdomen normal. IMPRESSION: 1. Left mid lung pneumonia. This should be followed to resolution. 2. Cardiomegaly. 3. Chronic right hemidiaphragm paralysis with right basilar atelectasis or scarring. Electronically signed by: Indra Vasquez M.D. 02/26/2019 5:59 PM
[2019-02-26 18:07] LABS: Basophils # (auto) 0.02 K/uL (0-0.2); Basophils % (auto) 0.2 %; Hematocrit (blood only) 32.6 % (42-52); Hemoglobin 11.2 g/dL (14.0-18.0); Immature Granulocytes # (auto) 0.03 K/uL (0.00-0.02); Immature Granulocytes % (auto) 0.3 %; Lymphocytes # (auto) 1.46 K/uL (1.2-3.4); Lymphocytes % (auto) 13.5 %; Mean Corpuscular Hemoglobin 31.4 pg (25-34); Mean Corpuscular Hgb Conc 34.4 g/dL (32-36); Mean Corpuscular Volume 91.3 fL (80-100); Mean Platelet Volume 8.3 fL (7.4-10.4); Monocytes # (auto) 1.13 K/uL (0.11-0.59); Monocytes % (auto) 10.5 %; Neutrophils # (auto) 8.17 K/uL (1.4-6.5); Neutrophils % (auto) 75.5 %; Platelet Count 361 K/uL (130-400); RDW Coefficient of Variation 13.3 % (11.5-14.5); RDW Standard Deviation 44.5 fL (36.4-46.3); Red Blood Count 3.57 M/uL (4.7-6.1); White Blood Count 10.81 K/uL (4.8-10.8)
[2019-02-26 18:22] LABS: INR 1.1 (0.9-1.1); Partial Thromboplastin Ratio 1.1; Partial Thromboplastin Time 29.6 Seconds (21.0-31.0); Prothrombin Time 11.5 Seconds (9.0-12.0)
[2019-02-26 18:25] LABS: BUN Creatinine Ratio 14.5 (10-20); Calcium 9.5 mg/dl (8.5-10.1); Creatinine Clr Calc Pharmacy 96.6 ml/min; Est GFR (African American) 77.1; Est GFR (Non-African American) 66.5; Potassium 3.9 mmol/L (3.5-5.1)
[2019-02-26 18:28] LABS: Albumin Globulin Ratio 0.6 (0.9-2); Bilirubin,Total 0.8 mg/dl (0.2-1); Globulin 4.8 gm/dl (2.5-4.0); Total Protein 7.8 gm/dl (6.4-8.2)
[2019-02-26 18:45] LABS: Oxygen Saturation VBG 82.1 %; pH VBG 7.4 (7.36-7.41)
--- NOTE | 2019-02-26 20:08 | History & Physical Report ---
Date of Service February 26, 2019 Assessment & Plan (1) Pneumonia: (2) Hypoxia: -Admit to [facility] -Patient presenting from home for evaluation of malaise and generalized weakness -In the ED, found to be hypoxic on room air at 78%, this improved with oxygen 4 L via nasal cannula -CXR showing a left-sided pneumonia -Also febrile at 38.6; WBC 10.8K, no tachycardia, BP stable -S/P IV ceftriaxone and IV levofloxacin in the ED, will continue with IV levofloxacin for now -Received 1 L IVF in the ED, will give 1L additional -PRN nebs -Wean O2 as able -Check influenza swab (3) Cor pulmonale: -Does not seem volume overloaded -Hold Lasix while receiving IVF for acute illness -Monitor volume status closely (4) COPD (chronic obstructive pulmonary disease): -No wheezing on exam -will hold on steroids for now -Continue home inhalers (5) Hypertension: -BP controlled, continue amlodipine, metoprolol, and losartan (6) ROGELIO treated with BiPAP: -BiPAP as per home settings -Uses 2 L of oxygen with BiPAP at night (7) Dyslipidemia: -Continue statin (8) Depression: -Continue bupropion (9) DVT prophylaxis: -SQ Lovenox History of Present Illness Chief Complaint: Body aches, generalized weakness Primary Care Provider: [facility] 58-year-old male who presents to the ED for evaluation of body aches and generalized weakness. Patient reports he has been feeling ill for the past 1 week. Symptoms have been progressively getting worse. He reports a mild, dry productive cough. He has had a very poor appetite with some nausea. He denies any vomiting or abdominal pain. He has had some intermittent diarrhea. Denies chest pain and shortness of breath. No lightheadedness, dizziness, syncopal event. No urinary symptoms. In the ED, patient was found to be hypoxic at 78% on room air. This improved with 4 L of oxygen via nasal cannula. He was also febrile at 38.6. Other vitals are stable. Labs are mostly unremarkable. CXR shows left-sided pneumonia. Patient was given Tylenol, IVF, IV ceftriaxone, IV levofloxacin. Allergies Allergy/AdvReac Type Severity Reaction Status Date / Time No Known Allergies Allergy Verified 02/26/19 18:51 Home Medications Home Medications Medication Instructions Recorded Confirmed Type amlodipine 10 mg PO QAM 02/26/19 02/26/19 History aspirin 81 mg PO QAM 02/26/19 02/26/19 History bupropion HCl 150 mg PO BID 02/26/19 02/26/19 History fluticasone furoate-vilanterol 1 inh INHALATION DAILY 02/26/19 02/26/19 History [Breo Ellipta] furosemide 40 mg PO BID 02/26/19 02/26/19 History losartan 100 mg PO QAM 02/26/19 02/26/19 History metoprolol tartrate 50 mg PO BID 02/26/19 02/26/19 History multivitamin with minerals 1 tab PO QAM 02/26/19 02/26/19 History rosuvastatin [Crestor] 10 mg PO QAM 02/26/19 02/26/19 History tramadol 50 mg PO Q6H PRN 02/26/19 02/26/19 History Past Med/Surg History Medical History Chronic respiratory failure with hypoxia and hypercapnia (Chronic) Cirrhosis of liver (Chronic) "suspected on CTA chest [facility] 08/11/16" COPD (chronic obstructive pulmonary disease) Cor pulmonale Depression (Chronic) Dyslipidemia Hypertension (Chronic) ROGELIO treated with BiPAP Testicular hypofunction (Chronic) Tobacco use disorder (Chronic) Surgical History H/O endoscopic sinus surgery (Chronic) Family History Mother Lung cancer Hypertension Social History 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 Beliefs That Will Affect Care: None Current Living Situation: Alone Other Information That Helps Us Care for You: No Feels Safe at Home: Yes Safety Concerns: Feels Safe At This Time Smoking Status: Former smoker Tobacco Type: cigarettes ; Do You Dip or Chew Tobacco: No ; Hx Alcohol Use: Yes Alcohol type: beer Alcohol Intake Frequency: Weekly Alcohol Intake Frequency Comment: 4-6 beers/day 4 times per week Hx Substance Use: No Review of Systems Review of Systems: ROS per HPI, all other systems reviewed and negative Physical Exam Constitutional: WD/WN, vitals as above + obese Eyes: PERRL, conjunctivae normal, anicteric sclerae ENMT: external ear and nose normal, oropharynx normal Respiratory: normal respiratory effort; no respiratory distress Auscultation: + diminished lung sounds (Bilateral bases); no crackles, no rhonchi and no wheezes Cardiovascular: Rate/Rhythm: regular rate and regular rhythm Vessels: normal peripheral pulses Extremities: no edema Gastrointestinal (Abdomen): normal bowel sounds, soft, nontender, no hepatosplenomegaly Musculoskeletal: no cyanosis or clubbing, extremities motor strength 5/5 Skin: no rashes Forehead diaphoretic Neurologic: PERRL, EOMI, accommodation nl, no face palsy, no dysarthria Psychiatric: A+Ox3, euthymic affect Results & Data Vital Signs (Past 12 Hours) Vital Signs Temp Pulse Pulse Resp BP BP Pulse Ox 02/26/19 19:15 67 95 02/26/19 19:00 66 95 02/26/19 18:29 73 12 125/65 97 02/26/19 18:27 68 125/65 95 02/26/19 17:55 94 02/26/19 17:30 38.6 C H 82 20 137/68 78 L Laboratory Results Short CBC 02/26/19 Range/Units 17:51 WBC 10.81 H (4.8-10.8) K/uL Hgb 11.2 L (14.0-18.0) g/dL Hct 32.6 L (42-52) % Plt Count 361 (130-400) K/uL BMP 02/26/19 17:51 Sodium 133 L Potassium 3.9 Chloride 98 Carbon Dioxide 28 BUN 18 Creatinine 1.21 Glucose 125 H Calcium 9.5 Liver Function 02/26/19 Range/Units 17:51 Total Bilirubin 0.8 (0.2-1) mg/dl AST 53 H (15-37) U/L ALT 86 H (12-78) U/L Alkaline Phosphatase 88 (45-117) U/L Albumin 3.0 L (3.4-5.0) gm/dl Diagnostic Findings CXR IMPRESSION: 1. Left mid lung pneumonia. This should be followed to resolution. 2. Cardiomegaly. 3. Chronic right hemidiaphragm paralysis with right basilar atelectasis or scarring. Code Status & VTE Plan Code Status Patient is a DNR as per my discussion with him. VTE Prophylaxis Plan VTE Prophylaxis will be ordered: Yes Supervising Physician Co-Signing Physician Notes Care coordinated with Deonna ALFONSO. Agree with above note. Patient seen and examined. Please refer to her notes for full details. Vital signs reviewed. Physical exam: General exam: Alert and oriented. Not in acute distress. CVS: S1 and S2 heard, regular rate and rhythm, no murmurs. RS: Clear to auscultation, no wheezing or crackles. ABD: Soft, bowel sounds present, nontender, no distention. CODING SUPPORT SPECIALIST: Nonfocal. EXT: No edema, no erythema. Labs: Reviewed. Assessment and plan: 7M with hx of copd, cor pulmonale , rogelio, hx of tobacco abuse presents about a week feeling generalized weakness, body aches, poor appetite amd i ER was hypoxic on room air and had temp spike and cxtr showed left lung pneumonia. Left lung Pneumonia Hypoxia iv levaquin, fluids follow cx oxygen nebs cor pulonale holding lasix on fluids monitor for volume overload. Other diagnosis and plan of care as per NATY Goodson. Eros vicente MD.
[2019-02-26] MEDS ORDERED: TRAMADOL HCL 50 MG TABLET PO PRN (20:27)
[2019-02-26] MEDS ORDERED: ALBUT/IPRATROP 3MG/0.5MG NEB 3 ML VIAL NEB PRN (20:27)
[2019-02-26] MEDS ORDERED: ACETAMINOPHEN 325 MG TAB PO PRN (20:27)
[2019-02-26] MEDS ORDERED: SODIUM CHLORIDE 0.9% 1000ML 1,000 ML IV SCH (20:27)
[2019-02-26 20:44] LABS: Influenza A virus by PCR Neg for Influ A (Neg); Influenza B virus by PCR Neg for Influ B (Neg)
[2019-02-26] MEDS: BuPROPion SR 150 MG TABCR PO SCH ×2 (21:06→21:11)
[2019-02-26] MEDS: METOPROLOL TARTRATE 50 MG TAB PO SCH (21:08)
[2019-02-26] MEDS: ENOXAPARIN INJ 40 MG/0.4 ML SYR SQ SCH (21:10)
--- NOTE | 2019-02-26 23:09 | Emergency Department Note ---
Entered by Jaonne Fisher acting as a scribe for Mervin Duarte DO History of Present Illness General Chief complaint: Flu Like Symptoms Stated complaint: FLU SYMPTOMS Source: patient History of Present Illness Onset (ago): week(s) 1 Location: chest (generalized flu-like symptoms ) Pain Consistency: + constant Maximum Pain Intensity: 10 Associated symptoms: + denies other symptoms (rhinorrhea, sore throat, abdominal pain), + cough (mild, dry, no sputum ), + shortness of breath, + weakness (muscles (now resolved) ) and + other (tiredness, ) The patient is a 58 year old male who presents to the Emergency Room with complaints of flu like symptoms. The patient reports that 1 week ago he began experiencing symptoms of tiredness, mild dry cough (no sputum), and muscle weakness (now resolved). He states that his cough has worsened since onset and that 4 days ago he began to experience TALA, nausea, diarrhea (3-4x per day), and decreased fluid intake. He states he has been taking cough suppressants for relief. Additionally, the patient complains of some shortness of breath and states he does not normally wear oxygen but he does use bipap at night with 2L O2. Of note, he states that he is insure if he is on blood thinners. 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 He denies rhinorrhea, sore throat, abdominal pain, history of blood clots, and recent sickness exposure. The patient offers no additional complaints at this time. Home Medications Home Medications Medication Instructions Recorded Confirmed Type amlodipine 10 mg PO QAM 02/26/19 02/26/19 History aspirin 81 mg PO QAM 02/26/19 02/26/19 History bupropion HCl 150 mg PO BID 02/26/19 02/26/19 History fluticasone furoate-vilanterol 1 inh INHALATION DAILY 02/26/19 02/26/19 History [Breo Ellipta] furosemide 40 mg PO BID 02/26/19 02/26/19 History losartan 100 mg PO QAM 02/26/19 02/26/19 History metoprolol tartrate 50 mg PO BID 02/26/19 02/26/19 History multivitamin with minerals 1 tab PO QAM 02/26/19 02/26/19 History rosuvastatin [Crestor] 10 mg PO QAM 02/26/19 02/26/19 History tramadol 50 mg PO Q6H PRN 02/26/19 02/26/19 History Allergies Allergy/AdvReac Type Severity Reaction Status Date / Time No Known Allergies Allergy Verified 02/26/19 18:51 Past Med/Surg History Medical History Chronic respiratory failure with hypoxia and hypercapnia (Chronic) Cirrhosis of liver (Chronic) "suspected on CTA chest [facility] 08/11/16" COPD (chronic obstructive pulmonary disease) Cor pulmonale Depression (Chronic) Dyslipidemia Hypertension (Chronic) ROGELIO treated with BiPAP Testicular hypofunction (Chronic) Tobacco use disorder (Chronic) Surgical History H/O endoscopic sinus surgery (Chronic) Family History Mother Lung cancer Hypertension Social History 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 and A total of 10 systems reviewed and were otherwise negative Physical Exam Vital Signs Vital Signs - 24 hr 02/26/19 17:30 02/26/19 17:55 02/26/19 18:27 Temperature 38.6 C H Temperature Source Oral Pulse Rate 82 68 Pulse Rate [Right Finger] Pulse Rate from SpO2 Sensor 56 L Respiratory Rate 20 Respiratory Effort / Characteristics Non-Labored Blood Pressure 137/68 125/65 Blood Pressure [Right Arm] Blood Pressure Mean 91 68 Blood Pressure Mean [Right Arm] Blood Pressure Position Sitting Blood Pressure Position [Right Arm] Pulse Oximetry 78 L 94 95 Oxygen Delivery Method Room Air Nasal Cannula Oxygen Flow Rate 4 Sepsis Recent Fever Within 48 Hours Yes Sepsis Action Taken by Nursing No Action Required 02/26/19 18:29 02/26/19 19:00 02/26/19 19:15 Temperature Temperature Source Pulse Rate 66 67 Pulse Rate [Right Finger] 73 Pulse Rate from SpO2 Sensor 66 63 Respiratory Rate 12 Respiratory Effort / Characteristics Blood Pressure Blood Pressure [Right Arm] 125/65 Blood Pressure Mean Blood Pressure Mean [Right Arm] 85 Blood Pressure Position Blood Pressure Position [Right Arm] Lying Pulse Oximetry 97 95 95 Oxygen Delivery Method Nasal Cannula Oxygen Flow Rate 4 Sepsis Recent Fever Within 48 Hours Sepsis Action Taken by Nursing 02/26/19 19:30 Temperature Temperature Source Pulse Rate 67 Pulse Rate [Right Finger] Pulse Rate from SpO2 Sensor 60 Respiratory Rate Respiratory Effort / Characteristics Blood Pressure Blood Pressure [Right Arm] Blood Pressure Mean Blood Pressure Mean [Right Arm] Blood Pressure Position Blood Pressure Position [Right Arm] Pulse Oximetry 94 Oxygen Delivery Method Oxygen Flow Rate Sepsis Recent Fever Within 48 Hours Sepsis Action Taken by Nursing GENERAL: alert, well nourished, sitting on edge of bed, hoarse voice, mild distress, on nasal canula EYE EXAM: normal conjunctiva OROPHARYNX: no exudate, no erythema, lips, buccal mucosa, and tongue normal and mucous membranes are moist NECK: supple, no nuchal rigidity, no adenopathy, non-tender LUNGS: Diminished bilateral bases. Normal chest wall mechanics HEART: no murmurs, S1 normal and S2 normal ABDOMEN: abdomen soft, non-tender, normo-active bowel sounds, no masses, no rebound or guarding. BACK: Back is symmetrical on inspection and there is no deformity, no midline tenderness, no CVA tenderness. SKIN: no rashes and no bruising UPPER EXTREMITIES: upper extremities are grossly normal. LOWER EXTREMITIES: No pitting edema. Calves equal bilaterally. NEURO EXAM: Normal sensorium, cranial nerves II-XII grossly intact, normal speech, no gross weakness of arms, no gross weakness of legs. Course Course ED COURSE: Vital signs were reviewed and showed hypotension. The patients medical record was reviewed The above diagnostic studies were performed and reviewed. ED treatments and interventions as stated above. 1740: The patient was evaluated in room A10. A complete history and physical examination was performed. 0: Patient was resting comfortably and significantly improved. 0: Upon reevaluation, the patient is resting.I discussed my findings with the patient and he understands and agrees with the treatment plan. Based on the patients age, coexisting illnesses, exam and lab findings the decision to treat as an inpatient was made. The patient remained stable while under my care. The patient will be evaluated for further management under the care of Dr. Navarro, [facility]. Administered Medications Bupropion HCl (Wellbutrin-Sr) 150 mg PO BID SHALINI Stop: 03/28/19 20:59 Last Admin: 02/26/19 21:11 Dose: Not Given Documented by: [id number] Enoxaparin Sodium (Lovenox) 40 mg SQ Q24H SHALINI Stop: 03/28/19 20:59 Last Admin: 02/26/19 21:10 Dose: Not Given Documented by: [id number] Sodium Chloride (Nss 1000ml) 1,000 mls @ 125 mls/hr IV .Q8H SHALINI Stop: 02/27/19 04:26 Last Admin: 02/26/19 21:06 Dose: 125 mls/hr Documented by: [id number] Metoprolol Tartrate (Lopressor) 50 mg PO BID SHALINI Stop: 03/28/19 20:59 Last Admin: 02/26/19 21:08 Dose: Not Given Documented by: [id number] Discontinued Medications Acetaminophen (Tylenol) 1,000 mg PO NOW STA Stop: 02/26/19 17:43 Last Admin: 02/26/19 18:00 Dose: 1,000 mg Documented by: [id number] Sodium Chloride (Nss 1000ml) 2,000 mls @ 999 mls/hr IV .Q2H1M ONE Stop: 02/26/19 19:42 Last Infusion: 02/26/19 19:54 Dose: 0 mls/hr Documented by: [id number] Admin: 02/26/19 18:00 Dose: 999 mls/hr Documented by: [id number] Levofloxacin/Dextrose (Levaquin/D5w) 750 mg in 150 mls @ 100 mls/hr IV Q24H SHALINI Stop: 02/28/19 17:44 Last Admin: 02/26/19 18:57 Dose: 100 mls/hr Documented by: [id number] Ceftriaxone Sodium (Rocephin) 1,000 mg in 50 mls @ 100 mls/hr IV NOW STA Stop: 02/26/19 18:11 Last Infusion: 02/26/19 18:53 Dose: 0 mls/hr Documented by: [id number] Admin: 02/26/19 18:27 Dose: 100 mls/hr Documented by: [id number] Impression & Plan Hypoxia, Pneumonia Critical Care Time Critical Care Time: Yes Total Critical Care Time: 32 I have personally spent 32 minutes of critical care time in the direct management of this patient. This includes bedside care, interpretation of diagnostic studies, and testing, discussion with consultants, patient, and fa kay members, and other required patient management activities. This 32 minutes is in excess of all separately billable procedures. Discharge Plan Visit Data *Final* Discharge Date/Time: 02/26/19 19:58 Chief Complaint: Flu Like Symptoms Stated Complaint: FLU SYMPTOMS ED Provider: Mervin Duarte Discharge Problem: Hypoxia, Pneumonia Patient Disposition: Admitted As Inpatient Discharge Instructions Interventions: ED Discharge Assessment Last Done: 02/26/19 19:58 Medical Decision Making Differential Diagnosis Differential diagnosis includes but is not limited to etiologies such as sepsis, UTI, pneumonia, metabolic, electrolyte abnormalities, cardiac sources, intracerebral event, toxicologic, neurologic, as well as others were entertained. Medical Records Attestation: I reviewed the patient's medical records. Home Medications Current Medication List: was personally reviewed by me Laboratory Data Attestation: I reviewed the patient's lab results. Result diagrams: 02/26/19 17:51 02/26/19 17:51 Lab Results 02/26/19 02/26/19 02/26/19 Range/Units 17:51 17:51 17:51 WBC 10.81 H (4.8-10.8) K/uL RBC 3.57 L (4.7-6.1) M/uL Hgb 11.2 L (14.0-18.0) g/dL Hct 32.6 L (42-52) % MCV 91.3 (80-100) fL MCH 31.4 (25-34) pg MCHC 34.4 (32-36) g/dL RDW Std Deviation 44.5 (36.4-46.3) fL RDW Coeff of Armando 13.3 (11.5-14.5) % Plt Count 361 (130-400) K/uL MPV 8.3 (7.4-10.4) fL Immature Gran % (Auto) 0.3 % Neut % (Auto) 75.5 % Lymph % (Auto) 13.5 % [place] % (Auto) 10.5 % Eos % (Auto) 0.0 % Baso % (Auto) 0.2 % Immature Gran # (Auto) 0.03 H (0.00-0.02) K/uL Neut # (Auto) 8.17 H (1.4-6.5) K/uL Lymph # (Auto) 1.46 (1.2-3.4) K/uL [place] # (Auto) 1.13 H (0.11-0.59) K/uL Eos # (Auto) 0.00 (0-0.5) K/uL Baso # (Auto) 0.02 (0-0.2) K/uL PT 11.5 (9.0-12.0) Seconds INR 1.1 (0.9-1.1) APTT 29.6 (21.0-31.0) Seconds PTT Ratio 1.1 VBG pH (7.36-7.41) VBG pCO2 (38-50) mmHg VBG pO2 mmHg VBG HCO3 mmol/L VBG O2 Saturation % VBG Base Excess mEq/L Barometric Pressure mm/Hg Sodium 133 L (136-145) mmol/L Potassium 3.9 (3.5-5.1) mmol/L Chloride 98 (98-107) mmol/L Carbon Dioxide 28 (21-32) mmol/L Anion Gap 8.0 (3-11) BUN 18 (7-18) mg/dl Creatinine 1.21 (0.6-1.4) mg/dl Est Cr Clr Drug Dosing 96.6 ml/min Est GFR ( Amer) 77.1 Est GFR (Non-Af Amer) 66.5 BUN/Creatinine Ratio 14.5 (10-20) Glucose 125 H (70-99) mg/dl Lactate (0.4-2.0) mmol/L Calcium 9.5 (8.5-10.1) mg/dl Total Bilirubin 0.8 (0.2-1) mg/dl AST 53 H (15-37) U/L ALT 86 H (12-78) U/L Alkaline Phosphatase 88 (45-117) U/L Total Protein 7.8 (6.4-8.2) gm/dl Albumin 3.0 L (3.4-5.0) gm/dl Globulin 4.8 H (2.5-4.0) gm/dl Albumin/Globulin Ratio 0.6 L (0.9-2) 02/26/19 02/26/19 Range/Units 17:53 18:25 WBC (4.8-10.8) K/uL RBC (4.7-6.1) M/uL Hgb (14.0-18.0) g/dL Hct (42-52) % MCV (80-100) fL MCH (25-34) pg MCHC (32-36) g/dL RDW Std Deviation (36.4-46.3) fL RDW Coeff of Armando (11.5-14.5) % Plt Count (130-400) K/uL MPV (7.4-10.4) fL Immature Gran % (Auto) % Neut % (Auto) % Lymph % (Auto) % [place] % (Auto) % Eos % (Auto) % Baso % (Auto) % Immature Gran # (Auto) (0.00-0.02) K/uL Neut # (Auto) (1.4-6.5) K/uL Lymph # (Auto) (1.2-3.4) K/uL [place] # (Auto) (0.11-0.59) K/uL Eos # (Auto) (0-0.5) K/uL Baso # (Auto) (0-0.2) K/uL PT (9.0-12.0) Seconds INR (0.9-1.1) APTT (21.0-31.0) Seconds PTT Ratio VBG pH 7.40 (7.36-7.41) VBG pCO2 48 (38-50) mmHg VBG pO2 48 mmHg VBG HCO3 30 mmol/L VBG O2 Saturation 82.1 % VBG Base Excess 4.0 mEq/L Barometric Pressure 725.0 mm/Hg Sodium (136-145) mmol/L Potassium (3.5-5.1) mmol/L Chloride (98-107) mmol/L Carbon Dioxide (21-32) mmol/L Anion Gap (3-11) BUN (7-18) mg/dl Creatinine (0.6-1.4) mg/dl Est Cr Clr Drug Dosing ml/min Est GFR ( Amer) Est GFR (Non-Af Amer) BUN/Creatinine Ratio (10-20) Glucose (70-99) mg/dl Lactate 0.7 (0.4-2.0) mmol/L Calcium (8.5-10.1) mg/dl Total Bilirubin (0.2-1) mg/dl AST (15-37) U/L ALT (12-78) U/L Alkaline Phosphatase (45-117) U/L Total Protein (6.4-8.2) gm/dl Albumin (3.4-5.0) gm/dl Globulin (2.5-4.0) gm/dl Albumin/Globulin Ratio (0.9-2) Imaging Data Radiologist's Impression: Radiology results as stated below per my review and the radiologist's interpretation: XR chest 1V portable CLINICAL HISTORY: 58 years-old Male presenting with Sepsis. TECHNIQUE: Portable upright AP view of the chest was obtained. COMPARISON: 08/11/2016. FINDINGS: Atherosclerosis of the aortic arch. Cardiac silhouette enlarged. Persistent elevation of the right hemidiaphragm. Bandlike opacities at the right lung base. Interval development of patchy mid and peripheral left lung opacities. No large effusion or pneumothorax. Degenerative changes of the thoracic spine. Upper abdomen normal. IMPRESSION: 1. Left mid lung pneumonia. This should be followed to resolution. 2. Cardiomegaly. 3. Chronic right hemidiaphragm paralysis with right basilar atelectasis or scarring. Electronically signed by: Indra Vasquez M.D. 02/26/2019 5:59 PM Blood Pressure Blood Pressure Findings: Low blood pressure Blood Pressure Disposition: Referred to patients primary care provider [facility] Narrative Patient is a 58-year-old male who was brought in for shortness of breath associated with a cough. He notes that he has been weak and had this dry cough associate with some nausea and some intermittent diarrhea for the past week. He denies any fevers. Upon presentation he is found to be hypoxic at 78%. He was placed on 4 L nasal cannula. IV was established blood work was obtained and showed a mild leukocytosis of 10.8 thousand. Mild anemia at 11. INR was unre markable. VBG was unremarkable as well for any significant acidosis. BMP with mild hyponatremia. LFTs were slightly elevated. Influenza was negative. Chest x-ray shows a left midlung and lower lobe infiltrate. Patient was covered with IV Rocephin and Levaquin. He was given IV fluids. He was updated bedside. He was discussed with the hospitalist and admitted as he is febrile and tachycardi c. Discharge Problem: Pneumonia Qualifiers: Aspiration pneumonia type: unspecified Laterality: unspecified laterality Lung location: unspecified part of lung The scribe's documentation has been prepared under my direction and personally reviewed by me in its entirety. I confirm that the note above accurately reflects all work, treatment, procedures, and medical decision making performed by me.
[2019-02-27] MEDS: BREO ELLIPTA - ORDER AWAITING ACTION SCH ×2 (00:23→23:12)
[2019-02-27 06:10] LABS: Hematocrit (blood only) 32.7 % (42-52); Hemoglobin 10.9 g/dL (14.0-18.0); Mean Corpuscular Hemoglobin 31.1 pg (25-34); Mean Corpuscular Hgb Conc 33.3 g/dL (32-36); Mean Corpuscular Volume 93.2 fL (80-100); Mean Platelet Volume 8.6 fL (7.4-10.4); Platelet Count 335 K/uL (130-400); RDW Coefficient of Variation 13.4 % (11.5-14.5); RDW Standard Deviation 45.6 fL (36.4-46.3); Red Blood Count 3.51 M/uL (4.7-6.1); White Blood Count 8.73 K/uL (4.8-10.8)
[2019-02-27 06:40] LABS: BUN Creatinine Ratio 14.3 (10-20); Calcium 9.2 mg/dl (8.5-10.1); Creatinine Clr Calc Pharmacy 114.2 ml/min; Est GFR (African American) 93.7; Est GFR (Non-African American) 80.8; Potassium 3.6 mmol/L (3.5-5.1)
[2019-02-27] MEDS: LOSARTAN POTASSIUM 50 MG TAB PO SCH (07:43)
[2019-02-27] MEDS: ASPIRIN 81 MG ECTAB PO SCH (07:44)
[2019-02-27] MEDS: ROSUVASTATIN CALCIUM 10 MG TAB PO SCH (07:44)
[2019-02-27] MEDS: METOPROLOL TARTRATE 50 MG TAB PO SCH ×2 (07:45→20:27)
[2019-02-27] MEDS: AMLODIPINE BESYLATE 5 MG TAB PO SCH (07:46)
[2019-02-27] MEDS: CEROVITE ADV FORMULA TAB PO SCH (07:46)
[2019-02-27] MEDS: BuPROPion SR 150 MG TABCR PO SCH ×2 (07:47→20:28)
[2019-02-27] MEDS ORDERED: PNEUMOCOCCAL POLYSACCHARIDES 25 MCG/0.5 ML VIAL/SYR IM ONE (08:00)
[2019-02-27] MEDS ORDERED: PNEUMOCOCCAL ADMINISTRATION CHARGE ONE (08:00)
[2019-02-27] MEDS: VILANTEROL INH SCH (09:12)
[2019-02-27] MEDS: FLUTICASONE INH SCH (09:12)
[2019-02-27] MEDS: COUGH DROP (SUGAR FREE) LOZ 24 LOZ/1 BOX BUCCAL PRN ×2 (11:32→20:27)
--- NOTE | 2019-02-27 17:34 | Hospitalist Progress Note ---
Date of Service February 27, 2019 Assessment & Plan (1) Pneumonia: (2) Hypoxia: Present on admission with worsening SOB, fever, weakness and lack of appetite CXR showed left mid lung pneumonia. WBC 10K and febrile with temp 38.3 Nasal swab negative for influenza Received Levaquin and Rocephin in the ER Blood cx pending Continue current abx with IV Rocephin and Levaquin Continue oxygen supplement Continue monitor (3) Cor pulmonale: No sign of volume overloaded lasix on hold, will resume in am Continue monitor (4) COPD (chronic obstructive pulmonary disease): No wheezing on exam Continue home inhalers and oxygen supplement (5) Hypertension: BP controlled continue amlodipine, metoprolol, and losartan (6) ROGELIO treated with BiPAP: BiPAP as per home settings Uses 2 L of oxygen with BiPAP at night (7) Dyslipidemia: Continue statin (8) Depression: Continue bupropion (9) DVT prophylaxis: SQ Lovenox CODE STATUS DNR Subjective Pt was seen and examined Sitting in bed with no distress eating lunch Pt said that he feels a little better He said that he has his appetite back Denies any chest pain, palpitation, dizziness and SOB Physical Exam Physical Exam: General- No acute distress Head- atraumatic Eyes- PERRL, EOMI, ENT- oropharynx clear Neck- supple, no JVD Lungs- Diminished BS Heart- regular rhythm; no murmur Abdomen- normal bowel sounds, soft, nontender Extremities- no calf tenderness Neuro- alert, oriented x 3; PERRL, EOMI; no facial palsy; no dysarthria Skin- warm & dry Results & Data Vital Signs (Past 12 Hours) Vital Signs Temp Pulse Pulse Resp BP BP Pulse Ox 02/27/19 15:13 38.3 C H 92 H 20 117/65 92 02/27/19 11:37 37.5 C 71 22 117/67 91 02/27/19 07:41 72 18 127/73 91
[2019-02-27] MEDS ORDERED: LEVOFLOXACIN/D5W 750 MG/150 ML BAG IV SCH (19:00)
[2019-02-27] MEDS: ENOXAPARIN INJ 40 MG/0.4 ML SYR SQ SCH (20:25)
[2019-02-28] MEDS: FLUTICASONE INH SCH (08:02)
[2019-02-28] MEDS: VILANTEROL INH SCH (08:02)
[2019-02-28] MEDS: ROSUVASTATIN CALCIUM 10 MG TAB PO SCH (08:06)
[2019-02-28] MEDS: METOPROLOL TARTRATE 50 MG TAB PO SCH (08:06)
[2019-02-28] MEDS: LOSARTAN POTASSIUM 50 MG TAB PO SCH (08:06)
[2019-02-28] MEDS: ASPIRIN 81 MG ECTAB PO SCH (08:06)
[2019-02-28] MEDS: BuPROPion SR 150 MG TABCR PO SCH (08:07)
[2019-02-28] MEDS: AMLODIPINE BESYLATE 5 MG TAB PO SCH (08:07)
[2019-02-28] MEDS: CEROVITE ADV FORMULA TAB PO SCH (08:07)
--- NOTE | 2019-02-28 17:21 | Hospitalist Progress Note ---
Date of Service February 28, 2019 Assessment & Plan (1) Pneumonia: (2) Hypoxia: Present on admission with worsening SOB, fever, weakness and lack of appetite CXR showed left mid lung pneumonia. WBC 10K and febrile with temp 38.3 on admission He has been afebrile for over 24 hrs Nasal swab negative for influenza Received Levaquin and Rocephin in the ER Blood cx no growth On abx with IV Rocephin and Levaquin Will transition to oral Levaquin Continue Cpap at night Clinically stable (3) Cor pulmonale: No sign of volume overloaded lasix on hold, will resume in am Continue monitor (4) COPD (chronic obstructive pulmonary disease): No wheezing on exam Continue home inhalers and oxygen supplement (5) Hypertension: BP controlled continue amlodipine, metoprolol, and losartan (6) ROGELIO treated with BiPAP: BiPAP as per home settings Uses 2 L of oxygen with BiPAP at night (7) Dyslipidemia: Continue statin (8) Depression: Continue bupropion (9) DVT prophylaxis: SQ Lovenox CODE STATUS DNR Subjective Pt was seen and examined. Sitting in chair with no distress Pt said that he has been walking in the hallway with no distress He said that he is breathing is much better He has been saturated well on RA He has been afebrile for over 24hr Denies any chest pain, palpitation, dizziness and SOB Physical Exam Physical Exam: General- No acute distress Head- atraumatic Eyes- PERRL, EOMI, ENT- oropharynx clear Neck- supple, no JVD Lungs- Diminished BS Heart- regular rhythm; no murmur Abdomen- normal bowel sounds, soft, nontender Extremities- no calf tenderness Neuro- alert, oriented x 3; PERRL, EOMI; no facial palsy; no dysarthria Skin- warm & dry Results & Data Vital Signs (Past 12 Hours) Vital Signs Temp Pulse Resp BP Pulse Ox 02/28/19 15:08 36.7 C 59 L 16 118/66 98 02/28/19 07:12 36.9 C 72 18 128/75 93
[2019-02-28] MEDS ORDERED: levoFLOXacin 750 MG TAB PO ONE (18:00)
--- NOTE | 2019-03-01 07:52 | Discharge Summary ---
Date of Service February 28, 2019 Admission HPI Per Admitting Provider 58-year-old male who presents to the ED for evaluation of body aches and generalized weakness. Patient reports he has been feeling ill for the past 1 week. Symptoms have been progressively getting worse. He reports a mild, dry productive cough. He has had a very poor appetite with some nausea. He denies any vomiting or abdominal pain. He has had some intermittent diarrhea. Denies chest pain and shortness of breath. No lightheadedness, dizziness, syncopal event. No urinary symptoms. In the ED, patient was found to be hypoxic at 78% on room air. This improved with 4 L of oxygen via nasal cannula. He was also febrile at 38.6. Other vitals are stable. Labs are mostly unremarkable. CXR shows left-sided pneumonia. Patient was given Tylenol, IVF, IV ceftriaxone, IV levofloxacin. Admission Exam Per Admitting Provider Constitutional: WD/WN, vitals as above + obese Eyes: PERRL, conjunctivae normal, anicteric sclerae ENMT: external ear and nose normal, oropharynx normal Respiratory: normal respiratory effort; no respiratory distress Auscultation: + diminished lung sounds (Bilateral bases); no crackles, no rhonchi and no wheezes Cardiovascular: regular rate and regular rhythm Vessels: normal peripheral pulses Extremities: no edema Gastrointestinal:normal bowel sounds, soft, nontender, no hepatosplenomegaly Musculoskeletal: no cyanosis or clubbing, extremities motor strength 5/5 Skin: no rashes Forehead diaphoretic Neurologic: PERRL, EOMI, accommodation nl, no face palsy, no dysarthria Psychiatric: A+Ox3, euthymic affect Principal Diagnosis Pneumonia Hypoxia Cor pulmonale COPD (chronic obstructive pulmonary disease) Hypertension ROGELIO treated with BiPAP Dyslipidemia Depression Discharge Exam General- No acute distress Head- atraumatic Eyes- PERRL, EOMI, ENT- oropharynx clear Neck- supple, no JVD Lungs- Diminished BS Heart- regular rhythm; no murmur Abdomen- normal bowel sounds, soft, nontender Extremities- no calf tenderness Neuro- alert, oriented x 3; PERRL, EOMI; no facial palsy; no dysarthria Skin- warm & dry Discharge Data Allergies Allergy/AdvReac Type Severity Reaction Status Date / Time No Known Allergies Allergy Verified 02/26/19 18:51 Consultations 02/26/19 18:36 ED Decision to Admit Stat 02/26/19 20:27 Consult Case Management - Discharge Planning Routine Ordered Studies XR chest 1V portable CLINICAL HISTORY: 58 years-old Male presenting with Sepsis. TECHNIQUE: Portable upright AP view of the chest was obtained. COMPARISON: 08/11/2016. FINDINGS: Atherosclerosis of the aortic arch. Cardiac silhouette enlarged. Persistent elevation of the right hemidiaphragm. Bandlike opacities at the right lung base. Interval development of patchy mid and peripheral left lung opacities. No large effusion or pneumothorax. Degenerative changes of the thoracic spine. Upper abdomen normal. IMPRESSION: 1. Left mid lung pneumonia. This should be followed to resolution. 2. Cardiomegaly. 3. Chronic right hemidiaphragm paralysis with right basilar atelectasis or scarring. Electronically signed by: Indra Vasquez M.D. 02/26/2019 5:59 PM Dictated: 02/26/191756 Transcribed: 02/26/191756 Hospital Course (1) Pneumonia: (2) Hypoxia: Present on admission with worsening SOB, fever, weakness and lack of appetite CXR showed left mid lung pneumonia. WBC 10K and febrile with temp 38.3 on admission He has been afebrile for over 24 hrs Nasal swab negative for influenza Received Levaquin and Rocephin in the ER Blood cx no growth On abx with IV Rocephin and Levaquin Will transition to oral Levaquin Continue Cpap at night Clinically stable (3) Cor pulmonale: No sign of volume overloaded lasix on hold, will resume in am Continue monitor (4) COPD (chronic obstructive pulmonary disease): No wheezing on exam Continue home inhalers and oxygen supplement (5) Hypertension: BP controlled continue amlodipine, metoprolol, and losartan (6) ROGELIO treated with BiPAP: BiPAP as per home settings Uses 2 L of oxygen with BiPAP at night (7) Dyslipidemia: Continue statin (8) Depression: Continue bupropion (9) DVT prophylaxis: SQ Lovenox CODE STATUS DNR Total Time Total Time Spent Total Time Spent (In Minutes): 35 minutes Total Time Includes: Examination of the Patient, Discharge Planning, Medication Reconciliation, Communication With Other Providers and Other Discharge Plan Discharge Items Patient Disposition: Home - Self-Care Reason For Visit: PNEUMONIA, HYPOXIA Discharge Diagnosis: Pneumonia Hypoxia Cor pulmonale COPD (chronic obstructive pulmonary disease): Activity: Resume your previous activity Non-emergency contact: Primary Care Provider Call non-emergency contact if: you have any medication questions Follow-up/Referrals: [facility],Medicine [Primary Care Provider] - Diet: Heart Healthy Addtl Attending Provider Instructions: Follow up with your primary care provider Dr. Gallagher in 1 week (Office will call you for the appointment) Continue course of antibiotic with Levaquin Continue to use your Cpap at night Your physician will get a repeat chest XRay in 6-8 weeks for follow up Pending Studies at Discharge: No Stand-Alone Forms: My [facility] [employer], Smoking Cessation Medications and DC Order Prescriptions: New levofloxacin [Levaquin] 750 mg tablet 750 mg PO DAILY 4 Days Qty: 4 RF: 0 Continued furosemide 40 mg Tablet 40 mg PO BID RF: 0 bupropion HCl 150 mg Tablet Sustained-Release 12 Hr 150 mg PO BID RF: 0 aspirin 81 mg Tablet,Delayed Release (Dr/Ec) 81 mg PO QAM RF: 0 tramadol 50 mg Tablet 50 mg PO Q6H PRN (Reason: Pain) RF: 0 amlodipine 10 mg Tablet 10 mg PO QAM RF: 0 metoprolol tartrate 50 mg Tablet 50 mg PO BID RF: 0 multivitamin with minerals Tablet 1 tab PO QAM RF: 0 losartan 100 mg Tablet 100 mg PO QAM RF: 0 rosuvastatin [Crestor] 10 mg Tablet 10 mg PO QAM RF: 0 Breo Ellipta 100-25 mcg/dose Blister With Device 1 inh INHALATION DAILY RF: 0 Discharge Orders: Discharge Order (Routine); Ordered 02/28/19 Ordered By: Soumya Shepard Admission Data Admit Date/Time: 02/26/19 19:34 Attending Provider: Soumya Shepard Admit Provider: Eros Bhatia [facility] Other Providers: Dunia Navarro Rajendra P. Other Interventions: Discharge Summary Assessment (RN) Last Done: 02/28/19 17:50 DC Date/Time DO NOT enter until pt leaves facility: 02/28/19 18:20
== END 2019-02-28 18:20 | disposition home or self-care (01) | DRG 194 ==
LOC: ED 17:03 → 4W 19:34 → SUATTDRO 19:34 → 4W 19:58